=== PATIENT | male | born 1960 | race Asian ===

== ENCOUNTER 2019-10-10 16:07 | Inpatient (IN) | payer OTHER ==
[~2019-10-10] VITALS: Ht 172.7 cm; Wt 68.5 kg
[2019-10-10] MEDS ORDERED: ATORVASTATIN CA40 MG ORAL (16:29)
[2019-10-10] MEDS ORDERED: FLOMAX0.4 MG ORAL (16:29)
[2019-10-10] MEDS ORDERED: Omnipaque-300 100ml vial INJ PRN (16:30)
[2019-10-10] MEDS ORDERED: Morphine Sulfate 4mg/ml Inj (IV USE ONLY) IVP ONE (16:30)
[2019-10-10] MEDS ORDERED: METFORMIN HCL500 M1 ORAL (16:34)
[2019-10-10 16:40] VITALS: BP 106/57
[2019-10-10 16:53] LABS: ANION GAP 13 mmol/L (5-15); BLOOD UREA NITROGEN 24 mg/dL (7-18); CALCIUM 9.5 MG/DL (8.5-10.1); CARBON DIOXIDE 27 MMOL/L (21-32); CHLORIDE 99 MMOL/L (98-107); CREATININE 1.1 MG/DL (0.55-1.30); POTASSIUM 3.8 MMOL/L (3.5-5.1); SODIUM 139 MMOL/L (136-145)
[2019-10-10 16:59] LABS: ALANINE AMINOTRANSFERASE 328 U/L (12-78); ALBUMIN 4.1 G/DL (3.4-5.0); ALBUMIN/GLOBULIN RATIO 1.2 (1.0-2.7); ALKALINE PHOSPHATASE 172 U/L (46-116); ASPARTATE AMINO TRANSFERASE 783 U/L (15-37); BILIRUBIN,TOTAL 1.5 MG/DL (0.2-1.0)
[2019-10-10 17:00] LABS: BASOPHILS % (AUTO) 0.6 % (0.0-2.0); EOSINOPHILS % (AUTO) 0.4 % (0.0-3.0); HEMATOCRIT 41.9 % (42.0-52.0); HEMOGLOBIN 14.5 G/DL (14.2-18.0); LYMPHOCYTES % (AUTO) 22.1 % (20.0-45.0); MEAN CORPUSCULAR VOLUME 92 FL (80-99); MONOCYTES % (AUTO) 4.1 % (1.0-10.0); NEUTROPHILS % (AUTO) 72.8 % (45.0-75.0); PLATELET COUNT 174 K/UL (150-450); RED BLOOD COUNT 4.56 M/UL (4.70-6.10); RED CELL DISTRIBUTION WIDTH 11.3 % (11.6-14.8)
[2019-10-10] MEDS ORDERED: HYDROmorphone 1mg/ml Carpuject IVP ONE (17:30)
[2019-10-10] MEDS ORDERED: HYDROmorphone 1mg/ml Carpuject ONE (17:33)
[2019-10-10 18:00] VITALS: BP 157/83
[2019-10-10] MEDS ORDERED: Acetaminophen 500mg (ES) tab ORAL ONE (18:00)
--- NOTE | 2019-10-10 18:19 | Emergency Room Report ---
History of Present Illness General Chief Complaint: Abdominal Pain Source: Family Member, EMS Present Illness HPI 59-year-old male presents to ED abdominal pain and vomiting. Brought in by EMS. States that pain started this morning. Pain is epigastric, 10 out of 10, sharp, nonradiating. Denies fevers or chills. Denies chest pain or shortness of breath. History of colon cancer with multiple surgeries. Has been treated with chemotherapy. Had a recent colonoscopy done. No other aggravating relieving factors. Denies any other associated symptoms Allergies: Coded Allergies: No Known Allergies (Unverified , 10/10/19) COVID-19 Screening Contact w/high risk pt: No Experienced COVID-19 symptoms?: Yes COVID-19 Testing performed TRICHOLOGIST: Yes COVID-19 Screening: Negative COVID-19 COVID-19 Testing Source: unknown Patient History Past Medical History: DM, HTN, other - colon cancer Past Surgical History: other - sigmoid resection, double barrel tranverse colostomy, reverse colostomy, s/p TURP Pertinent Family History: none Social History: Denies: smoking, alcohol use, drug use Immunizations: UTD Reviewed Nursing Documentation: PMH: Agreed; PSxH: Agreed Nursing Documentation-PMH Past Medical History: No History, Except For Hx Cardiac Problems: No Hx Hypertension: Yes Hx Pacemaker: No Hx Asthma: No Hx COPD: No Hx Diabetes: Yes Hx Cancer: Yes - Stage 4 sigmoid colon CA and prostate CA Hx Gastrointestinal Problems: No Hx Dialysis: No History Of Psychiatric Problem: No Hx Neurological Problems: No Hx Cerebrovascular Accident: No Hx Seizures: No Review of Systems All Other Systems: negative except mentioned in HPI Physical Exam Vital Signs Date Time Temp Pulse Resp B/P (MAP) Pulse Ox O2 Delivery O2 Flow Rate FiO2 10/10/19 16:13 98.2 59 18 126/76 (93) 99 Room Air Sp02 EP Interpretation: reviewed, normal General Appearance: alert, GCS 15, non-toxic, mild distress Head: normocephalic, atraumatic Eyes: bilateral eye normal inspection, bilateral eye PERRL ENT: hearing grossly normal, normal pharynx, no angioedema, normal voice Neck: full range of motion, supple/symm/no masses Respiratory: chest non-tender, lungs clear, normal breath sounds, speaking full sentences Cardiovascular #1: regular rate, rhythm, no edema Cardiovascular #2: 2+ carotid (R), 2+ carotid (L), 2+ radial (R), 2+ radial (L) , 2+ dorsalis pedis (R), 2+ dorsalis pedis (L) Gastrointestinal: normal bowel sounds, soft, non-distended, no guarding, no rebound, tenderness, other - midline surgical scar noted Rectal: deferred Genitourinary: normal inspection, no CVA tenderness Musculoskeletal: back normal, normal range of motion, gait/station normal, non- tender Neurologic: alert, motor strength/tone normal, oriented x3, sensory intact, responsive, speech normal Psychiatric: judgement/insight normal, memory normal, mood/affect normal, no suicidal/homicidal ideation Reflexes: 3+ bicep (R), 3+ bicep (L), 3+ tricep (R), 3+ tricep (L), 3+ knee (R) , 3+ knee (L) Skin: no rash Lymphatic: no adenopathy Procedures Critical Care Time Critical Care Time i. I feel this is a highly complex case requiring extensive working including EKG/Rhythm strip, Xray/CT/US, Blood/urine lab work, repeat exams while in ED, and administration of strong opiates/narcotics for pain control, admission to hospital or close patient follow up. Total time: 60 min bedside evaluation and treatment excludes procedures (EKG). Reason for critical care: severe sepsis, gallstone pancreatitis Possible complications: hypotension, hypertension, MN, shock, arrhythmias, metabolic acidosis, end organ damage, respiratory failure. Interventions: Labs, IV fluids, CT, pain meds, discussion with patient surgeon, additional fluid boluses. Broad-spectrum antibiotics. Discussed with surgery. Course: Presenting with abdominal pain. History of resection as well as colostomy and reversal. Status post colonoscopy with polyp removal last week. Leukocytosis noted. LFTs elevated. Lipase greater than 14,000, initial lactic 2.5. CT shows gallstone pancreatitis. Atelectasis in lower lung [place]. COVID swab negative. Repeat lactic 9.9. Discussed with surgery. Broad- spectrum antibiotics given. Consultations: nursing staff, EMS, family Performed by: Dr Muñiz Tolerated well condition = critical j. because of unstable vital signs this patient had a condition that could potentially threaten life or limb. I feel this is a critical patient who required my full attention while patient was considered critical. Total Critical Care Time excluding procedures was greater than 60 minutes Medical Decision Making Diagnostic Impression: Primary Impression: Gallstone pancreatitis Additional Impressions: Pneumonia Qualified Codes: J18.9 - Pneumonia, unspecified organism Severe sepsis Colon cancer Qualified Codes: C18.7 - Malignant neoplasm of sigmoid colon ER Course Hospital Course 59-year-old male presents with abdominal pain and vomiting. History of colon cancer. Status post colonoscopy and polyp removal Differential diagnoses include: gastritis, pancreatitis, SBO Clinical course Patient placed on stretcher. potline monitor. After initial history and physical I ordered labs, IV fluids, UA, pain medication and CT scan Labs - noted leukocytosis, Hb/Hct stable. electrolytes ok. Lipase > 07355, LFTS elevated, lactic 2.5 CT abdomen and pelvis - distended GB, pancreatitis clinically concerning for pancreatitis. Discussed case with his colorectal surgeon at [facility] Dr. Karyna May. Repeat lactic 9.9. Given broad- spectrum antibiotics. Rapid COVID negative Dr Baxter consulted. Dr Ortega will admit patient I feel this is a highly complex case requiring extensive working including EKG/ Rhythm strip, Xray/CT/US, Blood/urine lab work, repeat exams while in ED, and administration of strong opiates/narcotics for pain control, admission to hospital or close patient follow up. Diagnosis -gallstone pancreatitis, pneumonia, severe sepsis, colon cancer Patient admitted to SDU in critcal condition Labs Test 10/10/19 16:20 10/10/19 17:05 10/10/19 17:50 10/10/19 18:47 White Blood Count 11.0 K/UL (4.8-10.8) Red Blood Count 4.56 M/UL (4.70-6.10) Hemoglobin 14.5 G/DL (14.2-18.0) Hematocrit 41.9 % (42.0-52.0) Mean Corpuscular Volume 92 FL (80-99) Mean Corpuscular Hemoglobin 31.8 PG (27.0-31.0) Mean Corpuscular Hemoglobin Concent 34.5 G/DL (32.0-36.0) Red Cell Distribution Width 11.3 % (11.6-14.8) Platelet Count 174 K/UL (150-450) Mean Platelet Volume 7.4 FL (6.5-10.1) Neutrophils (%) (Auto) 72.8 % (45.0-75.0) Lymphocytes (%) (Auto) 22.1 % (20.0-45.0) Monocytes (%) (Auto) 4.1 % (1.0-10.0) Eosinophils (%) (Auto) 0.4 % (0.0-3.0) Basophils (%) (Auto) 0.6 % (0.0-2.0) Prothrombin Time 10.9 SEC (9.30-11.50) Prothromb Time International Ratio 1.0 (0.9-1.1) Activated Partial Thromboplast Time 22 SEC (23-33) Sodium Level 139 MMOL/L (136-145) Potassium Level 3.8 MMOL/L (3.5-5.1) Chloride Level 99 MMOL/L (98-107) Carbon Dioxide Level 27 MMOL/L (21-32) Anion Gap 13 mmol/L (5-15) Blood Urea Nitrogen 24 mg/dL (7-18) Creatinine 1.1 MG/DL (0.55-1.30) Estimat Glomerular Filtration Rate > 60 mL/min (>60) Glucose Level 188 MG/DL (74-106) Calcium Level 9.5 MG/DL (8.5-10.1) Total Bilirubin 1.5 MG/DL (0.2-1.0) Direct Bilirubin 1.0 MG/DL (0.0-0.3) Aspartate Amino Transf (AST/SGOT) 783 U/L (15-37) Alanine Aminotransferase (ALT/SGPT) 328 U/L (12-78) Alkaline Phosphatase 172 U/L (46-116) Total Protein 7.5 G/DL (6.4-8.2) Albumin 4.1 G/DL (3.4-5.0) Globulin 3.4 g/dL Albumin/Globulin Ratio 1.2 (1.0-2.7) Amylase Level 4350 U/L (25-115) Lipase 74876 U/L (73-393) Lactic Acid Level 2.50 mmol/L (0.4-2.0) 9.90 mmol/L (0.66-2.22) Urine Color Lisa Urine Appearance Clear Urine pH 5 (4.5-8.0) Urine Specific [place] 1.005 (1.005-1.035) Urine Protein 1+ (NEGATIVE) Urine Glucose (UA) 2+ (NEGATIVE) Urine Ketones 1+ (NEGATIVE) Urine Blood 4+ (NEGATIVE) Urine Nitrite Negative (NEGATIVE) Urine Bilirubin Negative (NEGATIVE) Urine Ictotest Negative (NEGATIVE) Urine Urobilinogen Normal MG/DL (0.0-1.0) Urine Leukocyte Esterase Negative (NEGATIVE) Urine RBC 20-30 /HPF (0 - 0) Urine WBC 0-2 /HPF (0 - 0) Urine Squamous Epithelial Cells Occasional /LPF Urine Bacteria Few /HPF (NONE) CT/MRI/US Diagnostic Results CT/MRI/US Diagnostic Results : Imaging Test Ordered: CT A/P Impression EXAM: CT Abdomen and Pelvis With Intravenous Contrast CLINICAL HISTORY: ABD PAIN TECHNIQUE: Axial computed tomography images of the abdomen and pelvis with intravenous contrast. CTDI is 5.5 mGy and DLP is 299.8 mGy-cm. One or more of the following dose reduction techniques were used: automated exposure control, adjustment of the mA and/or kV according to patient size, use of iterative reconstruction technique. COMPARISON: No relevant prior studies available. FINDINGS: Mild subsegmental basilar atelectasis, left more pronounced than right. No acute basilar infiltrate. Extensive peripancreatic edema system with severe, acute pancreatitis. No clear focal glandular necrosis. No loculated fluid collection. No hemorrhage or gas. Mild extrahepatic biliary dilation. Enhancing gallbladder wall. No radiopaque gallstone. Recommend correlation for elevated biliary markers in addition to pancreatic enzymes. Renal cysts and hypodensities that are too small to characterize. No hydronephrosis. Transverse colonic resection with intact anastomosis. No bowel obstruction. The appendix is unremarkable. Aortoiliac atherosclerosis without aneurysm. No acute fracture. Mild thoracolumbar spondylosis. IMPRESSION: Acute pancreatitis. Distended gallbladder and CBD. No radiopaque gallstone, but recommend clinical/laboratory correlation. Incidental findings as above. Last Vital Signs Date Time Temp Pulse Resp B/P (MAP) Pulse Ox O2 Delivery O2 Flow Rate FiO2 10/10/19 18:12 98.2 10/10/19 16:40 63 22 106/57 95 Room Air Status: improved Disposition: ADMITTED INPATIENT Condition: Critical Referrals: [facility]ERR[facility] (PCP) Hoang Muñiz MD Oct 10, 2019 18:19
--- NOTE | 2019-10-10 18:36 | Diagnostic Imaging Report ---
EXAM: CT Abdomen and Pelvis With Intravenous Contrast CLINICAL HISTORY: ABD PAIN TECHNIQUE: Axial computed tomography images of the abdomen and pelvis with intravenous contrast. CTDI is 5.5 mGy and DLP is 299.8 mGy-cm. One or more of the following dose reduction techniques were used: automated exposure control, adjustment of the mA and/or kV according to patient size, use of iterative reconstruction technique. COMPARISON: No relevant prior studies available. FINDINGS: Mild subsegmental basilar atelectasis, left more pronounced than right. No acute basilar infiltrate. Extensive peripancreatic edema system with severe, acute pancreatitis. No clear focal glandular necrosis. No loculated fluid collection. No hemorrhage or gas. Mild extrahepatic biliary dilation. Enhancing gallbladder wall. No radiopaque gallstone. Recommend correlation for elevated biliary markers in addition to pancreatic enzymes. Renal cysts and hypodensities that are too small to characterize. No hydronephrosis. Transverse colonic resection with intact anastomosis. No bowel obstruction. The appendix is unremarkable. Aortoiliac atherosclerosis without aneurysm. No acute fracture. Mild thoracolumbar spondylosis. IMPRESSION: Acute pancreatitis. Distended gallbladder and CBD. No radiopaque gallstone, but recommend clinical/laboratory correlation. Incidental findings as above.
[2019-10-10] MEDS ORDERED: Piperacillin/Tazobactam 3.375 GM in NS 110 ML IVPB ONE (18:45)
[2019-10-10 18:48] VITALS: BP 141/82
[2019-10-10 18:52] LABS: APPEARANCE,URINE CLEAR; BILIRUBIN, URINE NEGATIVE (NEGATIVE); COLOR,URINE AMBER; GLUCOSE, URINE (UA) 2+ (NEGATIVE); KETONES,URINE 1+ (NEGATIVE); LEUKOCYTE ESTERASE ,URINE NEGATIVE (NEGATIVE); NITRITE,URINE NEGATIVE (NEGATIVE); PH,URINE 5 (4.5-8.0); PROTEIN,URINE 1+ (NEGATIVE); UROBILINOGEN,URINE NORMAL MG/DL (0.0-1.0)
[2019-10-10] MEDS ORDERED: Azithromycin 500 MG in NS 275 ML IV ONE (19:30)
[2019-10-10 21:56] VITALS: BP 125/74
[2019-10-10] MEDS: Morphine Sulfate 2mg/ml Inj(IV/IM USE ONLY) IVP PRN (23:02)
[2019-10-11] VITALS (7 sets, daily range): BP systolic 129–152; BP diastolic 69–79
[2019-10-11] MEDS: Morphine Sulfate 2mg/ml Inj(IV/IM USE ONLY) IVP PRN (05:02)
[2019-10-11] MEDS ORDERED: Morphine Sulfate 2mg/ml Inj(IV/IM USE ONLY) IVP SCH (08:30)
[2019-10-11] MEDS ORDERED: Pantoprazole Inj IVP SCH (09:00)
[2019-10-11] MEDS ORDERED: HYDROmorphone 1mg/ml Carpuject IVP PRN (09:00)
--- NOTE | 2019-10-11 10:15 | General Progress Note ---
Assessment/Plan Assessment/Plan: pancreatitis elevated LFTS h/o colon CA ivf npo pain meds MRCP ercp if needed Subjective Allergies: Coded Allergies: No Known Allergies (Unverified , 10/10/19) Objective Last 24 Hour Vital Signs Date Time Temp Pulse Resp B/P (MAP) Pulse Ox O2 Delivery O2 Flow Rate FiO2 10/11/19 08:00 97.0 62 20 142/78 (99) 98 10/11/19 05:32 98.1 10/11/19 05:00 81 20 152/69 (96) 99 10/11/19 04:00 98.0 76 20 142/69 (93) 97 10/11/19 04:00 2.0 10/11/19 04:00 Nasal Cannula 2.0 10/11/19 03:42 81 10/11/19 00:00 98.1 94 20 129/77 (94) 96 10/11/19 00:00 Nasal Cannula 2.0 10/11/19 00:00 2.0 10/10/19 23:30 94 10/10/19 22:03 97 10/10/19 22:00 Nasal Cannula 2.0 10/10/19 22:00 2.0 10/10/19 22:00 Nasal Cannula 2.0 10/10/19 21:56 98.6 95 18 125/74 (91) 100 10/10/19 21:49 99.8 92 20 132/78 99 Nasal Cannula 2.0 10/10/19 19:00 101.4 10/10/19 18:48 98.2 102 20 141/82 99 Room Air 10/10/19 18:12 98.2 10/10/19 18:00 101.7 106 20 157/83 99 Room Air 10/10/19 17:29 98.2 10/10/19 16:40 98.2 63 22 106/57 95 Room Air 10/10/19 16:38 59 18 Room Air 10/10/19 16:13 98.2 59 18 126/76 (93) 99 Room Air Intake and Output 10/10/19 10/11/19 19:00 07:00 Intake Total 803 ml Output Total 756 ml Balance 47 ml Intake IV Total 803 ml Output Urine Total 756 ml Laboratory Tests 10/10/19 16:20: White Blood Count 11.0H, Red Blood Count 4.56L, Hemoglobin 14.5, Hematocrit 41.9L, Mean Corpuscular Volume 92, Mean Corpuscular Hemoglobin 31.8H, Mean Corpuscular Hemoglobin Concent 34.5, Red Cell Distribution Width 11.3L, Platelet Count 174, Mean Platelet Volume 7.4, Neutrophils (%) (Auto) 72.8, Lymphocytes (%) (Auto) 22.1, Monocytes (%) (Auto) 4.1, Eosinophils (%) (Auto) 0.4, Basophils (%) (Auto) 0.6, Prothrombin Time 10.9, Prothromb Time International Ratio 1.0, Activated Partial Thromboplast Time 22L, Sodium Level 139, Potassium Level 3.8, Chloride Level 99, Carbon Dioxide Level 27, Anion Gap 13, Blood Urea Nitrogen 24H, Creatinine 1.1, Estimat Glomerular Filtration Rate > 60, Glucose Level 188H, Calcium Level 9.5, Total Bilirubin 1.5H, Direct Bilirubin 1.0H, Aspartate Amino Transf (AST/SGOT) 783H, Alanine Aminotransferase (ALT/SGPT) 328H, Alkaline Phosphatase 172H, Total Protein 7.5, Albumin 4.1, Globulin 3.4, Albumin/Globulin Ratio 1.2, Amylase Level 4350*H, Lipase [id number] 10/10/19 17:05: Lactic Acid Level 2.50H 10/10/19 17:50: Lactic Acid Level 9.90H 10/10/19 18:47: Urine Color Lisa, Urine Appearance Clear, Urine pH 5, Urine Specific [place] 1.005, Urine Protein 1+H, Urine Glucose (UA) 2+H, Urine Ketones 1+H, Urine Blood 4+H, Urine Nitrite Negative, Urine Bilirubin Negative, Urine Ictotest Negative, Urine Urobilinogen Normal, Urine Leukocyte Esterase Negative, Urine RBC 20-30H, Urine WBC 0-2, Urine Squamous Epithelial Cells Occasional, Urine Bacteria Few 10/11/19 04:00: Lactic Acid Level 2.00 Height (Feet): 5 Height (Inches): 8.00 Weight (Pounds): 160 General Appearance: alert EENT: normal ENT inspection Neck: supple Cardiovascular: tachycardia Respiratory/Chest: decreased breath sounds Abdomen: hypoactive bowel sounds, tender Extremities: non-tender Ken Justin MD Oct 11, 2019 10:15
[2019-10-11] MEDS ORDERED: NovoLOG Insulin Flexpen SUBQ SCH ×2 (11:30→16:30)
--- NOTE | 2019-10-11 12:48 | Consultation ---
History of Present Illness General Date patient seen: Oct 11, 2019 Reason for Hospitalization: Abdominal Pain Present Illness HPI This is a 59-year-old male with history of colon cancer status post prior colostomy multiple abdominal surgeries resection chemotherapy was been doing well until recently when developed pain nausea and vomiting. Came to [facility] for evaluation identified to have severe pancreatitis. Admitted further care management. Surgery called to eval and assist with care. Patient seen, patient evaluate, chart reviewed. Patient generalized abdominal pain. Labs noted. Exam as below. States pain 6 out of 10 without radiation. Cramping. Abnormal labs. Lactic acidosis. CT as below. Allergies: Coded Allergies: No Known Allergies (Unverified , 10/10/19) COVID-19 Screening Contact w/high risk pt: No Experienced COVID-19 symptoms?: No Medication History Scheduled Atorvastatin Calcium* (Atorvastatin Calcium*), 20 MG ORAL BEDTIME, (Reported) Metformin Hcl* (Metformin Hcl*), 500 MG ORAL TWICE A DAY, (Reported) Tamsulosin HCl (Flomax), 0.4 MG ORAL BID, (Reported) Patient History History Provided By: Patient, Medical Record, PMD Healthcare decision maker Resuscitation status Advanced Directive on File Past Medical/Surgical History Past Medical/Surgical History: (1) Colon cancer (2) Pneumonia (3) Severe sepsis (4) Gallstone pancreatitis Review of Systems Review of Symptoms General ROS: no weight loss or fever Psychological ROS: no depression or mood changes, no memory loss Ophthalmic ROS: no visual changes or eye irritation ENT ROS: no nasal congestion, hearing loss, dizziness Allergy and Immunology ROS: no allergic symptoms or urticaria Hematological and Lymphatic ROS: no swollen glands, unusual bleeding or bruising Endocrine ROS: no polyuria, polydipsia, weight changes, temperature intolerance Respiratory ROS: no cough, shortness of breath, or wheezing Cardiovascular ROS: no chest pain or dyspnea on exertion Gastrointestinal ROS: +abdominal pain, no bright red blood in stool. Musculoskeletal ROS: no myalgias or arthralgias Neurological ROS: no TIA or stroke symptoms Dermatological ROS: no new or changing skin lesions, rashes or pruritis Physical Exam Physical Exam General appearance: alert, cooperative, no distress, appears stated age Head: Normocephalic, without obvious abnormality, atraumatic Eyes: conjunctivae/corneas clear. PERRL, EOM's intact. Fundi benign Throat: Lips, mucosa, and tongue normal. Teeth and gums normal Neck: supple, symmetrical, trachea midline, no adenopathy, thyroid: not enlarged, symmetric, no tenderness/mass/nodules, no carotid bruit and no JVD Lungs: clear to auscultation bilaterally Heart: regular rate and rhythm, S1, S2 normal, no murmur, click, rub or gallop Abdomen: soft, generalized tender. Bowel sounds normal. No masses, no organomegaly prior incisions well healed Extremities: extremities normal, atraumatic, no cyanosis or edema Pulses: 2+ and symmetric Skin: Skin color, texture, turgor normal. No rashes or lesions Neurologic: Grossly normal Last 24 Hour Vital Signs Date Time Temp Pulse Resp B/P (MAP) Pulse Ox O2 Delivery O2 Flow Rate FiO2 10/11/19 12:00 2.0 10/11/19 08:00 2.0 10/11/19 08:00 63 10/11/19 08:00 97.0 62 20 142/78 (99) 98 10/11/19 05:32 98.1 10/11/19 05:00 81 20 152/69 (96) 99 10/11/19 04:00 98.0 76 20 142/69 (93) 97 10/11/19 04:00 2.0 10/11/19 04:00 Nasal Cannula 2.0 10/11/19 03:42 81 10/11/19 00:00 98.1 94 20 129/77 (94) 96 10/11/19 00:00 Nasal Cannula 2.0 10/11/19 00:00 2.0 10/10/19 23:30 94 10/10/19 22:03 97 10/10/19 22:00 Nasal Cannula 2.0 10/10/19 22:00 2.0 10/10/19 22:00 Nasal Cannula 2.0 10/10/19 21:56 98.6 95 18 125/74 (91) 100 10/10/19 21:49 99.8 92 20 132/78 99 Nasal Cannula 2.0 10/10/19 19:00 101.4 10/10/19 18:48 98.2 102 20 141/82 99 Room Air 10/10/19 18:12 98.2 10/10/19 18:00 101.7 106 20 157/83 99 Room Air 10/10/19 17:29 98.2 10/10/19 16:40 98.2 63 22 106/57 95 Room Air 10/10/19 16:38 59 18 Room Air 10/10/19 16:13 98.2 59 18 126/76 (93) 99 Room Air Intake and Output 10/10/19 10/11/19 19:00 07:00 Intake Total 803 ml Output Total 756 ml Balance 47 ml Intake IV Total 803 ml Output Urine Total 756 ml Laboratory Tests Test 10/10/19 16:20 10/10/19 17:05 10/10/19 17:50 10/10/19 18:47 White Blood Count 11.0 K/UL (4.8-10.8) H Red Blood Count 4.56 M/UL (4.70-6.10) L Hemoglobin 14.5 G/DL (14.2-18.0) Hematocrit 41.9 % (42.0-52.0) L Mean Corpuscular Volume 92 FL (80-99) Mean Corpuscular Hemoglobin 31.8 PG (27.0-31.0) H Mean Corpuscular Hemoglobin Concent 34.5 G/DL (32.0-36.0) Red Cell Distribution Width 11.3 % (11.6-14.8) L Platelet Count 174 K/UL (150-450) Mean Platelet Volume 7.4 FL (6.5-10.1) Neutrophils (%) (Auto) 72.8 % (45.0-75.0) Lymphocytes (%) (Auto) 22.1 % (20.0-45.0) Monocytes (%) (Auto) 4.1 % (1.0-10.0) Eosinophils (%) (Auto) 0.4 % (0.0-3.0) Basophils (%) (Auto) 0.6 % (0.0-2.0) Prothrombin Time 10.9 SEC (9.30-11.50) Prothromb Time International Ratio 1.0 (0.9-1.1) Activated Partial Thromboplast Time 22 SEC (23-33) L Sodium Level 139 MMOL/L (136-145) Potassium Level 3.8 MMOL/L (3.5-5.1) Chloride Level 99 MMOL/L (98-107) Carbon Dioxide Level 27 MMOL/L (21-32) Anion Gap 13 mmol/L (5-15) Blood Urea Nitrogen 24 mg/dL (7-18) H Creatinine 1.1 MG/DL (0.55-1.30) Estimat Glomerular Filtration Rate > 60 mL/min (>60) Glucose Level 188 MG/DL (74-106) H Calcium Level 9.5 MG/DL (8.5-10.1) Total Bilirubin 1.5 MG/DL (0.2-1.0) H Direct Bilirubin 1.0 MG/DL (0.0-0.3) H Aspartate Amino Transf (AST/SGOT) 783 U/L (15-37) H Alanine Aminotransferase (ALT/SGPT) 328 U/L (12-78) H Alkaline Phosphatase 172 U/L (46-116) H Total Protein 7.5 G/DL (6.4-8.2) Albumin 4.1 G/DL (3.4-5.0) Globulin 3.4 g/dL Albumin/Globulin Ratio 1.2 (1.0-2.7) Amylase Level 4350 U/L (25-115) *H Lipase 55021 U/L (73-393) H Lactic Acid Level 2.50 mmol/L (0.4-2.0) H 9.90 mmol/L (0.66-2.22) H Urine Color Lisa Urine Appearance Clear Urine pH 5 (4.5-8.0) Urine Specific [place] 1.005 (1.005-1.035) Urine Protein 1+ (NEGATIVE) H Urine Glucose (UA) 2+ (NEGATIVE) H Urine Ketones 1+ (NEGATIVE) H Urine Blood 4+ (NEGATIVE) H Urine Nitrite Negative (NEGATIVE) Urine Bilirubin Negative (NEGATIVE) Urine Ictotest Negative (NEGATIVE) Urine Urobilinogen Normal MG/DL (0.0-1.0) Urine Leukocyte Esterase Negative (NEGATIVE) Urine RBC 20-30 /HPF (0 - 0) H Urine WBC 0-2 /HPF (0 - 0) Urine Squamous Epithelial Cells Occasional /LPF Urine Bacteria Few /HPF (NONE) Test 10/11/19 04:00 Lactic Acid Level 2.00 mmol/L (0.4-2.0) Microbiology Date/Time Source Procedure Growth Status 10/10/19 18:45 Blood Blood Culture - Preliminary Resulted 10/10/19 18:52 Nasopharynx SARS-CoV-2 RdRp Gene Assay - Final Complete Height (Feet): 5 Height (Inches): 8.00 Weight (Pounds): 160 Medications Current Medications Medications (Trade) Dose Ordered Sig/Freida Route PRN Reason Start Time Stop Time Status Last Admin Dose Admin Dextrose (Dextrose 50%) 25 ml Q30M PRN IV Hypoglycemia 10/11/19 11:00 01/09/20 10:59 Dextrose (Dextrose 50%) 50 ml Q30M PRN IV Hypoglycemia 10/11/19 11:00 01/09/20 10:59 Hydromorphone HCl (Dilaudid) 1 mg Q4H PRN IVP For Pain 10/11/19 09:00 10/18/19 08:59 Insulin Aspart (NovoLOG) BIAC SUBQ 10/11/19 16:30 01/09/20 11:29 Iohexol (OMNIPAQUE-300 100ml) 100 ml NOW PRN INJ Radiology Procedure 10/10/19 16:30 10/12/19 16:26 Levofloxacin 100 ml @ 100 mls/hr Q24H IVPB 10/11/19 21:00 10/18/19 20:59 Ondansetron HCl (Zofran) 4 mg Q4H PRN IVP Nausea & Vomiting 10/10/19 22:45 11/09/19 22:44 10/11/19 05:04 Pantoprazole (Protonix) 40 mg DAILY IVP 10/11/19 09:00 11/10/19 08:59 10/11/19 08:46 Piperacillin Sod/ Tazobactam Sod 3.375 gm/Sodium Chloride 110 ml @ 27.5 mls/hr EVERY 8 HOURS IVPB 10/11/19 14:00 10/16/19 13:59 Sodium Chloride 1,000 ml @ 100 mls/hr Q10H IV 10/10/19 23:00 11/09/19 22:59 10/11/19 08:46 Assessment/Plan Problem List: (1) Colon cancer ICD Codes: C18.9 - Malignant neoplasm of colon, unspecified SNOMED: 785658743 Qualifiers: Qualified Codes: C18.7 - Malignant neoplasm of sigmoid colon (2) Pneumonia ICD Codes: J18.9 - Pneumonia, unspecified organism SNOMED: 570758746 Qualifiers: Qualified Codes: J18.9 - Pneumonia, unspecified organism (3) Severe sepsis ICD Codes: A41.9 - Sepsis, unspecified organism; R65.20 - Severe sepsis without septic shock SNOMED: 13298878 (4) Gallstone pancreatitis Assessment & Plan: 59-year-old male history of colon cancer chemo therapy resection doing well to recently developed arm pain nausea and vomiting. Identified to have severe acute gallstone pancreatitis. Abdomen tender but not in acute abdomen with peritonitis Currently no nausea vomiting leukocytosis lactic acidosis improving with resuscitation N.p.o. IV fluids Pending imaging studies Trend labs We will follow with recommendations thank you for let me participate in patient' s care mild subsegmental basilar atelectasis, left more pronounced than right. No acute basilar infiltrate. Extensive peripancreatic edema system with severe, acute pancreatitis. No clear focal glandular necrosis. No loculated fluid collection. No hemorrhage or gas. Mild extrahepatic biliary dilation. Enhancing gallbladder wall. No radiopaque gallstone. Recommend correlation for elevated biliary markers in addition to pancreatic enzymes. Renal cysts and hypodensities that are too small to characterize. No hydronephrosis. Transverse colonic resection with intact anastomosis. No bowel obstruction. The appendix is unremarkable. Aortoiliac atherosclerosis without aneurysm. No acute fracture. Mild thoracolumbar spondylosis. IMPRESSION: Acute pancreatitis. Distended gallbladder and CBD. No radiopaque gallstone, but recommend clinical/laboratory correlation. Incidental findings as above. ICD Codes: K85.10 - Biliary acute pancreatitis without necrosis or infection; R65.20 - Severe sepsis without septic shock SNOMED: [id number] Yury Baxter Oct 11, 2019 12:48
[2019-10-11] MEDS ORDERED: Piperacillin/Tazobactam 3.375 GM in NS 110 ML IVPB SCH (14:00)
--- NOTE | 2019-10-11 14:36 | Diagnostic Imaging Report ---
Indication: Pain, trauma Technique: 3 views left hand Comparison: none Findings: There is a nondisplaced fracture the base of the fourth metacarpal. No other acute fractures. No dislocations. Impression: Positive for fourth metacarpal base fracture Unit nurse notified at the time of interpretation.
[2019-10-11] MEDS: Piperacillin/Tazobactam 3.375 GM in NS 110 ML IVPB SCH ×2 (14:58→22:14)
--- NOTE | 2019-10-11 15:13 | Diagnostic Imaging Report ---
Indication: Abdominal pain, pancreatitis, abnormal liver function tests Technique: Coronal and axial single shot fast spin-echo breath-hold, axial T2 FRFSE, 2-D thick slab MRCP, AXIAL 2-D FIESTA fat saturated, axial 3-D dual echo breath-hold, water weighted axial LAVA FLEX, revealed 3-D MRCP images were obtained of the abdomen. MIP reconstructions were generated of the bile ducts Comparison: Reference made to abdomen pelvis CT dated 10/10/2019 Findings: Gallbladder demonstrates filling defects consistent with gallstones. The gallbladder wall is mildly thickened and mildly edematous. The common hepatic duct is mildly ectatic, measuring up to 9 mm in diameter. The common bile duct is normal in caliber. No intraluminal filling defect or obstructing stone is demonstrated. There is somewhat low insertion of the cystic duct into the common hepatic duct The pancreas is enlarged and edematous, and considerable phlegmon is seen within upper abdominal fat, similar in distribution to that described on prior CT scan. No discrete walled off fluid collection demonstrated. The pancreatic duct is normal in caliber. No focal liver lesion demonstrated. The spleen, adrenals are unremarkable. The kidneys demonstrate cysts bilaterally. The included upper pelvis appears unremarkable. Impression: Evidence of acute pancreatitis, also described on recent CT scan. No discrete fluid collection to suggest abscess or early pseudocyst formation Cholelithiasis. Mild gallbladder wall thickening. This could be related to the adjacent pancreatic inflammation, or could indicate acute cholecystitis. Correlate with clinical findings, consider nuclear medicine hepatobiliary scan if clinically indicated Ectatic common hepatic duct demonstrated, significance/etiology uncertain. Normal caliber common bile duct. No definite downstream obstructive lesion Incidental finding of bilateral renal cysts
--- NOTE | 2019-10-11 15:14 | Consultation ---
DATE OF CONSULTATION: 10/11/2019 INFECTIOUS DISEASE CONSULTATION CONSULTING PHYSICIAN: Mario Sawyer MD. REFERRING PHYSICIAN: Evert Ortega MD. REASON FOR CONSULTATION: Pancreatitis. HISTORY OF PRESENTING ILLNESS: This is a 59-year-old gentleman with history of diabetes, hypertension, colon cancer, status post sigmoid resection, colostomy, and status post TURP, who came in after a fall. He also has abdominal pain and vomiting. He was found to have pancreatitis and an Infectious Disease consultation has been obtained for antibiotics. PAST MEDICAL HISTORY: 1. History of diabetes. 2. Hypertension. 3. Colon cancer, status post colostomy with reversal of the colostomy. SOCIAL HISTORY: He does not smoke, drink, or use drugs. FAMILY HISTORY: Noncontributory. REVIEW OF SYSTEMS: RESPIRATORY: No fever, chills, cough, or shortness of breath, or chest pain. CARDIAC: No chest pain. No palpitation. No dizziness. No syncope. GASTROINTESTINAL: He had nausea and vomiting. He had abdominal pain. No diarrhea. MUSCULOSKELETAL: He complains of left arm pain. MEDICATIONS: As an inpatient, he is on Levaquin, Protonix, Dilaudid, Zofran. ALLERGIES: No known drug allergies. PHYSICAL EXAMINATION: VITAL SIGNS: Temperature 97, T-max of 101.7, pulse of 62, respiratory rate 20, blood pressure 142/78. O2 saturation of 98%. HEENT: Pupils are equally reactive to light and accommodation. Mouth appears clean without thrush. NECK: Supple. No adenopathy. No JVD. CARDIOVASCULAR: Regular rate and rhythm. No murmurs. LUNGS: Clear to auscultation bilaterally. No crackles. No wheezes. ABDOMEN: Soft, nontender. No organomegaly. EXTREMITIES: No cyanosis, no clubbing, no edema. LABORATORY AND DIAGNOSTIC DATA: White count of 11, hemoglobin 14.5, hematocrit 41.9, MCV 92, platelet count of 174,000. Sodium 139, potassium 3.8, chloride 99, bicarb 27, BUN 24, creatinine 1.1. Glucose 188. Calcium 9.5. Total bilirubin 1.5, direct bilirubin 1, AST 783, ALT 328, alkaline phosphatase 172. Total protein 7.5, albumin 4.1. Amylase 4350, lipase 08882. UA is showing 0 to 2 white cells. Blood cultures showing gram-negative rods. COVID-19 rapid test is negative. CT abdomen and pelvis showing acute pancreatitis, distended gallbladder. ASSESSMENT: This is a 59-year-old gentleman with history of diabetes, hypertension, and colon cancer, status post colostomy, who comes in with nausea, vomiting, and abdominal pain and after a fall, and is found to have, 1. Pancreatitis. 2. Diabetes. 3. Hypertension. 4. History of colon cancer. 5. Gram-negative sepsis. PLAN: 1. Discontinue Levaquin. 2. We will start the patient on Zosyn. 3. We would suggest a GI evaluation. I would like to thank Dr. Ortega for this consultation. Mario Sawyer M.D. DR: DANETTE JOB#: [id number] CC:
[2019-10-11] MEDS: HYDROmorphone 1mg/ml Carpuject IVP PRN ×2 (15:16→20:27)
--- NOTE | 2019-10-11 15:45 | Diagnostic Imaging Report ---
Indication: Cough Technique: One view of the chest Comparison: none Findings: There is a right chest port catheter in good position. There is some atelectasis at the left lung base. The heart size is upper limits normal. There is some pleural fluid on the left. Impression: Left basilar atelectasis and small pleural effusion
[2019-10-11] MEDS: NovoLOG Insulin Flexpen SUBQ SCH (16:30)
--- NOTE | 2019-10-11 18:45 | History and Physical Report ---
DATE OF ADMISSION: 10/10/2019 HISTORY OF PRESENT ILLNESS: This is a 59-year-old male, who came to the emergency room for having recurrent nausea, vomiting, and abdominal pain. Past medical history is significant for colon CA and abdominal pain with nausea and vomiting for the last 2 to 3 days. The patient is currently feeling a lot better. Abdominal pain is improved. The patient is physically in the bed and looks pretty good. PAST MEDICAL HISTORY: Colon CA for the last 2 to 3 years. He is also diabetic. He has history of . MEDICATIONS: He is taking sliding scale insulin, hydromorphone, Levaquin, Protonix, Zosyn, Lipitor, metformin, and Flomax. MEDICAL CONDITIONS: He has diabetes, hypertension, hyperlipidemia, BPH, history of colon CA 2 years ago and finished chemotherapy. The patient also has a colostomy bag at that time and was closed. ALLERGIES: NKA. FAMILY HISTORY: Noncontributory. SOCIAL HISTORY: Lives at home. PHYSICAL EXAMINATION: GENERAL: This is a middle-aged Amharic male, who is currently in bed. VITAL SIGNS: Blood pressure 142/76, pulse 62, respirations 20, temperature is 97. HEENT: NAD. CHEST: Bilateral crackles. CARDIOVASCULAR: Regular rhythm. No gallop. No murmur. ABDOMEN: Soft. Positive bowel sounds. Nontender. EXTREMITIES: No CCE. NEUROLOGIC: The patient has no focal deficit GENITOURINARY: Deferred. LABORATORY DATA: White counts are 11, hemoglobin 15, hematocrit 42, platelets are 174,000. Chemistry panel, sodium 139, potassium 3.8, BUN 24, creatinine 1.1. Amylase 4350, lipase . ASSESSMENT AND PLAN: 1. Acute pancreatitis. 2. Recurrent nausea and vomiting. 3. Anemia. 4. History of colon CA. 5. Hyperlipidemia. 6. Diabetes. PLAN: We will admit on medical floor. NPO, IV fluid, IV antibiotics. Continue bronchodilator treatment. The patient's blood cultures are positive. ID consult was called. Also, GI is on the case. Ko Ortega M.D. DR: RYAN JOB#: [id number] CC:
[2019-10-12] VITALS: BP 123/80
[2019-10-12] MEDS: HYDROmorphone 1mg/ml Carpuject IVP PRN ×4 (02:44→21:10)
[2019-10-12 04:00] VITALS: BP 132/80
[2019-10-12] MEDS: Piperacillin/Tazobactam 3.375 GM in NS 110 ML IVPB SCH ×3 (05:16→21:11)
[2019-10-12] MEDS: NovoLOG Insulin Flexpen SUBQ SCH ×2 (05:56→16:30)
[2019-10-12 07:11] LABS: HEMATOCRIT 40.1 % (42.0-52.0); HEMOGLOBIN 13.7 G/DL (14.2-18.0); MEAN CORPUSCULAR VOLUME 94 FL (80-99); PLATELET COUNT 120 K/UL (150-450); RED BLOOD COUNT 4.28 M/UL (4.70-6.10); RED CELL DISTRIBUTION WIDTH 11.3 % (11.6-14.8); WHITE BLOOD COUNT 9.7 K/UL (4.8-10.8)
[2019-10-12 07:28] LABS: ALANINE AMINOTRANSFERASE 381 U/L (12-78); ALBUMIN 2.6 G/DL (3.4-5.0); ALBUMIN/GLOBULIN RATIO 0.8 (1.0-2.7); ALKALINE PHOSPHATASE 128 U/L (46-116); ANION GAP 8 mmol/L (5-15); ASPARTATE AMINO TRANSFERASE 255 U/L (15-37); BILIRUBIN,TOTAL 1.3 MG/DL (0.2-1.0); BLOOD UREA NITROGEN 15 mg/dL (7-18); CARBON DIOXIDE 24 MMOL/L (21-32); CHLORIDE 103 MMOL/L (98-107); CHOLESTEROL 115 MG/DL (< 200); CREATININE 0.8 MG/DL (0.55-1.30); HDL CHOLESTEROL 40 MG/DL (40-60); POTASSIUM 3.8 MMOL/L (3.5-5.1); SODIUM 135 MMOL/L (136-145); TRIGLYCERIDES 105 MG/DL (30-150)
[2019-10-12 07:29] LABS: AMYLASE 1136 U/L (25-115)
[2019-10-12 07:31] LABS: BILIRUBIN,DIRECT 0.5 MG/DL (0.0-0.3)
[2019-10-12 08:00] VITALS: BP 140/82
[2019-10-12] MEDS: Pantoprazole Inj IVP SCH (09:10)
--- NOTE | 2019-10-12 10:07 | General Progress Note ---
Assessment/Plan Assessment/Plan: pancreatitis elevated LFTS h/o colon CA ivf npo pain meds MRCP>> reviewed ercp plans on hold fu surg recs Subjective ROS Limited/Unobtainable: Yes Allergies: Coded Allergies: No Known Allergies (Unverified , 10/10/19) Objective Last 24 Hour Vital Signs Date Time Temp Pulse Resp B/P (MAP) Pulse Ox O2 Delivery O2 Flow Rate FiO2 10/12/19 08:00 98.4 90 21 140/82 (101) 98 10/12/19 04:00 98.6 70 18 132/80 (97) 97 10/12/19 03:14 98.3 10/12/19 00:00 98.3 88 18 123/80 (94) 95 10/11/19 21:00 Nasal Cannula 2.0 10/11/19 20:00 99.1 78 18 129/77 (94) 96 10/11/19 16:00 98.2 77 18 138/79 (98) 99 10/11/19 12:00 70 10/11/19 12:00 Nasal Cannula 2.0 10/11/19 12:00 97.2 72 20 132/72 (92) 96 10/11/19 12:00 2.0 Intake and Output 10/11/19 10/12/19 19:00 07:00 Intake Total 830.0 ml 937.5 ml Balance 830.0 ml 937.5 ml Intake Oral 320 ml IV Total 510.0 ml 937.5 ml # Voids 4 Laboratory Tests 10/11/19 17:01: POC Whole Blood Glucose 134H 10/12/19 04:45: White Blood Count 9.7, Red Blood Count 4.28L, Hemoglobin 13.7L, Hematocrit 40.1L , Mean Corpuscular Volume 94, Mean Corpuscular Hemoglobin 31.9H, Mean Corpuscular Hemoglobin Concent 34.1, Red Cell Distribution Width 11.3L, Platelet Count 120L, Mean Platelet Volume 8.5, Neutrophils (%) (Auto) , Lymphocytes (%) (Auto) , Monocytes (%) (Auto) , Eosinophils (%) (Auto) , Basophils (%) (Auto) , Differential Total Cells Counted 100, Neutrophils % ( Manual) 79H, Lymphocytes % (Manual) 12L, Monocytes % (Manual) 2, Eosinophils % ( Manual) 0, Basophils % (Manual) 0, Band Neutrophils 7, Platelet Estimate DecreasedL, Platelet Morphology Normal, Red Blood Cell Morphology Normal, Sodium Level 135L, Potassium Level 3.8, Chloride Level 103, Carbon Dioxide Level 24, Anion Gap 8, Blood Urea Nitrogen 15, Creatinine 0.8, Estimat Glomerular Filtration Rate > 60, Glucose Level 111H, Hemoglobin A1c 6.0, Calcium Level 8.0L, Total Bilirubin 1.3H, Direct Bilirubin 0.5H, Aspartate Amino Transf (AST/SGOT) 255H, Alanine Aminotransferase (ALT/SGPT) 381H, Alkaline Phosphatase 128H, Total Protein 6.0L, Albumin 2.6L, Globulin 3.4, Albumin/Globulin Ratio 0.8L, Triglycerides Level 105, Cholesterol Level 115, LDL Cholesterol 50, HDL Cholesterol 40, Cholesterol/HDL Ratio 2.9L, Amylase Level 1136*H, Lipase > 2000H Height (Feet): 5 Height (Inches): 8.00 Weight (Pounds): 73 General Appearance: no apparent distress EENT: normal ENT inspection Neck: supple Cardiovascular: normal rate Respiratory/Chest: decreased breath sounds Abdomen: normal bowel sounds, non tender, soft Extremities: non-tender Ken Justin MD Oct 12, 2019 10:07
--- NOTE | 2019-10-12 10:59 | Infectious Diseases Prog Note ---
Assessment/Plan Assessment/Plan antibiotics : zosyn, levoquin A 1. gram negative sepsis 2. acute pancreatitis 3. diabetes mellitus 4. hypertension 5. colon cancer P 1. continue zosyn 2. d/c levoquin 3. will follow up cultures Subjective Constitutional: Denies: fever, chills Respiratory: Denies: shortness of breath, dry cough Gastrointestinal/Abdominal: Denies: nausea, vomiting, diarrhea Musculoskeletal: Reports: pain Allergies: Coded Allergies: No Known Allergies (Unverified , 10/10/19) Objective Last 24 Hour Vital Signs Date Time Temp Pulse Resp B/P (MAP) Pulse Ox O2 Delivery O2 Flow Rate FiO2 10/12/19 09:00 Nasal Cannula 2.0 10/12/19 08:00 98.4 90 21 140/82 (101) 98 10/12/19 04:00 98.6 70 18 132/80 (97) 97 10/12/19 03:14 98.3 10/12/19 00:00 98.3 88 18 123/80 (94) 95 10/11/19 21:00 Nasal Cannula 2.0 10/11/19 20:00 99.1 78 18 129/77 (94) 96 10/11/19 16:00 98.2 77 18 138/79 (98) 99 10/11/19 12:00 70 10/11/19 12:00 Nasal Cannula 2.0 10/11/19 12:00 97.2 72 20 132/72 (92) 96 10/11/19 12:00 2.0 Height (Feet): 5 Height (Inches): 8.00 Weight (Pounds): 73 Respiratory/Chest: lungs clear Cardiovascular: normal rate, regular rhythm, no gallop/murmur Abdomen: soft, non tender Extremities: other - right subclavian catheter, left hand echhymoses Microbiology Date/Time Source Procedure Growth Status 10/10/19 19:00 Blood Blood Culture - Preliminary Resulted 10/10/19 18:45 Blood Blood Culture - Preliminary Gram Negative Bacillus 1 Resulted 10/10/19 18:52 Nasopharynx SARS-CoV-2 RdRp Gene Assay - Final Complete Laboratory Tests Test 10/11/19 17:01 10/12/19 04:45 POC Whole Blood Glucose 134 MG/DL (74-106) H White Blood Count 9.7 K/UL (4.8-10.8) Red Blood Count 4.28 M/UL (4.70-6.10) L Hemoglobin 13.7 G/DL (14.2-18.0) L Hematocrit 40.1 % (42.0-52.0) L Mean Corpuscular Volume 94 FL (80-99) Mean Corpuscular Hemoglobin 31.9 PG (27.0-31.0) H Mean Corpuscular Hemoglobin Concent 34.1 G/DL (32.0-36.0) Red Cell Distribution Width 11.3 % (11.6-14.8) L Platelet Count 120 K/UL (150-450) L Mean Platelet Volume 8.5 FL (6.5-10.1) Neutrophils (%) (Auto) % (45.0-75.0) Lymphocytes (%) (Auto) % (20.0-45.0) Monocytes (%) (Auto) % (1.0-10.0) Eosinophils (%) (Auto) % (0.0-3.0) Basophils (%) (Auto) % (0.0-2.0) Differential Total Cells Counted 100 Neutrophils % (Manual) 79 % (45-75) H Lymphocytes % (Manual) 12 % (20-45) L Monocytes % (Manual) 2 % (1-10) Eosinophils % (Manual) 0 % (0-3) Basophils % (Manual) 0 % (0-2) Band Neutrophils 7 % (0-8) Platelet Estimate Decreased L Platelet Morphology Normal Red Blood Cell Morphology Normal Sodium Level 135 MMOL/L (136-145) L Potassium Level 3.8 MMOL/L (3.5-5.1) Chloride Level 103 MMOL/L (98-107) Carbon Dioxide Level 24 MMOL/L (21-32) Anion Gap 8 mmol/L (5-15) Blood Urea Nitrogen 15 mg/dL (7-18) Creatinine 0.8 MG/DL (0.55-1.30) Estimat Glomerular Filtration Rate > 60 mL/min (>60) Glucose Level 111 MG/DL (74-106) H Hemoglobin A1c 6.0 % (4.3-6.0) Calcium Level 8.0 MG/DL (8.5-10.1) L Total Bilirubin 1.3 MG/DL (0.2-1.0) H Direct Bilirubin 0.5 MG/DL (0.0-0.3) H Aspartate Amino Transf (AST/SGOT) 255 U/L (15-37) H Alanine Aminotransferase (ALT/SGPT) 381 U/L (12-78) H Alkaline Phosphatase 128 U/L (46-116) H Total Protein 6.0 G/DL (6.4-8.2) L Albumin 2.6 G/DL (3.4-5.0) L Globulin 3.4 g/dL Albumin/Globulin Ratio 0.8 (1.0-2.7) L Triglycerides Level 105 MG/DL (30-150) Cholesterol Level 115 MG/DL (< 200) LDL Cholesterol 50 mg/dL (<100) HDL Cholesterol 40 MG/DL (40-60) Cholesterol/HDL Ratio 2.9 (3.3-4.4) L Amylase Level 1136 U/L (25-115) *H Lipase > 2000 U/L (73-393) H Current Medications Medications (Trade) Dose Ordered Sig/Freida Route PRN Reason Start Time Stop Time Status Last Admin Dose Admin Dextrose (Dextrose 50%) 25 ml Q30M PRN IV Hypoglycemia 10/11/19 14:00 01/09/20 10:59 Dextrose (Dextrose 50%) 50 ml Q30M PRN IV Hypoglycemia 10/11/19 14:00 01/09/20 10:59 Hydromorphone HCl (Dilaudid) 1 mg Q4H PRN IVP For Pain 10/11/19 14:00 10/18/19 13:59 10/12/19 09:16 Insulin Aspart (NovoLOG) BIAC SUBQ 10/11/19 16:30 01/09/20 11:29 Levofloxacin 100 ml @ 100 mls/hr Q24H IVPB 10/11/19 21:00 10/18/19 20:59 10/11/19 20:17 Ondansetron HCl (Zofran) 4 mg Q4H PRN IVP Nausea & Vomiting 10/11/19 17:30 11/09/19 17:29 Pantoprazole (Protonix) 40 mg DAILY IVP 10/12/19 09:00 11/10/19 08:59 10/12/19 09:10 Piperacillin Sod/ Tazobactam Sod 3.375 gm/Sodium Chloride 110 ml @ 27.5 mls/hr EVERY 8 HOURS IVPB 10/11/19 14:00 10/16/19 13:59 10/12/19 05:16 Sodium Chloride 1,000 ml @ 100 mls/hr Q10H IV 10/11/19 14:00 11/09/19 22:59 10/12/19 09:13 Mario Sawyer MD Oct 12, 2019 10:59
[2019-10-12 12:00] VITALS: BP 126/72
[2019-10-12] MEDS ORDERED: Acetaminophen 500mg (ES) tab ORAL PRN ×2 (14:30)
[2019-10-12 16:00] VITALS: BP 110/67
--- NOTE | 2019-10-12 17:35 | Surgery Progress Note ---
Surgery Progress Note Subjective Additional Comments Still with abdominal pain but slowly improving. No nausea vomiting having fevers. Labs improved. Objective Last 24 Hour Vital Signs Date Time Temp Pulse Resp B/P (MAP) Pulse Ox O2 Delivery O2 Flow Rate FiO2 10/12/19 16:00 98.6 79 19 110/67 (81) 99 10/12/19 15:07 100.0 10/12/19 14:30 100.0 10/12/19 14:00 100.9 10/12/19 12:00 99.0 86 20 126/72 (90) 98 10/12/19 09:00 Nasal Cannula 2.0 10/12/19 08:00 98.4 90 21 140/82 (101) 98 10/12/19 04:00 98.6 70 18 132/80 (97) 97 10/12/19 03:14 98.3 10/12/19 00:00 98.3 88 18 123/80 (94) 95 10/11/19 21:00 Nasal Cannula 2.0 10/11/19 20:00 99.1 78 18 129/77 (94) 96 I&O Intake and Output 10/11/19 10/12/19 19:00 07:00 Intake Total 830.0 ml 937.5 ml Balance 830.0 ml 937.5 ml Intake Oral 320 ml IV Total 510.0 ml 937.5 ml # Voids 4 Cardiovascular: RSR Respiratory: clear Abdomen: soft, distended, tenderness, decreased bowel sounds Extremities: no edema, no tenderness, no cyanosis Laboratory Tests Test 10/12/19 04:45 White Blood Count 9.7 K/UL (4.8-10.8) Red Blood Count 4.28 M/UL (4.70-6.10) L Hemoglobin 13.7 G/DL (14.2-18.0) L Hematocrit 40.1 % (42.0-52.0) L Mean Corpuscular Volume 94 FL (80-99) Mean Corpuscular Hemoglobin 31.9 PG (27.0-31.0) H Mean Corpuscular Hemoglobin Concent 34.1 G/DL (32.0-36.0) Red Cell Distribution Width 11.3 % (11.6-14.8) L Platelet Count 120 K/UL (150-450) L Mean Platelet Volume 8.5 FL (6.5-10.1) Neutrophils (%) (Auto) % (45.0-75.0) Lymphocytes (%) (Auto) % (20.0-45.0) Monocytes (%) (Auto) % (1.0-10.0) Eosinophils (%) (Auto) % (0.0-3.0) Basophils (%) (Auto) % (0.0-2.0) Differential Total Cells Counted 100 Neutrophils % (Manual) 79 % (45-75) H Lymphocytes % (Manual) 12 % (20-45) L Monocytes % (Manual) 2 % (1-10) Eosinophils % (Manual) 0 % (0-3) Basophils % (Manual) 0 % (0-2) Band Neutrophils 7 % (0-8) Platelet Estimate Decreased L Platelet Morphology Normal Red Blood Cell Morphology Normal Sodium Level 135 MMOL/L (136-145) L Potassium Level 3.8 MMOL/L (3.5-5.1) Chloride Level 103 MMOL/L (98-107) Carbon Dioxide Level 24 MMOL/L (21-32) Anion Gap 8 mmol/L (5-15) Blood Urea Nitrogen 15 mg/dL (7-18) Creatinine 0.8 MG/DL (0.55-1.30) Estimat Glomerular Filtration Rate > 60 mL/min (>60) Glucose Level 111 MG/DL (74-106) H Hemoglobin A1c 6.0 % (4.3-6.0) Calcium Level 8.0 MG/DL (8.5-10.1) L Total Bilirubin 1.3 MG/DL (0.2-1.0) H Direct Bilirubin 0.5 MG/DL (0.0-0.3) H Aspartate Amino Transf (AST/SGOT) 255 U/L (15-37) H Alanine Aminotransferase (ALT/SGPT) 381 U/L (12-78) H Alkaline Phosphatase 128 U/L (46-116) H Total Protein 6.0 G/DL (6.4-8.2) L Albumin 2.6 G/DL (3.4-5.0) L Globulin 3.4 g/dL Albumin/Globulin Ratio 0.8 (1.0-2.7) L Triglycerides Level 105 MG/DL (30-150) Cholesterol Level 115 MG/DL (< 200) LDL Cholesterol 50 mg/dL (<100) HDL Cholesterol 40 MG/DL (40-60) Cholesterol/HDL Ratio 2.9 (3.3-4.4) L Amylase Level 1136 U/L (25-115) *H Lipase > 2000 U/L (73-393) H Plan Problems: (1) Colon cancer (2) Pneumonia (3) Severe sepsis (4) Gallstone pancreatitis Assessment & Plan: 59-year-old male history of colon cancer chemo therapy resection doing well to recently developed arm pain nausea and vomiting. Identified to have severe acute gallstone pancreatitis. Abdomen tender but not in acute abdomen with peritonitis Currently no nausea vomiting leukocytosis lactic acidosis improving with resuscitation N.p.o. IV fluids Pending imaging studies Trend labs We will follow with recommendations thank you for let me participate in patient' s care mild subsegmental basilar atelectasis, left more pronounced than right. No acute basilar infiltrate. Extensive peripancreatic edema system with severe, acute pancreatitis. No clear focal glandular necrosis. No loculated fluid collection. No hemorrhage or gas. Mild extrahepatic biliary dilation. Enhancing gallbladder wall. No radiopaque gallstone. Recommend correlation for elevated biliary markers in addition to pancreatic enzymes. Renal cysts and hypodensities that are too small to characterize. No hydronephrosis. Transverse colonic resection with intact anastomosis. No bowel obstruction. The appendix is unremarkable. Aortoiliac atherosclerosis without aneurysm. No acute fracture. Mild thoracolumbar spondylosis. IMPRESSION: Acute pancreatitis. Distended gallbladder and CBD. No radiopaque gallstone, but recommend clinical/laboratory correlation. Incidental findings as above. Gallbladder demonstrates filling defects consistent with gallstones. The gallbladder wall is mildly thickened and mildly edematous. The common hepatic duct is mildly ectatic, measuring up to 9 mm in diameter. The common bile duct is normal in caliber. No intraluminal filling defect or obstructing stone is demonstrated. There is somewhat low insertion of the cystic duct into the common hepatic duct The pancreas is enlarged and edematous, and considerable phlegmon is seen within upper abdominal fat, similar in distribution to that described on prior CT scan. No discrete walled off fluid collection demonstrated. The pancreatic duct is normal in caliber. No focal liver lesion demonstrated. The spleen, adrenals are unremarkable. The kidneys demonstrate cysts bilaterally. The included upper pelvis appears unremarkable. Impression: Evidence of acute pancreatitis, also described on recent CT scan. No discrete fluid collection to suggest abscess or early pseudocyst formation Cholelithiasis. Mild gallbladder wall thickening. This could be related to the adjacent pancreatic inflammation, or could indicate acute cholecystitis. Correlate with clinical findings, consider nuclear medicine hepatobiliary scan if clinically indicated Ectatic common hepatic duct demonstrated, significance/etiology uncertain. Normal caliber common bile duct. No definite downstream obstructive lesion Incidental finding of bilateral renal cysts Yury Baxter Oct 12, 2019 17:35
[2019-10-12 20:00] VITALS: BP 114/83
--- NOTE | 2019-10-12 20:30 | Progress Note ---
DATE: 10/12/2019 SUBJECTIVE: This is a 59-year-old male, currently came with colon cancer, pneumonia, severe sepsis, gallstone pancreatitis. Patient is still having abdominal pain, but abdomen is getting softer. Tolerating ice chips. OBJECTIVE: VITAL SIGNS: Blood pressure is 126/72, pulse 86, respirations 20, temperature 99. HEENT: NAD. CHEST: Bilaterally clear. CARDIOVASCULAR: Regular rhythm. No gallop. No murmur. ABDOMEN: Soft. Mild tenderness. EXTREMITIES: No CCE. NEUROLOGICAL: Generalized weakness. LABORATORY DATA: White count 9.7, hemoglobin 14, hematocrit 41, platelets are normal. His chemistry panel, sodium 135, potassium 3.8. His amylase was 1936 yesterday. Lipase 2000. Microbiology is showing gram-negative bacilli. ASSESSMENT: 1. Acute pancreatitis. 2. History of colon CA. 3. Weakness. PLAN: Patient is currently on antibiotics. ID is on consult. Continue NPO, IV fluids, PPIs. Discontinue Levaquin. Added Zosyn. Ko Ortega M.D. DR: DAVID JOB#: [id number] CC:
[2019-10-13] VITALS: BP 149/79
[2019-10-13] MEDS: HYDROmorphone 1mg/ml Carpuject IVP PRN ×6 (02:46→20:04)
[2019-10-13 04:00] VITALS: BP 150/80
[2019-10-13] MEDS: Piperacillin/Tazobactam 3.375 GM in NS 110 ML IVPB SCH ×3 (06:04→20:04)
[2019-10-13] MEDS: NovoLOG Insulin Flexpen SUBQ SCH ×2 (06:09→16:03)
[2019-10-13 06:27] LABS: BASOPHILS % (AUTO) 0.2 % (0.0-2.0); HEMATOCRIT 36.8 % (42.0-52.0); HEMOGLOBIN 12.5 G/DL (14.2-18.0); LYMPHOCYTES % (AUTO) 11.4 % (20.0-45.0); MEAN CORPUSCULAR VOLUME 92 FL (80-99); MONOCYTES % (AUTO) 3.6 % (1.0-10.0); NEUTROPHILS % (AUTO) 84.7 % (45.0-75.0); PLATELET COUNT 130 K/UL (150-450); RED CELL DISTRIBUTION WIDTH 10.9 % (11.6-14.8); WHITE BLOOD COUNT 9.9 K/UL (4.8-10.8)
[2019-10-13 06:52] LABS: ALANINE AMINOTRANSFERASE 199 U/L (12-78); ALBUMIN 2.6 G/DL (3.4-5.0); ALBUMIN/GLOBULIN RATIO 0.8 (1.0-2.7); ALKALINE PHOSPHATASE 88 U/L (46-116); ANION GAP 9 mmol/L (5-15); ASPARTATE AMINO TRANSFERASE 95 U/L (15-37); BLOOD UREA NITROGEN 8 mg/dL (7-18); CALCIUM 7.6 MG/DL (8.5-10.1); CARBON DIOXIDE 24 MMOL/L (21-32); CHLORIDE 102 MMOL/L (98-107); CREATININE 0.7 MG/DL (0.55-1.30); POTASSIUM 3.3 MMOL/L (3.5-5.1); SODIUM 135 MMOL/L (136-145)
--- NOTE | 2019-10-13 07:29 | Consultation ---
DATE OF CONSULTATION: 10/12/2019 ORTHOPEDIC CONSULTATION CONSULTING PHYSICIAN: Winston Sahu MD REFERRING PHYSICIAN: Evert Ortega MD CHIEF COMPLAINT: Left hand pain. HISTORY OF PRESENT ILLNESS: Patient is a pleasant gentleman who presents with left hand pain showed a possible fracture of the hand; therefore, orthopedic consultation obtained for further care and recommendation. PAST MEDICAL HISTORY: Per the intake chart. SURGICAL HISTORY: Per the intake chart. MEDICATIONS: Per the intake chart. PHYSICAL EXAMINATION: EXTREMITIES: soft compression wrap of the left hand. There is a some swelling, ecchymosis. Skin is intact. IMAGING STUDY: Showed nondisplaced base of the fourth metacarpal fracture. DISCUSSION: What I recommend is it will take up to 6 weeks for the fracture to heal. I placed him in the wrist extension brace for comfort. He can begin active flexion extension activities of the left hand involved as outpatient. In 4 to 6 weeks, we will repeat imaging studies and physical therapy. Winston Sahu M.D. DR: DAVID JOB#: [id number] CC: Ko Ortega M.D.; Fax#: [phone] MTDD
[2019-10-13 07:42] LABS: AMYLASE 511 U/L (25-115)
[2019-10-13 08:00] VITALS: BP 145/88
[2019-10-13] MEDS: Pantoprazole Inj IVP SCH (08:35)
[2019-10-13 12:00] VITALS: BP 148/87
--- NOTE | 2019-10-13 12:33 | General Progress Note ---
Assessment/Plan Assessment/Plan: pancreatitis elevated LFTS h/o colon CA ivf start clears pain meds MRCP>> reviewed ercp plans on hold fu surg recs Subjective ROS Limited/Unobtainable: Yes Allergies: Coded Allergies: No Known Allergies (Unverified , 10/10/19) Objective Last 24 Hour Vital Signs Date Time Temp Pulse Resp B/P (MAP) Pulse Ox O2 Delivery O2 Flow Rate FiO2 10/13/19 09:00 Nasal Cannula 2.0 10/13/19 08:00 99.1 103 20 145/88 (107) 96 10/13/19 04:00 98.0 102 19 150/80 (103) 96 10/13/19 00:00 99.5 95 19 149/79 (102) 98 10/12/19 21:00 Nasal Cannula 2.0 10/12/19 20:00 97.8 84 18 114/83 (93) 98 10/12/19 16:00 98.6 79 19 110/67 (81) 99 10/12/19 15:07 100.0 10/12/19 14:30 100.0 10/12/19 14:00 100.9 Intake and Output 10/12/19 10/13/19 19:00 07:00 Intake Total 1342.5 ml 1760.0 ml Output Total 800 ml 500 ml Balance 542.5 ml 1260.0 ml Intake Oral 300 ml IV Total 1042.5 ml 1760.0 ml Output Urine Total 800 ml 500 ml Laboratory Tests 10/13/19 06:00: White Blood Count 9.9, Red Blood Count 4.00L, Hemoglobin 12.5L, Hematocrit 36.8L , Mean Corpuscular Volume 92, Mean Corpuscular Hemoglobin 31.4H, Mean Corpuscular Hemoglobin Concent 34.1, Red Cell Distribution Width 10.9L, Platelet Count 130L, Mean Platelet Volume 7.7, Neutrophils (%) (Auto) 84.7H, Lymphocytes (%) (Auto) 11.4L, Monocytes (%) (Auto) 3.6, Eosinophils (%) (Auto) 0.0, Basophils (%) (Auto) 0.2, Sodium Level 135L, Potassium Level 3.3L, Chloride Level 102, Carbon Dioxide Level 24, Anion Gap 9, Blood Urea Nitrogen 8 , Creatinine 0.7, Estimat Glomerular Filtration Rate > 60, Glucose Level 102, Calcium Level 7.6L, Total Bilirubin 1.0, Aspartate Amino Transf (AST/SGOT) 95H, Alanine Aminotransferase (ALT/SGPT) 199H, Alkaline Phosphatase 88, Total Protein 6.0L, Albumin 2.6L, Globulin 3.4, Albumin/Globulin Ratio 0.8L, Amylase Level 511*H, Lipase 1485H Height (Feet): 5 Height (Inches): 8.00 Weight (Pounds): 73 General Appearance: no apparent distress EENT: normal ENT inspection Neck: supple Cardiovascular: normal rate Respiratory/Chest: decreased breath sounds Abdomen: normal bowel sounds, non tender, soft Extremities: non-tender Ken Justin MD Oct 13, 2019 12:33
--- NOTE | 2019-10-13 12:46 | Infectious Diseases Prog Note ---
Assessment/Plan Assessment/Plan A 1. E.coli sepsis 2. acute pancreatitis 3. diabetes mellitus 4. hypertension 5. colon cancer P 1. continue Zosyn 2. will follow up cultures Subjective ROS Limited/Unobtainable: No Constitutional: Reports: no symptoms Respiratory: Reports: no symptoms Cardiovascular: Reports: no symptoms Gastrointestinal/Abdominal: Reports: other - generalized pain Genitourinary: Reports: no symptoms Allergies: Coded Allergies: No Known Allergies (Unverified , 10/10/19) Objective Last 24 Hour Vital Signs Date Time Temp Pulse Resp B/P (MAP) Pulse Ox O2 Delivery O2 Flow Rate FiO2 10/13/19 09:00 Nasal Cannula 2.0 10/13/19 08:00 99.1 103 20 145/88 (107) 96 10/13/19 04:00 98.0 102 19 150/80 (103) 96 10/13/19 00:00 99.5 95 19 149/79 (102) 98 10/12/19 21:00 Nasal Cannula 2.0 10/12/19 20:00 97.8 84 18 114/83 (93) 98 10/12/19 16:00 98.6 79 19 110/67 (81) 99 10/12/19 15:07 100.0 10/12/19 14:30 100.0 10/12/19 14:00 100.9 Height (Feet): 5 Height (Inches): 8.00 Weight (Pounds): 73 General Appearance: no acute distress HEENT: mucous membranes moist Respiratory/Chest: lungs clear Cardiovascular: normal rate Abdomen: other - soft, scar of nmidline surgery Extremities: no edema Neurologic/Psychiatric: alert, oriented x 3, responsive Microbiology Date/Time Source Procedure Growth Status 10/10/19 19:00 Blood Blood Culture - Final Escherichia Coli Complete 10/10/19 18:45 Blood Blood Culture - Final Escherichia Coli Complete 10/10/19 18:52 Nasopharynx SARS-CoV-2 RdRp Gene Assay - Final Complete Laboratory Tests Test 10/13/19 06:00 White Blood Count 9.9 K/UL (4.8-10.8) Red Blood Count 4.00 M/UL (4.70-6.10) L Hemoglobin 12.5 G/DL (14.2-18.0) L Hematocrit 36.8 % (42.0-52.0) L Mean Corpuscular Volume 92 FL (80-99) Mean Corpuscular Hemoglobin 31.4 PG (27.0-31.0) H Mean Corpuscular Hemoglobin Concent 34.1 G/DL (32.0-36.0) Red Cell Distribution Width 10.9 % (11.6-14.8) L Platelet Count 130 K/UL (150-450) L Mean Platelet Volume 7.7 FL (6.5-10.1) Neutrophils (%) (Auto) 84.7 % (45.0-75.0) H Lymphocytes (%) (Auto) 11.4 % (20.0-45.0) L Monocytes (%) (Auto) 3.6 % (1.0-10.0) Eosinophils (%) (Auto) 0.0 % (0.0-3.0) Basophils (%) (Auto) 0.2 % (0.0-2.0) Sodium Level 135 MMOL/L (136-145) L Potassium Level 3.3 MMOL/L (3.5-5.1) L Chloride Level 102 MMOL/L (98-107) Carbon Dioxide Level 24 MMOL/L (21-32) Anion Gap 9 mmol/L (5-15) Blood Urea Nitrogen 8 mg/dL (7-18) Creatinine 0.7 MG/DL (0.55-1.30) Estimat Glomerular Filtration Rate > 60 mL/min (>60) Glucose Level 102 MG/DL (74-106) Calcium Level 7.6 MG/DL (8.5-10.1) L Total Bilirubin 1.0 MG/DL (0.2-1.0) Aspartate Amino Transf (AST/SGOT) 95 U/L (15-37) H Alanine Aminotransferase (ALT/SGPT) 199 U/L (12-78) H Alkaline Phosphatase 88 U/L (46-116) Total Protein 6.0 G/DL (6.4-8.2) L Albumin 2.6 G/DL (3.4-5.0) L Globulin 3.4 g/dL Albumin/Globulin Ratio 0.8 (1.0-2.7) L Amylase Level 511 U/L (25-115) *H Lipase 1485 U/L (73-393) H Current Medications Medications (Trade) Dose Ordered Sig/Freida Route PRN Reason Start Time Stop Time Status Last Admin Dose Admin Acetaminophen (Tylenol) 500 mg Q6H PRN ORAL Temp >100.5 10/12/19 14:30 11/11/19 14:29 10/12/19 14:37 Acetaminophen (Tylenol) 500 mg Q6H PRN ORAL Mild Pain (Pain Scale 1-3) 10/12/19 14:30 11/11/19 14:29 Al Hydroxide/Mg Hydroxide (Mylanta) 30 ml Q8H PRN ORAL Gas/abdominal pain 10/12/19 22:00 11/11/19 21:59 10/13/19 08:35 Chlorhexidine Gluconate (Janett-Hex 2%) 1 applic DAILY@2000 TOPIC 10/13/19 20:00 01/11/20 19:59 Dextrose (Dextrose 50%) 25 ml Q30M PRN IV Hypoglycemia 10/11/19 14:00 01/09/20 10:59 Dextrose (Dextrose 50%) 50 ml Q30M PRN IV Hypoglycemia 10/11/19 14:00 01/09/20 10:59 Hydromorphone HCl (Dilaudid) 1 mg Q4H PRN IVP For Pain 10/11/19 14:00 10/18/19 13:59 10/13/19 11:08 Insulin Aspart (NovoLOG) BIAC SUBQ 10/11/19 16:30 01/09/20 11:29 Ondansetron HCl (Zofran) 4 mg Q4H PRN IVP Nausea & Vomiting 10/11/19 17:30 11/09/19 17:29 Pantoprazole (Protonix) 40 mg DAILY IVP 10/12/19 09:00 11/10/19 08:59 10/13/19 08:35 Piperacillin Sod/ Tazobactam Sod 3.375 gm/Sodium Chloride 110 ml @ 27.5 mls/hr EVERY 8 HOURS IVPB 10/11/19 14:00 10/16/19 13:59 10/13/19 06:04 Sodium Chloride 1,000 ml @ 150 mls/hr Q6H40M IV 10/12/19 15:21 11/11/19 15:20 10/13/19 11:07 Cullen Lobo MD Oct 13, 2019 12:45
--- NOTE | 2019-10-13 13:17 | Surgery Progress Note ---
Surgery Progress Note Subjective Symptoms: improved, tolerating diet, pain decreased Objective Last 24 Hour Vital Signs Date Time Temp Pulse Resp B/P (MAP) Pulse Ox O2 Delivery O2 Flow Rate FiO2 10/13/19 12:00 98.2 98 20 148/87 (107) 96 10/13/19 09:00 Nasal Cannula 2.0 10/13/19 08:00 99.1 103 20 145/88 (107) 96 10/13/19 04:00 98.0 102 19 150/80 (103) 96 10/13/19 00:00 99.5 95 19 149/79 (102) 98 10/12/19 21:00 Nasal Cannula 2.0 10/12/19 20:00 97.8 84 18 114/83 (93) 98 10/12/19 16:00 98.6 79 19 110/67 (81) 99 10/12/19 15:07 100.0 10/12/19 14:30 100.0 10/12/19 14:00 100.9 I&O Intake and Output 10/12/19 10/13/19 19:00 07:00 Intake Total 1342.5 ml 1760.0 ml Output Total 800 ml 500 ml Balance 542.5 ml 1260.0 ml Intake Oral 300 ml IV Total 1042.5 ml 1760.0 ml Output Urine Total 800 ml 500 ml Cardiovascular: RSR Respiratory: clear Abdomen: soft, non-tender, present bowel sounds Extremities: no tenderness, no cyanosis Laboratory Tests Test 10/13/19 06:00 White Blood Count 9.9 K/UL (4.8-10.8) Red Blood Count 4.00 M/UL (4.70-6.10) L Hemoglobin 12.5 G/DL (14.2-18.0) L Hematocrit 36.8 % (42.0-52.0) L Mean Corpuscular Volume 92 FL (80-99) Mean Corpuscular Hemoglobin 31.4 PG (27.0-31.0) H Mean Corpuscular Hemoglobin Concent 34.1 G/DL (32.0-36.0) Red Cell Distribution Width 10.9 % (11.6-14.8) L Platelet Count 130 K/UL (150-450) L Mean Platelet Volume 7.7 FL (6.5-10.1) Neutrophils (%) (Auto) 84.7 % (45.0-75.0) H Lymphocytes (%) (Auto) 11.4 % (20.0-45.0) L Monocytes (%) (Auto) 3.6 % (1.0-10.0) Eosinophils (%) (Auto) 0.0 % (0.0-3.0) Basophils (%) (Auto) 0.2 % (0.0-2.0) Sodium Level 135 MMOL/L (136-145) L Potassium Level 3.3 MMOL/L (3.5-5.1) L Chloride Level 102 MMOL/L (98-107) Carbon Dioxide Level 24 MMOL/L (21-32) Anion Gap 9 mmol/L (5-15) Blood Urea Nitrogen 8 mg/dL (7-18) Creatinine 0.7 MG/DL (0.55-1.30) Estimat Glomerular Filtration Rate > 60 mL/min (>60) Glucose Level 102 MG/DL (74-106) Calcium Level 7.6 MG/DL (8.5-10.1) L Total Bilirubin 1.0 MG/DL (0.2-1.0) Aspartate Amino Transf (AST/SGOT) 95 U/L (15-37) H Alanine Aminotransferase (ALT/SGPT) 199 U/L (12-78) H Alkaline Phosphatase 88 U/L (46-116) Total Protein 6.0 G/DL (6.4-8.2) L Albumin 2.6 G/DL (3.4-5.0) L Globulin 3.4 g/dL Albumin/Globulin Ratio 0.8 (1.0-2.7) L Amylase Level 511 U/L (25-115) *H Lipase 1485 U/L (73-393) H Plan Problems: (1) Colon cancer (2) Pneumonia (3) Severe sepsis (4) Gallstone pancreatitis Assessment & Plan: 59-year-old male history of colon cancer chemo therapy resection doing well to recently developed arm pain nausea and vomiting. Identified to have severe acute gallstone pancreatitis. Abdomen tender but not in acute abdomen with peritonitis Currently no nausea vomiting leukocytosis lactic acidosis improving with resuscitation clear liquid trial diet IV fluids MRCP reviewed Trend labs We will follow with recommendations thank you for let me participate in patient' s care mild subsegmental basilar atelectasis, left more pronounced than right. No acute basilar infiltrate. Extensive peripancreatic edema system with severe, acute pancreatitis. No clear focal glandular necrosis. No loculated fluid collection. No hemorrhage or gas. Mild extrahepatic biliary dilation. Enhancing gallbladder wall. No radiopaque gallstone. Recommend correlation for elevated biliary markers in addition to pancreatic enzymes. Renal cysts and hypodensities that are too small to characterize. No hydronephrosis. Transverse colonic resection with intact anastomosis. No bowel obstruction. The appendix is unremarkable. Aortoiliac atherosclerosis without aneurysm. No acute fracture. Mild thoracolumbar spondylosis. IMPRESSION: Acute pancreatitis. Distended gallbladder and CBD. No radiopaque gallstone, but recommend clinical/laboratory correlation. Incidental findings as above. Gallbladder demonstrates filling defects consistent with gallstones. The gallbladder wall is mildly thickened and mildly edematous. The common hepatic duct is mildly ectatic, measuring up to 9 mm in diameter. The common bile duct is normal in caliber. No intraluminal filling defect or obstructing stone is demonstrated. There is somewhat low insertion of the cystic duct into the common hepatic duct The pancreas is enlarged and edematous, and considerable phlegmon is seen within upper abdominal fat, similar in distribution to that described on prior CT scan. No discrete walled off fluid collection demonstrated. The pancreatic duct is normal in caliber. No focal liver lesion demonstrated. The spleen, adrenals are unremarkable. The kidneys demonstrate cysts bilaterally. The included upper pelvis appears unremarkable. Impression: Evidence of acute pancreatitis, also described on recent CT scan. No discrete fluid collection to suggest abscess or early pseudocyst formation Cholelithiasis. Mild gallbladder wall thickening. This could be related to the adjacent pancreatic inflammation, or could indicate acute cholecystitis. Correlate with clinical findings, consider nuclear medicine hepatobiliary scan if clinically indicated Ectatic common hepatic duct demonstrated, significance/etiology uncertain. Normal caliber common bile duct. No definite downstream obstructive lesion Incidental finding of bilateral renal cysts Yury Baxter Oct 13, 2019 13:17
[2019-10-13 16:00] VITALS: BP 147/89
--- NOTE | 2019-10-13 18:59 | Progress Note ---
DATE: 10/13/2019 SUBJECTIVE: This is a 59-year-old male. He is still having nausea, vomiting, abdominal pain. He is physically doing better. OBJECTIVE: VITAL SIGNS: Blood pressure 147/98, pulse 98. ABDOMEN: Milder, soft. Positive bowel sounds. LABORATORY DATA: White counts are normal 9. Chemistry panel, amylase is 511, lipase is 1485. ASSESSMENT: Acute pancreatitis. PLAN: We will keep him NPO. IV antibiotic. Continue pain medication. Continue Zofran. GI is on consult. Ko Ortega M.D. DR: DAVID JOB#: [id number] CC:
[2019-10-13] MEDS: Dyna-Hex 2% Top Sol 2oz TOPIC SCH (20:03)
[2019-10-13 20:30] VITALS: BP 136/79
[2019-10-14] VITALS (7 sets, daily range): BP systolic 134–155; BP diastolic 65–84
[2019-10-14] MEDS: HYDROmorphone 1mg/ml Carpuject IVP PRN ×3 (00:05→08:19)
[2019-10-14] MEDS: Piperacillin/Tazobactam 3.375 GM in NS 110 ML IVPB SCH (03:58)
[2019-10-14] MEDS: NovoLOG Insulin Flexpen SUBQ SCH ×2 (06:07→16:30)
[2019-10-14 06:58] LABS: ALANINE AMINOTRANSFERASE 134 U/L (12-78); ALBUMIN 2.3 G/DL (3.4-5.0); ALBUMIN/GLOBULIN RATIO 0.6 (1.0-2.7); ALKALINE PHOSPHATASE 79 U/L (46-116); AMYLASE 187 U/L (25-115); ANION GAP 11 mmol/L (5-15); ASPARTATE AMINO TRANSFERASE 50 U/L (15-37); BLOOD UREA NITROGEN 7 mg/dL (7-18); CALCIUM 7.8 MG/DL (8.5-10.1); CARBON DIOXIDE 23 MMOL/L (21-32); CHLORIDE 102 MMOL/L (98-107); CREATININE 0.7 MG/DL (0.55-1.30); SODIUM 136 MMOL/L (136-145)
[2019-10-14 07:21] LABS: BASOPHILS % (AUTO) 0.4 % (0.0-2.0); EOSINOPHILS % (AUTO) 0.3 % (0.0-3.0); HEMATOCRIT 32.7 % (42.0-52.0); HEMOGLOBIN 11.6 G/DL (14.2-18.0); LYMPHOCYTES % (AUTO) 10.6 % (20.0-45.0); MEAN CORPUSCULAR VOLUME 90 FL (80-99); MONOCYTES % (AUTO) 5.6 % (1.0-10.0); NEUTROPHILS % (AUTO) 83.1 % (45.0-75.0); PLATELET COUNT 129 K/UL (150-450); RED BLOOD COUNT 3.65 M/UL (4.70-6.10); RED CELL DISTRIBUTION WIDTH 10.7 % (11.6-14.8); WHITE BLOOD COUNT 10.8 K/UL (4.8-10.8)
[2019-10-14] MEDS: Pantoprazole Inj IVP SCH (08:19)
--- NOTE | 2019-10-14 11:02 | Infectious Diseases Prog Note ---
Assessment/Plan Assessment/Plan antibiotics : zosyn A 1. e.coli sepsis 2. acute pancreatitis improving 3. diabetes mellitus 4. hypertension 5. colon cancer P 1. d/c zosyn 2. start and continue ceftriaxone 5 more days 3. will follow up cultures Subjective Constitutional: Denies: fever, chills Respiratory: Denies: shortness of breath, dry cough Gastrointestinal/Abdominal: Reports: nausea; Denies: vomiting, diarrhea Musculoskeletal: Reports: pain Allergies: Coded Allergies: No Known Allergies (Unverified , 10/10/19) Objective Last 24 Hour Vital Signs Date Time Temp Pulse Resp B/P (MAP) Pulse Ox O2 Delivery O2 Flow Rate FiO2 10/14/19 08:00 98.4 82 20 152/76 (101) 92 10/14/19 04:29 97.0 10/14/19 04:08 97.0 88 18 139/78 (98) 97 10/14/19 00:29 97.9 91 22 134/65 (88) 90 10/13/19 20:42 Nasal Cannula 2.0 10/13/19 20:30 98.4 91 22 136/79 (98) 94 10/13/19 16:00 98.2 98 20 147/89 (108) 95 10/13/19 12:00 98.2 98 20 148/87 (107) 96 Height (Feet): 5 Height (Inches): 8.00 Weight (Pounds): 73 Respiratory/Chest: lungs clear Cardiovascular: normal rate, regular rhythm, no gallop/murmur Abdomen: tender Extremities: no edema, other - left arm ecchymoses, right subclavian catheter Laboratory Tests Test 10/14/19 05:00 White Blood Count 10.8 K/UL (4.8-10.8) Red Blood Count 3.65 M/UL (4.70-6.10) L Hemoglobin 11.6 G/DL (14.2-18.0) L Hematocrit 32.7 % (42.0-52.0) L Mean Corpuscular Volume 90 FL (80-99) Mean Corpuscular Hemoglobin 31.9 PG (27.0-31.0) H Mean Corpuscular Hemoglobin Concent 35.6 G/DL (32.0-36.0) Red Cell Distribution Width 10.7 % (11.6-14.8) L Platelet Count 129 K/UL (150-450) L Mean Platelet Volume 6.2 FL (6.5-10.1) L Neutrophils (%) (Auto) 83.1 % (45.0-75.0) H Lymphocytes (%) (Auto) 10.6 % (20.0-45.0) L Monocytes (%) (Auto) 5.6 % (1.0-10.0) Eosinophils (%) (Auto) 0.3 % (0.0-3.0) Basophils (%) (Auto) 0.4 % (0.0-2.0) Sodium Level 136 MMOL/L (136-145) Potassium Level 3.0 MMOL/L (3.5-5.1) L Chloride Level 102 MMOL/L (98-107) Carbon Dioxide Level 23 MMOL/L (21-32) Anion Gap 11 mmol/L (5-15) Blood Urea Nitrogen 7 mg/dL (7-18) Creatinine 0.7 MG/DL (0.55-1.30) Estimat Glomerular Filtration Rate > 60 mL/min (>60) Glucose Level 111 MG/DL (74-106) H Calcium Level 7.8 MG/DL (8.5-10.1) L Total Bilirubin 1.0 MG/DL (0.2-1.0) Aspartate Amino Transf (AST/SGOT) 50 U/L (15-37) H Alanine Aminotransferase (ALT/SGPT) 134 U/L (12-78) H Alkaline Phosphatase 79 U/L (46-116) Total Protein 6.0 G/DL (6.4-8.2) L Albumin 2.3 G/DL (3.4-5.0) L Globulin 3.7 g/dL Albumin/Globulin Ratio 0.6 (1.0-2.7) L Amylase Level 187 U/L (25-115) H Lipase 497 U/L (73-393) H Current Medications Medications (Trade) Dose Ordered Sig/Freida Route PRN Reason Start Time Stop Time Status Last Admin Dose Admin Acetaminophen (Tylenol) 500 mg Q6H PRN ORAL Temp >100.5 10/12/19 14:30 11/11/19 14:29 10/12/19 14:37 Acetaminophen (Tylenol) 500 mg Q6H PRN ORAL Mild Pain (Pain Scale 1-3) 10/12/19 14:30 11/11/19 14:29 Al Hydroxide/Mg Hydroxide (Mylanta) 30 ml Q8H PRN ORAL Gas/abdominal pain 10/12/19 22:00 11/11/19 21:59 10/13/19 08:35 Bisacodyl (Dulcolax) 10 mg DAILYPRN PRN RECTAL Constipation 10/14/19 09:00 01/12/20 08:59 10/14/19 09:22 Chlorhexidine Gluconate (Janett-Hex 2%) 1 applic DAILY@2000 TOPIC 10/13/19 20:00 01/11/20 19:59 10/13/19 20:03 Dextrose (Dextrose 50%) 25 ml Q30M PRN IV Hypoglycemia 10/11/19 14:00 01/09/20 10:59 Dextrose (Dextrose 50%) 50 ml Q30M PRN IV Hypoglycemia 10/11/19 14:00 01/09/20 10:59 Hydromorphone HCl (Dilaudid) 1 mg Q4H PRN IVP For Pain 10/11/19 14:00 10/18/19 13:59 10/14/19 08:19 Insulin Aspart (NovoLOG) BIAC SUBQ 10/11/19 16:30 01/09/20 11:29 Ondansetron HCl (Zofran) 4 mg Q4H PRN IVP Nausea & Vomiting 10/11/19 17:30 11/09/19 17:29 10/14/19 08:19 Pantoprazole (Protonix) 40 mg DAILY IVP 10/12/19 09:00 11/10/19 08:59 10/14/19 08:19 Piperacillin Sod/ Tazobactam Sod 3.375 gm/Sodium Chloride 110 ml @ 27.5 mls/hr EVERY 8 HOURS IVPB 10/11/19 14:00 10/16/19 13:59 10/14/19 03:58 Sodium Chloride 1,000 ml @ 150 mls/hr Q6H40M IV 10/12/19 15:21 11/11/19 15:20 10/14/19 05:53 Mario Sawyer MD Oct 14, 2019 11:02
--- NOTE | 2019-10-14 12:21 | General Progress Note ---
Assessment/Plan Assessment/Plan: pancreatitis elevated LFTS h/o colon CA ivf advance diet to full liquid pain meds recommend pain management consult improving LFTS MRCP>> reviewed ercp plans on hold fu surg recs bowel regimen Subjective ROS Limited/Unobtainable: Yes Allergies: Coded Allergies: No Known Allergies (Unverified , 10/10/19) Objective Last 24 Hour Vital Signs Date Time Temp Pulse Resp B/P (MAP) Pulse Ox O2 Delivery O2 Flow Rate FiO2 10/14/19 09:00 Nasal Cannula 2.0 10/14/19 08:00 98.4 82 20 152/76 (101) 92 10/14/19 04:29 97.0 10/14/19 04:08 97.0 88 18 139/78 (98) 97 10/14/19 00:29 97.9 91 22 134/65 (88) 90 10/13/19 20:42 Nasal Cannula 2.0 10/13/19 20:30 98.4 91 22 136/79 (98) 94 10/13/19 16:00 98.2 98 20 147/89 (108) 95 Intake and Output 10/13/19 10/14/19 19:00 07:00 Intake Total 1800 ml 2042.5 ml Output Total 1000 ml Balance 800 ml 2042.5 ml IV Total 1800 ml 1942.5 ml Other 100 ml Output Urine Total 1000 ml # Voids 6 Laboratory Tests 10/14/19 05:00: White Blood Count 10.8, Red Blood Count 3.65L, Hemoglobin 11.6L, Hematocrit 32.7L, Mean Corpuscular Volume 90, Mean Corpuscular Hemoglobin 31.9H, Mean Corpuscular Hemoglobin Concent 35.6, Red Cell Distribution Width 10.7L, Platelet Count 129L, Mean Platelet Volume 6.2L, Neutrophils (%) (Auto) 83.1H, Lymphocytes (%) (Auto) 10.6L, Monocytes (%) (Auto) 5.6, Eosinophils (%) (Auto) 0.3, Basophils (%) (Auto) 0.4, Sodium Level 136, Potassium Level 3.0L, Chloride Level 102, Carbon Dioxide Level 23, Anion Gap 11, Blood Urea Nitrogen 7, Creatinine 0.7, Estimat Glomerular Filtration Rate > 60, Glucose Level 111H, Calcium Level 7.8L, Total Bilirubin 1.0, Aspartate Amino Transf (AST/SGOT) 50H, Alanine Aminotransferase (ALT/SGPT) 134H, Alkaline Phosphatase 79, Total Protein 6.0L, Albumin 2.3L, Globulin 3.7, Albumin/Globulin Ratio 0.6L, Amylase Level 187H, Lipase 497H Height (Feet): 5 Height (Inches): 8.00 Weight (Pounds): 73 General Appearance: alert EENT: PERRL/EOMI Neck: normal alignment Cardiovascular: normal rate Respiratory/Chest: decreased breath sounds Abdomen: hypoactive bowel sounds, tender Extremities: non-tender Ken Justin MD Oct 14, 2019 12:21
[2019-10-14] MEDS ORDERED: cefTRIAXone 1 GM in D5W 55 ML IVPB SCH (13:00)
[2019-10-14] MEDS: Lactulose 20gm/30ml UDC ORAL SCH ×2 (13:00→18:33)
--- NOTE | 2019-10-14 14:43 | Surgery Progress Note ---
Surgery Progress Note Subjective Additional Comments Patient seen examined bedside still complaining of pain but looks much more comfortable. Tolerating diet. No nausea vomiting fever chills. Labs noted leukocytosis resolved H&H stable liver enzymes improved AST ALT improved. Given the severity of patient's acute severe gallstone pancreatitis would recommend cool down prior to cholecystectomy. Patient to have cholecystectomy but given the amount of pancreatic inflammation identified on CT and MRI would recommend allowing inflammation to settle and subside prior to surgical intervention. Patient can follow-up with his primary surgeon who performed multiple abdominal operations for his colon cancer to have procedure done or any surgeon within his network. Advance diet as tolerated. Okay to discharge from surgical standpoint. Pain management. Objective Last 24 Hour Vital Signs Date Time Temp Pulse Resp B/P (MAP) Pulse Ox O2 Delivery O2 Flow Rate FiO2 10/14/19 13:01 99.0 79 20 148/77 (100) 92 10/14/19 12:00 99.0 79 20 148/77 (100) 92 10/14/19 09:00 Nasal Cannula 2.0 10/14/19 08:00 98.4 82 20 152/76 (101) 92 10/14/19 04:29 97.0 10/14/19 04:08 97.0 88 18 139/78 (98) 97 10/14/19 00:29 97.9 91 22 134/65 (88) 90 10/13/19 20:42 Nasal Cannula 2.0 10/13/19 20:30 98.4 91 22 136/79 (98) 94 10/13/19 16:00 98.2 98 20 147/89 (108) 95 I&O Intake and Output 10/13/19 10/14/19 19:00 07:00 Intake Total 1800 ml 2042.5 ml Output Total 1000 ml Balance 800 ml 2042.5 ml IV Total 1800 ml 1942.5 ml Other 100 ml Output Urine Total 1000 ml # Voids 6 Dressing: other Wound: other Drains: other Cardiovascular: RSR Respiratory: decreased breath sounds Abdomen: soft, non-tender, tenderness - minimal , present bowel sounds Extremities: no edema, no tenderness, no cyanosis Laboratory Tests Test 10/14/19 05:00 White Blood Count 10.8 K/UL (4.8-10.8) Red Blood Count 3.65 M/UL (4.70-6.10) L Hemoglobin 11.6 G/DL (14.2-18.0) L Hematocrit 32.7 % (42.0-52.0) L Mean Corpuscular Volume 90 FL (80-99) Mean Corpuscular Hemoglobin 31.9 PG (27.0-31.0) H Mean Corpuscular Hemoglobin Concent 35.6 G/DL (32.0-36.0) Red Cell Distribution Width 10.7 % (11.6-14.8) L Platelet Count 129 K/UL (150-450) L Mean Platelet Volume 6.2 FL (6.5-10.1) L Neutrophils (%) (Auto) 83.1 % (45.0-75.0) H Lymphocytes (%) (Auto) 10.6 % (20.0-45.0) L Monocytes (%) (Auto) 5.6 % (1.0-10.0) Eosinophils (%) (Auto) 0.3 % (0.0-3.0) Basophils (%) (Auto) 0.4 % (0.0-2.0) Sodium Level 136 MMOL/L (136-145) Potassium Level 3.0 MMOL/L (3.5-5.1) L Chloride Level 102 MMOL/L (98-107) Carbon Dioxide Level 23 MMOL/L (21-32) Anion Gap 11 mmol/L (5-15) Blood Urea Nitrogen 7 mg/dL (7-18) Creatinine 0.7 MG/DL (0.55-1.30) Estimat Glomerular Filtration Rate > 60 mL/min (>60) Glucose Level 111 MG/DL (74-106) H Calcium Level 7.8 MG/DL (8.5-10.1) L Total Bilirubin 1.0 MG/DL (0.2-1.0) Aspartate Amino Transf (AST/SGOT) 50 U/L (15-37) H Alanine Aminotransferase (ALT/SGPT) 134 U/L (12-78) H Alkaline Phosphatase 79 U/L (46-116) Total Protein 6.0 G/DL (6.4-8.2) L Albumin 2.3 G/DL (3.4-5.0) L Globulin 3.7 g/dL Albumin/Globulin Ratio 0.6 (1.0-2.7) L Amylase Level 187 U/L (25-115) H Lipase 497 U/L (73-393) H Plan Problems: (1) Colon cancer (2) Pneumonia (3) Severe sepsis (4) Gallstone pancreatitis Assessment & Plan: 59-year-old male history of colon cancer chemo therapy resection doing well to recently developed arm pain nausea and vomiting. Identified to have severe acute gallstone pancreatitis. Abdomen tender but not in acute abdomen with peritonitis Currently no nausea vomiting leukocytosis lactic acidosis improving with resuscitation diet as tolerated IV fluids MRCP reviewed Trend labs We will follow with recommendations thank you for let me participate in patient' s care Given the severity of patient's acute severe gallstone pancreatitis would recommend cool down prior to cholecystectomy. Patient to have cholecystectomy but given the amount of pancreatic inflammation identified on CT and MRI would recommend allowing inflammation to settle and subside prior to surgical intervention. Patient can follow-up with his primary surgeon who performed multiple abdominal operations for his colon cancer to have procedure done or any surgeon within his network. Advance diet as tolerated. Okay to discharge from surgical standpoint. Pain management. mild subsegmental basilar atelectasis, left more pronounced than right. No acute basilar infiltrate. Extensive peripancreatic edema system with severe, acute pancreatitis. No clear focal glandular necrosis. No loculated fluid collection. No hemorrhage or gas. Mild extrahepatic biliary dilation. Enhancing gallbladder wall. No radiopaque gallstone. Recommend correlation for elevated biliary markers in addition to pancreatic enzymes. Renal cysts and hypodensities that are too small to characterize. No hydronephrosis. Transverse colonic resection with intact anastomosis. No bowel obstruction. The appendix is unremarkable. Aortoiliac atherosclerosis without aneurysm. No acute fracture. Mild thoracolumbar spondylosis. IMPRESSION: Acute pancreatitis. Distended gallbladder and CBD. No radiopaque gallstone, but recommend clinical/laboratory correlation. Incidental findings as above. Gallbladder demonstrates filling defects consistent with gallstones. The gallbladder wall is mildly thickened and mildly edematous. The common hepatic duct is mildly ectatic, measuring up to 9 mm in diameter. The common bile duct is normal in caliber. No intraluminal filling defect or obstructing stone is demonstrated. There is somewhat low insertion of the cystic duct into the common hepatic duct The pancreas is enlarged and edematous, and considerable phlegmon is seen within upper abdominal fat, similar in distribution to that described on prior CT scan. No discrete walled off fluid collection demonstrated. The pancreatic duct is normal in caliber. No focal liver lesion demonstrated. The spleen, adrenals are unremarkable. The kidneys demonstrate cysts bilaterally. The included upper pelvis appears unremarkable. Impression: Evidence of acute pancreatitis, also described on recent CT scan. No discrete fluid collection to suggest abscess or early pseudocyst formation Cholelithiasis. Mild gallbladder wall thickening. This could be related to the adjacent pancreatic inflammation, or could indicate acute cholecystitis. Correlate with clinical findings, consider nuclear medicine hepatobiliary scan if clinically indicated Ectatic common hepatic duct demonstrated, significance/etiology uncertain. Normal caliber common bile duct. No definite downstream obstructive lesion Incidental finding of bilateral renal cysts Yury Baxter Oct 14, 2019 14:43
--- NOTE | 2019-10-14 17:45 | Progress Note ---
DATE: 10/14/2019 SUBJECTIVE: This is a 59-year-old male, still complaining pain, poor p.o. intake. OBJECTIVE: VITAL SIGNS: Blood pressure 152/76, pulse 82, no fever. CHEST: Bilaterally clear. CARDIOVASCULAR: Regular rhythm. ABDOMEN: Soft. EXTREMITIES: No CCE. LABORATORY DATA: White counts are 11. Chemistry panel, amylase 187, lipase 497. ASSESSMENT: 1. Acute pancreatitis is improving. 2. Abdominal pain is still complaining and asking for every 4 hours. PLAN: We will increase the Dilaudid every 4 hours. Consider pain management. Encourage p.o. fluids. Ko Ortega M.D. DR: DAVID JOB#: [id number] CC:
[2019-10-14] MEDS: Docusate 100mg cap ORAL SCH (18:33)
[2019-10-14] MEDS: Dyna-Hex 2% Top Sol 2oz TOPIC SCH (20:18)
[2019-10-14] MEDS: Miralax 17gm pkt ORAL SCH (20:18)
[2019-10-15] VITALS (7 sets, daily range): BP systolic 130–172; BP diastolic 81–99
[2019-10-15] MEDS: NovoLOG Insulin Flexpen SUBQ SCH ×2 (06:25→18:07)
[2019-10-15 07:27] LABS: HEMATOCRIT 40.2 % (42.0-52.0); MEAN CORPUSCULAR VOLUME 90 FL (80-99); PLATELET COUNT 181 K/UL (150-450); RED BLOOD COUNT 4.47 M/UL (4.70-6.10); RED CELL DISTRIBUTION WIDTH 10.8 % (11.6-14.8); WHITE BLOOD COUNT 14.2 K/UL (4.8-10.8)
[2019-10-15 07:42] LABS: ALANINE AMINOTRANSFERASE 56 U/L (12-78); ALBUMIN 2.6 G/DL (3.4-5.0); ALBUMIN/GLOBULIN RATIO 0.7 (1.0-2.7); ALKALINE PHOSPHATASE 84 U/L (46-116); ANION GAP 13 mmol/L (5-15); ASPARTATE AMINO TRANSFERASE 16 U/L (15-37); BILIRUBIN,TOTAL 0.8 MG/DL (0.2-1.0); BLOOD UREA NITROGEN 7 mg/dL (7-18); CALCIUM 7.5 MG/DL (8.5-10.1); CARBON DIOXIDE 20 MMOL/L (21-32); CHLORIDE 102 MMOL/L (98-107); CREATININE 0.6 MG/DL (0.55-1.30); POTASSIUM 2.8 MMOL/L (3.5-5.1); SODIUM 135 MMOL/L (136-145)
[2019-10-15] MEDS: Lactulose 20gm/30ml UDC ORAL SCH (09:00)
[2019-10-15] MEDS: Docusate 100mg cap ORAL SCH (09:00)
[2019-10-15] MEDS: Pantoprazole Inj IVP SCH (09:36)
--- NOTE | 2019-10-15 11:02 | Infectious Diseases Prog Note ---
Assessment/Plan Assessment/Plan antibiotics : ceftriaxone A 1. e.coli sepsis 2. acute pancreatitis improving 3. diabetes mellitus 4. hypertension 5. colon cancer P 1. continue ceftriaxone 4 more days 2. will follow up cultures Subjective ROS Limited/Unobtainable: Yes Allergies: Coded Allergies: No Known Allergies (Unverified , 10/10/19) Objective Last 24 Hour Vital Signs Date Time Temp Pulse Resp B/P (MAP) Pulse Ox O2 Delivery O2 Flow Rate FiO2 10/15/19 10:45 97.8 104 15 172/99 (123) 95 10/15/19 10:18 172/94 10/15/19 08:00 97.8 99 15 172/94 (120) 96 10/15/19 04:00 98.8 102 20 145/96 (112) 95 10/15/19 00:00 97.2 75 19 145/81 (102) 95 10/14/19 21:00 Nasal Cannula 2.0 10/14/19 20:00 96.1 67 22 151/84 (106) 93 10/14/19 16:00 98.1 87 18 155/81 (105) 97 10/14/19 12:00 99.0 79 20 148/77 (100) 92 Height (Feet): 5 Height (Inches): 8.00 Weight (Pounds): 73 Respiratory/Chest: lungs clear Cardiovascular: normal rate, regular rhythm, no gallop/murmur Abdomen: soft, non tender Extremities: no edema, other - right subclavian, left arm ecchymoses Laboratory Tests Test 10/15/19 06:35 White Blood Count 14.2 K/UL (4.8-10.8) H Red Blood Count 4.47 M/UL (4.70-6.10) L Hemoglobin 14.0 G/DL (14.2-18.0) L Hematocrit 40.2 % (42.0-52.0) L Mean Corpuscular Volume 90 FL (80-99) Mean Corpuscular Hemoglobin 31.2 PG (27.0-31.0) H Mean Corpuscular Hemoglobin Concent 34.8 G/DL (32.0-36.0) Red Cell Distribution Width 10.8 % (11.6-14.8) L Platelet Count 181 K/UL (150-450) Mean Platelet Volume 7.1 FL (6.5-10.1) Neutrophils (%) (Auto) % (45.0-75.0) Lymphocytes (%) (Auto) % (20.0-45.0) Monocytes (%) (Auto) % (1.0-10.0) Eosinophils (%) (Auto) % (0.0-3.0) Basophils (%) (Auto) % (0.0-2.0) Differential Total Cells Counted 100 Neutrophils % (Manual) 84 % (45-75) H Lymphocytes % (Manual) 9 % (20-45) L Monocytes % (Manual) 7 % (1-10) Eosinophils % (Manual) 0 % (0-3) Basophils % (Manual) 0 % (0-2) Band Neutrophils 0 % (0-8) Platelet Estimate Adequate Platelet Morphology Normal Red Blood Cell Morphology Normal Sodium Level 135 MMOL/L (136-145) L Potassium Level 2.8 MMOL/L (3.5-5.1) L Chloride Level 102 MMOL/L (98-107) Carbon Dioxide Level 20 MMOL/L (21-32) L Anion Gap 13 mmol/L (5-15) Blood Urea Nitrogen 7 mg/dL (7-18) Creatinine 0.6 MG/DL (0.55-1.30) Estimat Glomerular Filtration Rate > 60 mL/min (>60) Glucose Level 148 MG/DL (74-106) H Calcium Level 7.5 MG/DL (8.5-10.1) L Total Bilirubin 0.8 MG/DL (0.2-1.0) Aspartate Amino Transf (AST/SGOT) 16 U/L (15-37) Alanine Aminotransferase (ALT/SGPT) 56 U/L (12-78) Alkaline Phosphatase 84 U/L (46-116) Total Protein 6.4 G/DL (6.4-8.2) Albumin 2.6 G/DL (3.4-5.0) L Globulin 3.8 g/dL Albumin/Globulin Ratio 0.7 (1.0-2.7) L Current Medications Medications (Trade) Dose Ordered Sig/Freida Route PRN Reason Start Time Stop Time Status Last Admin Dose Admin Acetaminophen (Tylenol) 500 mg Q6H PRN ORAL Temp >100.5 10/12/19 14:30 11/11/19 14:29 10/12/19 14:37 Acetaminophen (Tylenol) 500 mg Q6H PRN ORAL Mild Pain (Pain Scale 1-3) 10/12/19 14:30 11/11/19 14:29 Al Hydroxide/Mg Hydroxide (Mylanta) 30 ml Q8H PRN ORAL Gas/abdominal pain 10/12/19 22:00 11/11/19 21:59 10/13/19 08:35 Amlodipine Besylate (Norvasc) 10 mg DAILY ORAL 10/16/19 09:00 11/15/19 08:59 Chlorhexidine Gluconate (Janett-Hex 2%) 1 applic DAILY@2000 TOPIC 10/13/19 20:00 01/11/20 19:59 10/14/19 20:18 Clonidine HCl (Catapres Tab) 0.1 mg Q6H PRN ORAL Blood Pressure >160/90 10/15/19 10:00 01/13/20 09:59 10/15/19 10:18 Dextrose (Dextrose 50%) 25 ml Q30M PRN IV Hypoglycemia 10/11/19 14:00 01/09/20 10:59 Dextrose (Dextrose 50%) 50 ml Q30M PRN IV Hypoglycemia 10/11/19 14:00 01/09/20 10:59 Docusate Sodium (Colace) 100 mg TWICE A DAY ORAL 10/14/19 18:00 11/13/19 17:59 10/14/19 18:33 Hydromorphone HCl (Dilaudid) 2 mg Q4H PRN IVP Severe Pain 10/14/19 11:15 10/21/19 11:14 10/15/19 10:17 Insulin Aspart (NovoLOG) BIAC SUBQ 10/11/19 16:30 01/09/20 11:29 Lactobacillus Acidophilus (Culturelle) 1 tab THREE TIMES A DAY ORAL 10/15/19 13:00 01/13/20 12:59 Lactulose (Cephulac) 20 gm THREE TIMES A DAY ORAL 10/14/19 13:00 11/13/19 12:59 10/14/19 18:33 Ondansetron HCl (Zofran) 4 mg Q4H PRN IVP Nausea & Vomiting 10/11/19 17:30 11/09/19 17:29 10/15/19 06:11 Pantoprazole (Protonix) 40 mg DAILY IVP 10/12/19 09:00 11/10/19 08:59 10/15/19 09:36 Polyethylene Glycol (Miralax) 17 gm BEDTIME ORAL 10/14/19 21:00 11/13/19 20:59 10/14/19 20:18 Sodium Chloride 1,000 ml @ 150 mls/hr Q6H40M IV 10/12/19 15:21 11/11/19 15:20 10/15/19 05:51 Mario Sawyer MD Oct 15, 2019 11:02
[2019-10-15] MEDS: Lactobacillus-GG tablet ORAL SCH ×2 (13:54→18:05)
[2019-10-15] MEDS ORDERED: Tubing IV Secondary IV ONE ×3 (14:14→20:51)
--- NOTE | 2019-10-15 14:54 | Surgery Progress Note ---
Surgery Progress Note Subjective Symptoms: pain same, tolerating diet, voiding well, passing flatus, BM Objective Last 24 Hour Vital Signs Date Time Temp Pulse Resp B/P (MAP) Pulse Ox O2 Delivery O2 Flow Rate FiO2 10/15/19 12:00 98.2 96 12 154/86 (108) 94 10/15/19 10:45 97.8 104 15 172/99 (123) 95 10/15/19 10:18 172/94 10/15/19 09:00 Room Air 10/15/19 08:00 97.8 99 15 172/94 (120) 96 10/15/19 04:00 98.8 102 20 145/96 (112) 95 10/15/19 00:00 97.2 75 19 145/81 (102) 95 10/14/19 21:00 Nasal Cannula 2.0 10/14/19 20:00 96.1 67 22 151/84 (106) 93 10/14/19 16:00 98.1 87 18 155/81 (105) 97 I&O Intake and Output 10/14/19 10/15/19 19:00 07:00 Intake Total 2082.5 ml 1500 ml Output Total 1300 ml 670 ml Balance 782.5 ml 830 ml Intake Oral 700 ml IV Total 1382.5 ml 1500 ml Output Urine Total 1300 ml 670 ml # Voids 3 3 Cardiovascular: RSR Respiratory: clear Abdomen: soft, distended, tenderness, present bowel sounds Extremities: no tenderness, no cyanosis, other Laboratory Tests Test 10/15/19 06:35 White Blood Count 14.2 K/UL (4.8-10.8) H Red Blood Count 4.47 M/UL (4.70-6.10) L Hemoglobin 14.0 G/DL (14.2-18.0) L Hematocrit 40.2 % (42.0-52.0) L Mean Corpuscular Volume 90 FL (80-99) Mean Corpuscular Hemoglobin 31.2 PG (27.0-31.0) H Mean Corpuscular Hemoglobin Concent 34.8 G/DL (32.0-36.0) Red Cell Distribution Width 10.8 % (11.6-14.8) L Platelet Count 181 K/UL (150-450) Mean Platelet Volume 7.1 FL (6.5-10.1) Neutrophils (%) (Auto) % (45.0-75.0) Lymphocytes (%) (Auto) % (20.0-45.0) Monocytes (%) (Auto) % (1.0-10.0) Eosinophils (%) (Auto) % (0.0-3.0) Basophils (%) (Auto) % (0.0-2.0) Differential Total Cells Counted 100 Neutrophils % (Manual) 84 % (45-75) H Lymphocytes % (Manual) 9 % (20-45) L Monocytes % (Manual) 7 % (1-10) Eosinophils % (Manual) 0 % (0-3) Basophils % (Manual) 0 % (0-2) Band Neutrophils 0 % (0-8) Platelet Estimate Adequate Platelet Morphology Normal Red Blood Cell Morphology Normal Sodium Level 135 MMOL/L (136-145) L Potassium Level 2.8 MMOL/L (3.5-5.1) L Chloride Level 102 MMOL/L (98-107) Carbon Dioxide Level 20 MMOL/L (21-32) L Anion Gap 13 mmol/L (5-15) Blood Urea Nitrogen 7 mg/dL (7-18) Creatinine 0.6 MG/DL (0.55-1.30) Estimat Glomerular Filtration Rate > 60 mL/min (>60) Glucose Level 148 MG/DL (74-106) H Calcium Level 7.5 MG/DL (8.5-10.1) L Total Bilirubin 0.8 MG/DL (0.2-1.0) Aspartate Amino Transf (AST/SGOT) 16 U/L (15-37) Alanine Aminotransferase (ALT/SGPT) 56 U/L (12-78) Alkaline Phosphatase 84 U/L (46-116) Total Protein 6.4 G/DL (6.4-8.2) Albumin 2.6 G/DL (3.4-5.0) L Globulin 3.8 g/dL Albumin/Globulin Ratio 0.7 (1.0-2.7) L Plan Problems: (1) Colon cancer (2) Pneumonia (3) Severe sepsis (4) Gallstone pancreatitis Assessment & Plan: 59-year-old male history of colon cancer chemo therapy resection doing well to recently developed arm pain nausea and vomiting. Identified to have severe acute gallstone pancreatitis. Abdomen tender but not in acute abdomen with peritonitis Currently no nausea vomiting leukocytosis lactic acidosis improving with resuscitation diet as tolerated IV fluids MRCP reviewed Trend labs We will follow with recommendations thank you for let me participate in patient' s care Given the severity of patient's acute severe gallstone pancreatitis would recommend cool down prior to cholecystectomy. Patient to have cholecystectomy but given the amount of pancreatic inflammation identified on CT and MRI would recommend allowing inflammation to settle and subside prior to surgical intervention. Patient can follow-up with his primary surgeon who performed multiple abdominal operations for his colon cancer to have procedure done or any surgeon within his network. Advance diet as tolerated. Okay to discharge from surgical standpoint. Pain management. mild subsegmental basilar atelectasis, left more pronounced than right. No acute basilar infiltrate. Extensive peripancreatic edema system with severe, acute pancreatitis. No clear focal glandular necrosis. No loculated fluid collection. No hemorrhage or gas. Mild extrahepatic biliary dilation. Enhancing gallbladder wall. No radiopaque gallstone. Recommend correlation for elevated biliary markers in addition to pancreatic enzymes. Renal cysts and hypodensities that are too small to characterize. No hydronephrosis. Transverse colonic resection with intact anastomosis. No bowel obstruction. The appendix is unremarkable. Aortoiliac atherosclerosis without aneurysm. No acute fracture. Mild thoracolumbar spondylosis. IMPRESSION: Acute pancreatitis. Distended gallbladder and CBD. No radiopaque gallstone, but recommend clinical/laboratory correlation. Incidental findings as above. Gallbladder demonstrates filling defects consistent with gallstones. The gallbladder wall is mildly thickened and mildly edematous. The common hepatic duct is mildly ectatic, measuring up to 9 mm in diameter. The common bile duct is normal in caliber. No intraluminal filling defect or obstructing stone is demonstrated. There is somewhat low insertion of the cystic duct into the common hepatic duct The pancreas is enlarged and edematous, and considerable phlegmon is seen within upper abdominal fat, similar in distribution to that described on prior CT scan. No discrete walled off fluid collection demonstrated. The pancreatic duct is normal in caliber. No focal liver lesion demonstrated. The spleen, adrenals are unremarkable. The kidneys demonstrate cysts bilaterally. The included upper pelvis appears unremarkable. Impression: Evidence of acute pancreatitis, also described on recent CT scan. No discrete fluid collection to suggest abscess or early pseudocyst formation Cholelithiasis. Mild gallbladder wall thickening. This could be related to the adjacent pancreatic inflammation, or could indicate acute cholecystitis. Correlate with clinical findings, consider nuclear medicine hepatobiliary scan if clinically indicated Ectatic common hepatic duct demonstrated, significance/etiology uncertain. Normal caliber common bile duct. No definite downstream obstructive lesion Incidental finding of bilateral renal cysts (5) Pain Assessment & Plan: hand fx noted ortho input appreciated abd pain stable kub ordered Yury Baxter Oct 15, 2019 14:53
--- NOTE | 2019-10-15 14:57 | General Progress Note ---
Assessment/Plan Assessment/Plan: Assessment - acute gallstone pancreatitis - abd pain - cholelithiasis - leukocytosis - h/o colon CA Recommendations - abx - IVF - monitor labs - repeat CT in next 1-2 days - eventual lap hieu Subjective Allergies: Coded Allergies: No Known Allergies (Unverified , 10/10/19) Subjective above noted d/w DTR on phone patient c/o abd pain on full liquid diet WBC higher today Objective Last 24 Hour Vital Signs Date Time Temp Pulse Resp B/P (MAP) Pulse Ox O2 Delivery O2 Flow Rate FiO2 10/15/19 12:00 98.2 96 12 154/86 (108) 94 10/15/19 10:45 97.8 104 15 172/99 (123) 95 10/15/19 10:18 172/94 10/15/19 09:00 Room Air 10/15/19 08:00 97.8 99 15 172/94 (120) 96 10/15/19 04:00 98.8 102 20 145/96 (112) 95 10/15/19 00:00 97.2 75 19 145/81 (102) 95 10/14/19 21:00 Nasal Cannula 2.0 10/14/19 20:00 96.1 67 22 151/84 (106) 93 10/14/19 16:00 98.1 87 18 155/81 (105) 97 Intake and Output 10/14/19 10/15/19 19:00 07:00 Intake Total 2082.5 ml 1500 ml Output Total 1300 ml 670 ml Balance 782.5 ml 830 ml Intake Oral 700 ml IV Total 1382.5 ml 1500 ml Output Urine Total 1300 ml 670 ml # Voids 3 3 Laboratory Tests 10/15/19 06:35: White Blood Count 14.2H, Red Blood Count 4.47L, Hemoglobin 14.0L, Hematocrit 40.2L, Mean Corpuscular Volume 90, Mean Corpuscular Hemoglobin 31.2H, Mean Corpuscular Hemoglobin Concent 34.8, Red Cell Distribution Width 10.8L, Platelet Count 181, Mean Platelet Volume 7.1, Neutrophils (%) (Auto) , Lymphocytes (%) (Auto) , Monocytes (%) (Auto) , Eosinophils (%) (Auto) , Basophils (%) (Auto) , Differential Total Cells Counted 100, Neutrophils % ( Manual) 84H, Lymphocytes % (Manual) 9L, Monocytes % (Manual) 7, Eosinophils % ( Manual) 0, Basophils % (Manual) 0, Band Neutrophils 0, Platelet Estimate Adequate, Platelet Morphology Normal, Red Blood Cell Morphology Normal, Sodium Level 135L, Potassium Level 2.8L, Chloride Level 102, Carbon Dioxide Level 20L, Anion Gap 13, Blood Urea Nitrogen 7, Creatinine 0.6, Estimat Glomerular Filtration Rate > 60, Glucose Level 148H, Calcium Level 7.5L, Total Bilirubin 0.8, Aspartate Amino Transf (AST/SGOT) 16, Alanine Aminotransferase (ALT/SGPT) 56, Alkaline Phosphatase 84, Total Protein 6.4, Albumin 2.6L, Globulin 3.8, Albumin/Globulin Ratio 0.7L Height (Feet): 5 Height (Inches): 8.00 Weight (Pounds): 73 Objective WDWN man NCAT supple CTA RR abd soft, (+) epigastric TTP, old midline scar no edema Eladio Ramos MD Oct 15, 2019 14:57
[2019-10-15] MEDS: cefTRIAXone 1 GM in D5W 55 ML IVPB SCH (14:59)
--- NOTE | 2019-10-15 17:30 | Progress Note ---
DATE: 10/15/2019 This is a patient complaining of diarrhea. Abdominal pain is slightly better, tolerating some liquid diet. OBJECTIVE: VITAL SIGNS: Blood pressure is 130/70, pulse 100, respirations 18, temperature is no fever. HEENT: NAD. CHEST: Bilaterally clear. CARDIOVASCULAR: Regular rhythm. ABDOMEN: Soft. Mild tenderness. GENITOURINARY: Deferred. LABORATORY AND DIAGNOSTIC DATA: His lipase is about normal. ASSESSMENT: 1. Acute pancreatitis. 2. History of colon CA. 3. Hypertension that is high. PLAN: We will add Norvasc and clonidine p.r.n. Continue liquid diet. Continue pain medication. Discontinue antibiotics. Check stool occult blood x2 for diarrhea. Ko Ortega M.D. DR: MIMI JOB#: [id number] CC:
[2019-10-15] MEDS ORDERED: Omnipaque-300 100ml vial INJ PRN (17:45)
[2019-10-15] MEDS ORDERED: NS 500ML ONE (20:51)
[2019-10-15] MEDS: Dyna-Hex 2% Top Sol 2oz TOPIC SCH (20:52)
[2019-10-15] MEDS: Miralax 17gm pkt ORAL SCH (21:00)
[2019-10-16] VITALS: BP 138/83
[2019-10-16 04:00] VITALS: BP 136/73
[2019-10-16] MEDS: NovoLOG Insulin Flexpen SUBQ SCH ×2 (06:30→16:30)
[2019-10-16 07:35] LABS: BASOPHILS % (AUTO) 0.6 % (0.0-2.0); EOSINOPHILS % (AUTO) 0.9 % (0.0-3.0); HEMATOCRIT 33.7 % (42.0-52.0); HEMOGLOBIN 11.8 G/DL (14.2-18.0); LYMPHOCYTES % (AUTO) 9.1 % (20.0-45.0); MEAN CORPUSCULAR VOLUME 90 FL (80-99); MONOCYTES % (AUTO) 5.3 % (1.0-10.0); NEUTROPHILS % (AUTO) 84.1 % (45.0-75.0); PLATELET COUNT 181 K/UL (150-450); RED BLOOD COUNT 3.75 M/UL (4.70-6.10); RED CELL DISTRIBUTION WIDTH 10.8 % (11.6-14.8); WHITE BLOOD COUNT 13.3 K/UL (4.8-10.8)
[2019-10-16 07:38] LABS: INR 1.1 (0.9-1.1)
[2019-10-16 07:54] LABS: ALANINE AMINOTRANSFERASE 67 U/L (12-78); ALBUMIN 2.3 G/DL (3.4-5.0); ALBUMIN/GLOBULIN RATIO 0.7 (1.0-2.7); ALKALINE PHOSPHATASE 73 U/L (46-116); ANION GAP 10 mmol/L (5-15); ASPARTATE AMINO TRANSFERASE 26 U/L (15-37); BILIRUBIN,TOTAL 0.8 MG/DL (0.2-1.0); BLOOD UREA NITROGEN 7 mg/dL (7-18); CALCIUM 7.8 MG/DL (8.5-10.1); CARBON DIOXIDE 23 MMOL/L (21-32); CHLORIDE 101 MMOL/L (98-107); CREATININE 0.6 MG/DL (0.55-1.30); POTASSIUM 3.1 MMOL/L (3.5-5.1); SODIUM 134 MMOL/L (136-145)
[2019-10-16 08:00] VITALS: BP 130/75
[2019-10-16] MEDS: Lactobacillus-GG tablet ORAL SCH ×3 (09:00→17:36)
[2019-10-16] MEDS: Pantoprazole Inj IVP SCH (09:49)
--- NOTE | 2019-10-16 10:45 | Diagnostic Imaging Report ---
EXAM: CT Abdomen and Pelvis Without and With Intravenous Contrast CLINICAL HISTORY: ABD PAIN TECHNIQUE: Axial computed tomography images of the abdomen and pelvis without and with intravenous contrast. Sagittal and coronal reformatted images were created and reviewed. CTDI is 7.20 mGy and DLP is 431.40 mGy-cm. One or more of the following dose reduction techniques were used: automated exposure control, adjustment of the mA and/or kV according to patient size, use of iterative reconstruction technique. COMPARISON: MRI of the abdomen dated 10/11/19. CT abdomen and pelvis dated 10/10/19. FINDINGS: Lung bases: Atelectasis versus infiltrate in the left lung base. Pleural space: Small left pleural effusion. ABDOMEN: Liver: Unremarkable. No suspicious parenchymal lesions Gallbladder and bile ducts: The known cholelithiasis has noncalcified stones which are not well seen by CT. Mild gallbladder wall enhancement and pericholecystic fluid is present. No ductal dilation. Pancreas: Acute interstitial pancreatitis. Extensive peripancreatic inflammatory stranding and free fluid/phlegmon, extending to bilateral anterior pararenal spaces. No loculated fluid collection seen. Approximately 2.5 cm region of hypoenhancement in the proximal pancreatic body may represent early pancreatic parenchymal necrosis. No ductal dilation. Spleen: Unremarkable. No splenomegaly. Adrenals: Unremarkable. No mass. Kidneys and ureters: Bilateral subcentimeter simple-appearing renal cortical cysts. The kidneys otherwise appear unremarkable. No hydronephrosis or hydroureter. Stomach and bowel: Diffuse distention of small bowel loops, colon, and rectum with luminal air-fluid levels, without focal transition point, suggesting reactive ileus and diarrheal disease. No mucosal thickening. PELVIS: Appendix: No findings to suggest acute appendicitis. Bladder: Unremarkable. No mass. No stones. Reproductive: Unremarkable as visualized. ABDOMEN and PELVIS: Intraperitoneal space: See above. Bones/joints: No acute fracture. No dislocation. Soft tissues: Unremarkable. Vasculature: Unremarkable. No abdominal aortic aneurysm. Lymph nodes: Unremarkable. No enlarged lymph nodes. Tubes, lines and devices: Tip of the central venous catheter in the right superior cavoatrial junction. IMPRESSION: 1. Acute interstitial pancreatitis. Extensive peripancreatic inflammatory stranding and free fluid/phlegmon, extending to bilateral anterior pararenal spaces. No loculated fluid collection seen. Approximately 2.5 cm region of hypoenhancement in the proximal pancreatic body suggests early pancreatic parenchymal necrosis. No significant distention of the main pancreatic duct. Portal and splenic veins remain patent. 2. Diffuse distention of small bowel loops, colon, and rectum with luminal air-fluid levels, without focal transition point, suggesting reactive ileus and diarrheal disease. 3. The known cholelithiasis has noncalcified stones which are not well seen by CT. Mild gallbladder wall enhancement and pericholecystic fluid is present. 4. Small left pleural effusion. 5. Atelectasis versus infiltrate in the left lung base.
[2019-10-16] MEDS: cefTRIAXone 1 GM in D5W 55 ML IVPB SCH (11:09)
--- NOTE | 2019-10-16 12:01 | Consultation ---
History of Present Illness General Date patient seen: Oct 16, 2019 Chief Complaint: Present Illness Allergies: Coded Allergies: No Known Allergies (Unverified , 10/10/19) Medication History Scheduled Atorvastatin Calcium* (Atorvastatin Calcium*), 20 MG ORAL BEDTIME, (Reported) Metformin Hcl* (Metformin Hcl*), 500 MG ORAL TWICE A DAY, (Reported) Tamsulosin HCl (Flomax), 0.4 MG ORAL BID, (Reported) Patient History Healthcare decision maker PATIENT IS SELF RESPONSIBLE Resuscitation status Advanced Directive on File Physical Exam Last 24 Hour Vital Signs Date Time Temp Pulse Resp B/P (MAP) Pulse Ox O2 Delivery O2 Flow Rate FiO2 10/16/19 09:00 Room Air 10/16/19 08:00 98.2 97 20 130/75 (93) 97 10/16/19 04:00 98.0 95 19 136/73 (94) 96 10/16/19 00:00 97.3 80 19 138/83 (101) 96 10/15/19 21:00 Room Air 10/15/19 20:00 97.8 87 19 145/90 (108) 96 10/15/19 16:00 98.7 98 19 130/87 (101) 97 Intake and Output 10/15/19 10/16/19 19:00 07:00 Intake Total 800 ml Output Total 950 ml Balance 800 ml -950 ml Intake Oral 800 ml Output Urine Total 950 ml # Voids 4 3 # Bowel Movements 3 Laboratory Tests Test 10/16/19 06:00 White Blood Count 13.3 K/UL (4.8-10.8) H Red Blood Count 3.75 M/UL (4.70-6.10) L Hemoglobin 11.8 G/DL (14.2-18.0) L Hematocrit 33.7 % (42.0-52.0) L Mean Corpuscular Volume 90 FL (80-99) Mean Corpuscular Hemoglobin 31.5 PG (27.0-31.0) H Mean Corpuscular Hemoglobin Concent 35.1 G/DL (32.0-36.0) Red Cell Distribution Width 10.8 % (11.6-14.8) L Platelet Count 181 K/UL (150-450) Mean Platelet Volume 6.9 FL (6.5-10.1) Neutrophils (%) (Auto) 84.1 % (45.0-75.0) H Lymphocytes (%) (Auto) 9.1 % (20.0-45.0) L Monocytes (%) (Auto) 5.3 % (1.0-10.0) Eosinophils (%) (Auto) 0.9 % (0.0-3.0) Basophils (%) (Auto) 0.6 % (0.0-2.0) Erythrocyte Sedimentation Rate 51 MM/HR (0-20) H Prothrombin Time 12.1 SEC (9.30-11.50) H Prothromb Time International Ratio 1.1 (0.9-1.1) Activated Partial Thromboplast Time 33 SEC (23-33) Sodium Level 134 MMOL/L (136-145) L Potassium Level 3.1 MMOL/L (3.5-5.1) L Chloride Level 101 MMOL/L (98-107) Carbon Dioxide Level 23 MMOL/L (21-32) Anion Gap 10 mmol/L (5-15) Blood Urea Nitrogen 7 mg/dL (7-18) Creatinine 0.6 MG/DL (0.55-1.30) Estimat Glomerular Filtration Rate > 60 mL/min (>60) Glucose Level 140 MG/DL (74-106) H Calcium Level 7.8 MG/DL (8.5-10.1) L Total Bilirubin 0.8 MG/DL (0.2-1.0) Aspartate Amino Transf (AST/SGOT) 26 U/L (15-37) Alanine Aminotransferase (ALT/SGPT) 67 U/L (12-78) Alkaline Phosphatase 73 U/L (46-116) C-Reactive Protein, Quantitative 36.7 mg/dL (0.00-0.90) H Total Protein 5.4 G/DL (6.4-8.2) L Albumin 2.3 G/DL (3.4-5.0) L Globulin 3.1 g/dL Albumin/Globulin Ratio 0.7 (1.0-2.7) L Amylase Level 41 U/L (25-115) Lipase 89 U/L (73-393) Height (Feet): 5 Height (Inches): 8.00 Weight (Pounds): 73 Medications Current Medications Medications (Trade) Dose Ordered Sig/Freida Route PRN Reason Start Time Stop Time Status Last Admin Dose Admin Acetaminophen (Tylenol) 500 mg Q6H PRN ORAL Temp >100.5 10/12/19 14:30 11/11/19 14:29 10/12/19 14:37 Acetaminophen (Tylenol) 500 mg Q6H PRN ORAL Mild Pain (Pain Scale 1-3) 10/12/19 14:30 11/11/19 14:29 Al Hydroxide/Mg Hydroxide (Mylanta) 30 ml Q8H PRN ORAL Gas/abdominal pain 10/12/19 22:00 11/11/19 21:59 10/13/19 08:35 Amlodipine Besylate (Norvasc) 10 mg DAILY ORAL 10/16/19 09:00 11/15/19 08:59 Barium Sulfate (Readi-Cat 2) 450 ml NOW PRN ORAL Radiology Procedure 10/15/19 17:45 10/17/19 17:35 Ceftriaxone Sodium 1 gm/ Dextrose 55 ml @ 110 mls/hr Q24H IVPB 10/15/19 11:30 10/22/19 11:29 10/16/19 11:09 Chlorhexidine Gluconate (Janett-Hex 2%) 1 applic DAILY@2000 TOPIC 10/13/19 20:00 01/11/20 19:59 10/15/19 20:52 Clonidine HCl (Catapres Tab) 0.1 mg Q6H PRN ORAL Blood Pressure >160/90 10/15/19 10:00 01/13/20 09:59 10/15/19 10:18 Dextrose (Dextrose 50%) 25 ml Q30M PRN IV Hypoglycemia 10/11/19 14:00 01/09/20 10:59 Dextrose (Dextrose 50%) 50 ml Q30M PRN IV Hypoglycemia 10/11/19 14:00 01/09/20 10:59 Hydromorphone HCl (Dilaudid) 2 mg Q4H PRN IVP Severe Pain 10/14/19 11:15 10/21/19 11:14 10/16/19 10:00 Insulin Aspart (NovoLOG) BIAC SUBQ 10/11/19 16:30 01/09/20 11:29 10/15/19 18:07 Iohexol (OMNIPAQUE-300 100ml) 100 ml NOW PRN INJ Radiology Procedure 10/15/19 17:45 10/17/19 17:35 Lactobacillus Acidophilus (Culturelle) 1 tab THREE TIMES A DAY ORAL 10/15/19 13:00 01/13/20 12:59 10/15/19 18:05 Ondansetron HCl (Zofran) 4 mg Q4H PRN IVP Nausea & Vomiting 10/11/19 17:30 11/09/19 17:29 10/16/19 06:42 Pantoprazole (Protonix) 40 mg DAILY IVP 10/12/19 09:00 11/10/19 08:59 10/16/19 09:49 Polyethylene Glycol (Miralax) 17 gm BEDTIME ORAL 10/14/19 21:00 11/13/19 20:59 10/14/19 20:18 Potassium Chloride 100 ml @ 100 mls/hr Q1HR IVPB 10/16/19 10:00 10/16/19 13:59 10/16/19 11:09 Sodium Chloride 1,000 ml @ 150 mls/hr Q6H40M IV 10/12/19 15:21 11/11/19 15:20 10/16/19 06:11 Assessment/Plan Assessment/Plan: (1) Abdominal pain (2) Pancreatitis (3) H/o colon cancer seen dictated Tucker Zamora Oct 16, 2019 12:01
[2019-10-16] MEDS ORDERED: Naloxone 0.4mg/ml Inj IVP PRN (12:15)
--- NOTE | 2019-10-16 13:03 | Infectious Diseases Prog Note ---
Assessment/Plan Assessment/Plan A 1. E.coli sepsis 2. acute pancreatitis 3. diabetes mellitus 4. hypertension 5. colon cancer P 1. continue Ceftriaxone X 3 days 2. Case was D/W daughter Subjective ROS Limited/Unobtainable: No Constitutional: Reports: anorexia Respiratory: Reports: no symptoms Cardiovascular: Reports: no symptoms Gastrointestinal/Abdominal: Reports: other - abdominal pain & distention Genitourinary: Reports: no symptoms Allergies: Coded Allergies: No Known Allergies (Unverified , 10/10/19) Objective Last 24 Hour Vital Signs Date Time Temp Pulse Resp B/P (MAP) Pulse Ox O2 Delivery O2 Flow Rate FiO2 10/16/19 09:00 Room Air 10/16/19 08:00 98.2 97 20 130/75 (93) 97 10/16/19 04:00 98.0 95 19 136/73 (94) 96 10/16/19 00:00 97.3 80 19 138/83 (101) 96 10/15/19 21:00 Room Air 10/15/19 20:00 97.8 87 19 145/90 (108) 96 10/15/19 16:00 98.7 98 19 130/87 (101) 97 Height (Feet): 5 Height (Inches): 8.00 Weight (Pounds): 73 General Appearance: no acute distress HEENT: mucous membranes moist Respiratory/Chest: lungs clear Cardiovascular: normal rate, other - Portacath Abdomen: distended, other - tender Extremities: no edema Neurologic/Psychiatric: alert, oriented x 3, responsive Laboratory Tests Test 10/16/19 06:00 White Blood Count 13.3 K/UL (4.8-10.8) H Red Blood Count 3.75 M/UL (4.70-6.10) L Hemoglobin 11.8 G/DL (14.2-18.0) L Hematocrit 33.7 % (42.0-52.0) L Mean Corpuscular Volume 90 FL (80-99) Mean Corpuscular Hemoglobin 31.5 PG (27.0-31.0) H Mean Corpuscular Hemoglobin Concent 35.1 G/DL (32.0-36.0) Red Cell Distribution Width 10.8 % (11.6-14.8) L Platelet Count 181 K/UL (150-450) Mean Platelet Volume 6.9 FL (6.5-10.1) Neutrophils (%) (Auto) 84.1 % (45.0-75.0) H Lymphocytes (%) (Auto) 9.1 % (20.0-45.0) L Monocytes (%) (Auto) 5.3 % (1.0-10.0) Eosinophils (%) (Auto) 0.9 % (0.0-3.0) Basophils (%) (Auto) 0.6 % (0.0-2.0) Erythrocyte Sedimentation Rate 51 MM/HR (0-20) H Prothrombin Time 12.1 SEC (9.30-11.50) H Prothromb Time International Ratio 1.1 (0.9-1.1) Activated Partial Thromboplast Time 33 SEC (23-33) Sodium Level 134 MMOL/L (136-145) L Potassium Level 3.1 MMOL/L (3.5-5.1) L Chloride Level 101 MMOL/L (98-107) Carbon Dioxide Level 23 MMOL/L (21-32) Anion Gap 10 mmol/L (5-15) Blood Urea Nitrogen 7 mg/dL (7-18) Creatinine 0.6 MG/DL (0.55-1.30) Estimat Glomerular Filtration Rate > 60 mL/min (>60) Glucose Level 140 MG/DL (74-106) H Calcium Level 7.8 MG/DL (8.5-10.1) L Total Bilirubin 0.8 MG/DL (0.2-1.0) Aspartate Amino Transf (AST/SGOT) 26 U/L (15-37) Alanine Aminotransferase (ALT/SGPT) 67 U/L (12-78) Alkaline Phosphatase 73 U/L (46-116) C-Reactive Protein, Quantitative 36.7 mg/dL (0.00-0.90) H Total Protein 5.4 G/DL (6.4-8.2) L Albumin 2.3 G/DL (3.4-5.0) L Globulin 3.1 g/dL Albumin/Globulin Ratio 0.7 (1.0-2.7) L Amylase Level 41 U/L (25-115) Lipase 89 U/L (73-393) Current Medications Medications (Trade) Dose Ordered Sig/Freida Route PRN Reason Start Time Stop Time Status Last Admin Dose Admin Acetaminophen (Tylenol) 500 mg Q6H PRN ORAL Temp >100.5 10/12/19 14:30 11/11/19 14:29 10/12/19 14:37 Acetaminophen (Tylenol) 500 mg Q6H PRN ORAL Mild Pain (Pain Scale 1-3) 10/12/19 14:30 11/11/19 14:29 Al Hydroxide/Mg Hydroxide (Mylanta) 30 ml Q8H PRN ORAL Gas/abdominal pain 10/12/19 22:00 11/11/19 21:59 10/13/19 08:35 Amlodipine Besylate (Norvasc) 10 mg DAILY ORAL 10/16/19 09:00 11/15/19 08:59 Barium Sulfate (Readi-Cat 2) 450 ml NOW PRN ORAL Radiology Procedure 10/15/19 17:45 10/17/19 17:35 Ceftriaxone Sodium 1 gm/ Dextrose 55 ml @ 110 mls/hr Q24H IVPB 10/15/19 11:30 10/22/19 11:29 10/16/19 11:09 Chlorhexidine Gluconate (Janett-Hex 2%) 1 applic DAILY@2000 TOPIC 10/13/19 20:00 01/11/20 19:59 10/15/19 20:52 Clonidine HCl (Catapres Tab) 0.1 mg Q6H PRN ORAL Blood Pressure >160/90 10/15/19 10:00 01/13/20 09:59 10/15/19 10:18 Dextrose (Dextrose 50%) 25 ml Q30M PRN IV Hypoglycemia 10/11/19 14:00 01/09/20 10:59 Dextrose (Dextrose 50%) 50 ml Q30M PRN IV Hypoglycemia 10/11/19 14:00 01/09/20 10:59 Hydromorphone HCl (Dilaudid) 1 mg Q2H PRN IVP Severe Pain 10/16/19 12:15 10/21/19 11:14 Insulin Aspart (NovoLOG) BIAC SUBQ 10/11/19 16:30 01/09/20 11:29 10/15/19 18:07 Iohexol (OMNIPAQUE-300 100ml) 100 ml NOW PRN INJ Radiology Procedure 10/15/19 17:45 10/17/19 17:35 Lactobacillus Acidophilus (Culturelle) 1 tab THREE TIMES A DAY ORAL 10/15/19 13:00 01/13/20 12:59 10/16/19 12:21 Naloxone HCl (Narcan) 0.2 mg Q2M PRN IVP respritory depression 10/16/19 12:15 01/14/20 12:14 Ondansetron HCl (Zofran) 4 mg Q4H PRN IVP Nausea & Vomiting 10/11/19 17:30 11/09/19 17:29 10/16/19 06:42 Pantoprazole (Protonix) 40 mg DAILY IVP 10/12/19 09:00 11/10/19 08:59 10/16/19 09:49 Polyethylene Glycol (Miralax) 17 gm BEDTIME ORAL 10/14/19 21:00 11/13/19 20:59 10/14/19 20:18 Potassium Chloride 100 ml @ 100 mls/hr Q1HR IVPB 10/16/19 10:00 10/16/19 13:59 10/16/19 12:21 Sodium Chloride 1,000 ml @ 150 mls/hr Q6H40M IV 10/12/19 15:21 11/11/19 15:20 10/16/19 12:20 Cullen Lobo MD Oct 16, 2019 13:03
--- NOTE | 2019-10-16 14:15 | Surgery Progress Note ---
Surgery Progress Note Subjective Symptoms: tolerating diet, voiding well Additional Comments Repeat CT noted. Severe pancreatitis with potential focus of necrosis but no active infectious process identified. Unlikely to be infected pancreatic necrosis. Labs improving exam stable complaining of pain but improved. Spoke with daughter on the phone with face time today. Objective Last 24 Hour Vital Signs Date Time Temp Pulse Resp B/P (MAP) Pulse Ox O2 Delivery O2 Flow Rate FiO2 10/16/19 09:00 Room Air 10/16/19 08:00 98.2 97 20 130/75 (93) 97 10/16/19 04:00 98.0 95 19 136/73 (94) 96 10/16/19 00:00 97.3 80 19 138/83 (101) 96 10/15/19 21:00 Room Air 10/15/19 20:00 97.8 87 19 145/90 (108) 96 10/15/19 16:00 98.7 98 19 130/87 (101) 97 I&O Intake and Output 10/15/19 10/16/19 19:00 07:00 Intake Total 800 ml Output Total 950 ml Balance 800 ml -950 ml Intake Oral 800 ml Output Urine Total 950 ml # Voids 4 3 # Bowel Movements 3 Cardiovascular: RSR Respiratory: clear Abdomen: soft, distended, tenderness, present bowel sounds Extremities: no edema, no tenderness, no cyanosis Laboratory Tests Test 10/16/19 06:00 White Blood Count 13.3 K/UL (4.8-10.8) H Red Blood Count 3.75 M/UL (4.70-6.10) L Hemoglobin 11.8 G/DL (14.2-18.0) L Hematocrit 33.7 % (42.0-52.0) L Mean Corpuscular Volume 90 FL (80-99) Mean Corpuscular Hemoglobin 31.5 PG (27.0-31.0) H Mean Corpuscular Hemoglobin Concent 35.1 G/DL (32.0-36.0) Red Cell Distribution Width 10.8 % (11.6-14.8) L Platelet Count 181 K/UL (150-450) Mean Platelet Volume 6.9 FL (6.5-10.1) Neutrophils (%) (Auto) 84.1 % (45.0-75.0) H Lymphocytes (%) (Auto) 9.1 % (20.0-45.0) L Monocytes (%) (Auto) 5.3 % (1.0-10.0) Eosinophils (%) (Auto) 0.9 % (0.0-3.0) Basophils (%) (Auto) 0.6 % (0.0-2.0) Erythrocyte Sedimentation Rate 51 MM/HR (0-20) H Prothrombin Time 12.1 SEC (9.30-11.50) H Prothromb Time International Ratio 1.1 (0.9-1.1) Activated Partial Thromboplast Time 33 SEC (23-33) Sodium Level 134 MMOL/L (136-145) L Potassium Level 3.1 MMOL/L (3.5-5.1) L Chloride Level 101 MMOL/L (98-107) Carbon Dioxide Level 23 MMOL/L (21-32) Anion Gap 10 mmol/L (5-15) Blood Urea Nitrogen 7 mg/dL (7-18) Creatinine 0.6 MG/DL (0.55-1.30) Estimat Glomerular Filtration Rate > 60 mL/min (>60) Glucose Level 140 MG/DL (74-106) H Calcium Level 7.8 MG/DL (8.5-10.1) L Total Bilirubin 0.8 MG/DL (0.2-1.0) Aspartate Amino Transf (AST/SGOT) 26 U/L (15-37) Alanine Aminotransferase (ALT/SGPT) 67 U/L (12-78) Alkaline Phosphatase 73 U/L (46-116) C-Reactive Protein, Quantitative 36.7 mg/dL (0.00-0.90) H Total Protein 5.4 G/DL (6.4-8.2) L Albumin 2.3 G/DL (3.4-5.0) L Globulin 3.1 g/dL Albumin/Globulin Ratio 0.7 (1.0-2.7) L Amylase Level 41 U/L (25-115) Lipase 89 U/L (73-393) Plan Problems: (1) Colon cancer (2) Pneumonia (3) Severe sepsis (4) Gallstone pancreatitis Assessment & Plan: 59-year-old male history of colon cancer chemo therapy resection doing well to recently developed arm pain nausea and vomiting. Identified to have severe acute gallstone pancreatitis. Abdomen tender but not in acute abdomen with peritonitis Currently no nausea vomiting leukocytosis lactic acidosis improving with resuscitation diet as tolerated IV fluids MRCP reviewed Trend labs We will follow with recommendations thank you for let me participate in patient' s care Given the severity of patient's acute severe gallstone pancreatitis would recommend cool down prior to cholecystectomy. Patient to have cholecystectomy but given the amount of pancreatic inflammation identified on CT and MRI would recommend allowing inflammation to settle and subside prior to surgical intervention. Patient can follow-up with his primary surgeon who performed multiple abdominal operations for his colon cancer to have procedure done or any surgeon within his network. Advance diet as tolerated. Okay to discharge from surgical standpoint. Pain management. Diet as tolerated Repeat CT identified. Acute severe pancreatitis small focus of potential necrosis unlikely infected. Continue antibiotics continue nonoperative management of acute severe pancreatitis Spoke to the daughter and the patient today. Recommend allowing acute inflammatory process to subside. And then can consider surgical intervention. Once improved okay for discharge outpatient follow-up mild subsegmental basilar atelectasis, left more pronounced than right. No acute basilar infiltrate. Extensive peripancreatic edema system with severe, acute pancreatitis. No clear focal glandular necrosis. No loculated fluid collection. No hemorrhage or gas. Mild extrahepatic biliary dilation. Enhancing gallbladder wall. No radiopaque gallstone. Recommend correlation for elevated biliary markers in addition to pancreatic enzymes. Renal cysts and hypodensities that are too small to characterize. No hydronephrosis. Transverse colonic resection with intact anastomosis. No bowel obstruction. The appendix is unremarkable. Aortoiliac atherosclerosis without aneurysm. No acute fracture. Mild thoracolumbar spondylosis. IMPRESSION: Acute pancreatitis. Distended gallbladder and CBD. No radiopaque gallstone, but recommend clinical/laboratory correlation. Incidental findings as above. Gallbladder demonstrates filling defects consistent with gallstones. The gallbladder wall is mildly thickened and mildly edematous. The common hepatic duct is mildly ectatic, measuring up to 9 mm in diameter. The common bile duct is normal in caliber. No intraluminal filling defect or obstructing stone is demonstrated. There is somewhat low insertion of the cystic duct into the common hepatic duct The pancreas is enlarged and edematous, and considerable phlegmon is seen within upper abdominal fat, similar in distribution to that described on prior CT scan. No discrete walled off fluid collection demonstrated. The pancreatic duct is normal in caliber. No focal liver lesion demonstrated. The spleen, adrenals are unremarkable. The kidneys demonstrate cysts bilaterally. The included upper pelvis appears unremarkable. Impression: Evidence of acute pancreatitis, also described on recent CT scan. No discrete fluid collection to suggest abscess or early pseudocyst formation Cholelithiasis. Mild gallbladder wall thickening. This could be related to the adjacent pancreatic inflammation, or could indicate acute cholecystitis. Correlate with clinical findings, consider nuclear medicine hepatobiliary scan if clinically indicated Ectatic common hepatic duct demonstrated, significance/etiology uncertain. Normal caliber common bile duct. No definite downstream obstructive lesion Incidental finding of bilateral renal cysts (5) Pain Assessment & Plan: hand fx noted ortho input appreciated abd pain stable kub ordered Yury Baxter Oct 16, 2019 14:15
[2019-10-16 16:00] VITALS: BP 148/84
--- NOTE | 2019-10-16 16:23 | General Progress Note ---
Assessment/Plan Assessment/Plan: Assessment - acute gallstone pancreatitis - 2.5 cm suspected early pancreatic necrosis - bowel distention / ileus - abd pain - cholelithiasis - leukocytosis - better - h/o colon CA Recommendations - abx - IVF - monitor labs - push po - eventual lap hieu Subjective Allergies: Coded Allergies: No Known Allergies (Unverified , 10/10/19) Subjective above noted d/w son at bedside patient c/o abd distention and pain CT noted Objective Last 24 Hour Vital Signs Date Time Temp Pulse Resp B/P (MAP) Pulse Ox O2 Delivery O2 Flow Rate FiO2 10/16/19 09:00 Room Air 10/16/19 08:00 98.2 97 20 130/75 (93) 97 10/16/19 04:00 98.0 95 19 136/73 (94) 96 10/16/19 00:00 97.3 80 19 138/83 (101) 96 10/15/19 21:00 Room Air 10/15/19 20:00 97.8 87 19 145/90 (108) 96 Intake and Output 10/15/19 10/16/19 19:00 07:00 Intake Total 800 ml Output Total 950 ml Balance 800 ml -950 ml Intake Oral 800 ml Output Urine Total 950 ml # Voids 4 3 # Bowel Movements 3 Laboratory Tests 10/16/19 06:00: White Blood Count 13.3H, Red Blood Count 3.75L, Hemoglobin 11.8L, Hematocrit 33.7L, Mean Corpuscular Volume 90, Mean Corpuscular Hemoglobin 31.5H, Mean Corpuscular Hemoglobin Concent 35.1, Red Cell Distribution Width 10.8L, Platelet Count 181, Mean Platelet Volume 6.9, Neutrophils (%) (Auto) 84.1H, Lymphocytes (%) (Auto) 9.1L, Monocytes (%) (Auto) 5.3, Eosinophils (%) (Auto) 0.9, Basophils (%) (Auto) 0.6, Erythrocyte Sedimentation Rate 51H, Prothrombin Time 12.1H, Prothromb Time International Ratio 1.1, Activated Partial Thromboplast Time 33, Sodium Level 134L, Potassium Level 3.1L, Chloride Level 101, Carbon Dioxide Level 23, Anion Gap 10, Blood Urea Nitrogen 7, Creatinine 0.6, Estimat Glomerular Filtration Rate > 60, Glucose Level 140H, Calcium Level 7.8L, Total Bilirubin 0.8, Aspartate Amino Transf (AST/SGOT) 26, Alanine Aminotransferase (ALT/SGPT) 67, Alkaline Phosphatase 73, C-Reactive Protein, Quantitative 36.7H, Total Protein 5.4L, Albumin 2.3L, Globulin 3.1, Albumin/ Globulin Ratio 0.7L, Amylase Level 41, Lipase 89 Height (Feet): 5 Height (Inches): 8.00 Weight (Pounds): 73 Objective WDWN man NCAT supple CTA RR abd soft,mildly distended, (+) epigastric TTP (-) edema non focal Eladio Ramos MD Oct 16, 2019 16:23
--- NOTE | 2019-10-16 18:00 | Progress Note ---
DATE: 10/16/2019 SUBJECTIVE: This is a 59-year-old male came with acute pancreatitis. The patient is still having abdominal pain. Nausea and vomiting is better, but abdomen is distended. Potassium is . OBJECTIVE: VITAL SIGNS: Blood pressure 130/75, pulse 97, temperature 98.2. CHEST: Bilaterally clear. CARDIOVASCULAR: Regular rhythm. ABDOMEN: Soft. EXTREMITIES: CCE. NEUROLOGICAL: Generalized weakness. LABORATORY DATA: White counts are 14,000, hemoglobin 12, hematocrit 33, platelets are 181. Chemistry panel, potassium 3.1, sodium 134. His amylase 41, lipase 49 is normal. ASSESSMENT: 1. Acute pancreatitis. 2. History of colon CA. PLAN: 1. GI is on case, ordering CT of abdomen. 2. The patient tolerating very little bit orally liquid food. 3. The patient is on pain medication and antibiotics. Ko Ortega M.D. DR: Milton JOB#: [id number] CC:
--- NOTE | 2019-10-16 19:45 | Consultation ---
DATE OF CONSULTATION: 10/16/2019 PAIN MANAGEMENT CONSULTATION CONSULTING PHYSICIAN: Abby Waller M.D. REFERRING PHYSICIAN: Ko Ortega M.D. PHYSICIAN CASH APPLICATIONS ASSOCIATE: Javier Kim CHIEF COMPLAINT: Abdominal pain. HISTORY OF PRESENT ILLNESS: This is a 59-year-old male who is being seen on the Med\Surg floor of [facility] for initial pain management consultation. The patient was admitted under the care of Dr. Ortega due to complaints of abdominal pain. He has a history of colon cancer. The pain is a constant acute pain, describing the pain as a pressure, worse 8/10, reduced to 5/10 with current medication regimen, which lasts about 3 hours. He is on Dilaudid 2 mg IV every 3 to 4 hours as needed, and again had relief with the medication, only lasting for about 3 hours. Due to this, we are consulted, so patient would have adequate pain control while here in the hospital. PAST MEDICAL HISTORY: Colon cancer, diabetes, hypertension. PAST SURGICAL HISTORY: Colostomy, reversal of the colostomy, removal of the cancer. SOCIAL HISTORY: Denies smoking tobacco, drinking alcohol, or drug abuse. ALLERGIES: No known drug allergies. MEDICATIONS: , metformin, and Flomax. REVIEW OF SYSTEMS: Denies rash, fever, chills, sweating, dizziness, drowsiness, blurred vision, ringing in ear, shortness of breath, chest pain, palpitations, or cough. No nausea, vomiting, diarrhea, or blood in stool or in the urine. No dysuria. He is complaining of abdominal pain. PHYSICAL EXAMINATION: GENERAL: Alert, awake, and oriented. VITAL SIGNS: Blood pressure 130/75, heart rate 97, oxygen saturation 97%, respiratory rate 20, temperature is 98.2 degrees Fahrenheit. HEENT: PERRLA. NECK: Range of motion is full in all directions. No tenderness to paracervical muscles. No adenopathy. LUNGS: Decreased breath sounds bilaterally. HEART: S1 and S2 regular. ABDOMEN: Tenderness to palpation with surgical scar noted on midline of abdominal area. BACK: Range of motion is decreased in flexion, extension. EXTREMITIES: Upper and lower extremity range of motion is decreased due to patient's condition. No cyanosis. No clubbing. No edema. Sensory is intact. Reflexes are not obtainable. No adenopathy. ASSESSMENT AND PLAN: This is a 59-year-old male with abdominal pain, pancreatitis, history of colon cancer. The patient will be changed to Dilaudid 1 mg IV every 2 hours as needed for severe pain. We will add parameters to hold opioids for oversedation or lethargy or systolic blood pressure below 90 or diastolic blood pressure over 60, respiratory rate below 12, oxygen saturation below 92%, as well as add Narcan 0.2 mg IV every 2 minutes as needed for respiratory depression. The patient was discussed with Dr. Waller and Dr. Waller concurred. We will follow the patient. Thank you very much for the courtesy of this consultation. Abby Waller M.D. JULIOCESAR Kim DR: JONY JOB#: [id number] CC:
[2019-10-16] MEDS: Dyna-Hex 2% Top Sol 2oz TOPIC SCH (20:07)
[2019-10-16] MEDS: Miralax 17gm pkt ORAL SCH (20:08)
[2019-10-16 20:13] VITALS: BP 141/78
[2019-10-17 00:18] VITALS: BP 128/69
[2019-10-17 04:00] VITALS: BP 144/74
[2019-10-17] MEDS: NovoLOG Insulin Flexpen SUBQ SCH ×2 (06:06→18:21)
[2019-10-17 07:35] VITALS: BP 160/83
[2019-10-17 07:43] LABS: ANION GAP 12 mmol/L (5-15); BLOOD UREA NITROGEN 4 mg/dL (7-18); CALCIUM 8.1 MG/DL (8.5-10.1); CARBON DIOXIDE 23 MMOL/L (21-32); CHLORIDE 97 MMOL/L (98-107); CREATININE 0.6 MG/DL (0.55-1.30); SODIUM 132 MMOL/L (136-145)
[2019-10-17 08:23] LABS: POTASSIUM 2.7 MMOL/L (3.5-5.1)
[2019-10-17] MEDS: Lactobacillus-GG tablet ORAL SCH ×3 (08:33→17:09)
[2019-10-17] MEDS: Pantoprazole Inj IVP SCH ×2 (08:33→20:03)
[2019-10-17] MEDS ORDERED: Heparin1,000 units/500ml Premix(Conc:2 units/ml) IV PRN (10:30)
[2019-10-17] MEDS ORDERED: Lidocaine 1% Plain 30 ml INJ PRN (10:30)
--- NOTE | 2019-10-17 10:57 | General Progress Note ---
Assessment/Plan Assessment/Plan: Assessment - acute gallstone pancreatitis - 2.5 cm suspected early pancreatic necrosis - bowel distention / ileus - abd pain - cholelithiasis - leukocytosis - better - h/o colon CA Recommendations - abx - IVF - monitor labs -NGT -picc line for possible TPN - eventual lap hieu Subjective ROS Limited/Unobtainable: Yes Allergies: Coded Allergies: No Known Allergies (Unverified , 10/10/19) Objective Last 24 Hour Vital Signs Date Time Temp Pulse Resp B/P (MAP) Pulse Ox O2 Delivery O2 Flow Rate FiO2 10/17/19 09:00 Room Air 10/17/19 08:34 89 160/83 10/17/19 07:35 98.1 89 16 160/83 (108) 94 10/17/19 04:59 97.6 10/17/19 04:00 97.9 86 19 144/74 (97) 96 10/17/19 00:18 97.6 90 18 128/69 (88) 95 10/16/19 20:26 Room Air 10/16/19 20:13 98.0 97 18 141/78 (99) 94 10/16/19 16:00 97.1 101 20 148/84 (105) 96 Intake and Output 10/16/19 10/17/19 19:00 07:00 Intake Total 750 ml 1300 ml Output Total 450 ml Balance 300 ml 1300 ml IV Total 550 ml 1300 ml Other 200 ml Output Urine Total 450 ml # Voids 2 3 # Bowel Movements 1 Laboratory Tests 10/17/19 05:00: Sodium Level 132L, Potassium Level 2.7*L, Chloride Level 97L, Carbon Dioxide Level 23, Anion Gap 12, Blood Urea Nitrogen 4L, Creatinine 0.6, Estimat Glomerular Filtration Rate > 60, Glucose Level 131H, Calcium Level 8.1L Height (Feet): 5 Height (Inches): 8.00 Weight (Pounds): 160 General Appearance: alert EENT: normal ENT inspection Neck: supple Cardiovascular: normal rate Respiratory/Chest: decreased breath sounds Abdomen: soft, hypoactive bowel sounds, tender Extremities: non-tender Ken Justin MD Oct 17, 2019 10:57
--- NOTE | 2019-10-17 11:34 | Infectious Diseases Prog Note ---
Assessment/Plan Assessment/Plan antibiotics : ceftriaxone A 1. e.coli sepsis 2. acute pancreatitis improving 3. diabetes mellitus 4. hypertension 5. colon cancer P 1. continue ceftriaxone 2 more days 2. will follow up cultures Subjective ROS Limited/Unobtainable: Yes Allergies: Coded Allergies: No Known Allergies (Unverified , 10/10/19) Objective Last 24 Hour Vital Signs Date Time Temp Pulse Resp B/P (MAP) Pulse Ox O2 Delivery O2 Flow Rate FiO2 10/17/19 09:00 Room Air 10/17/19 08:34 89 160/83 10/17/19 07:35 98.1 89 16 160/83 (108) 94 10/17/19 04:59 97.6 10/17/19 04:00 97.9 86 19 144/74 (97) 96 10/17/19 00:18 97.6 90 18 128/69 (88) 95 10/16/19 20:26 Room Air 10/16/19 20:13 98.0 97 18 141/78 (99) 94 10/16/19 16:00 97.1 101 20 148/84 (105) 96 Height (Feet): 5 Height (Inches): 8.00 Weight (Pounds): 160 Respiratory/Chest: lungs clear Cardiovascular: normal rate, regular rhythm, no gallop/murmur Abdomen: soft, non tender Extremities: no edema, other - left arm ecchymoses decreased, right subclavian catheter Laboratory Tests Test 10/17/19 05:00 Sodium Level 132 MMOL/L (136-145) L Potassium Level 2.7 MMOL/L (3.5-5.1) *L Chloride Level 97 MMOL/L (98-107) L Carbon Dioxide Level 23 MMOL/L (21-32) Anion Gap 12 mmol/L (5-15) Blood Urea Nitrogen 4 mg/dL (7-18) L Creatinine 0.6 MG/DL (0.55-1.30) Estimat Glomerular Filtration Rate > 60 mL/min (>60) Glucose Level 131 MG/DL (74-106) H Uric Acid Pending Calcium Level 8.1 MG/DL (8.5-10.1) L Phosphorus Level Pending Magnesium Level Pending Iron Level Pending Unsaturated Iron Binding Pending Ferritin Pending Total Bilirubin Pending Direct Bilirubin Pending Gamma Glutamyl Transpeptidase Pending Aspartate Amino Transf (AST/SGOT) Pending Alanine Aminotransferase (ALT/SGPT) Pending Alkaline Phosphatase Pending Total Protein Pending Albumin Pending Vitamin B12 Level Pending Folate Pending Current Medications Medications (Trade) Dose Ordered Sig/Freida Route PRN Reason Start Time Stop Time Status Last Admin Dose Admin Acetaminophen (Tylenol) 500 mg Q6H PRN ORAL Temp >100.5 10/12/19 14:30 11/11/19 14:29 10/12/19 14:37 Acetaminophen (Tylenol) 500 mg Q6H PRN ORAL Mild Pain (Pain Scale 1-3) 10/12/19 14:30 11/11/19 14:29 Al Hydroxide/Mg Hydroxide (Mylanta) 30 ml Q8H PRN ORAL Gas/abdominal pain 10/12/19 22:00 11/11/19 21:59 10/13/19 08:35 Amlodipine Besylate (Norvasc) 10 mg DAILY ORAL 10/16/19 09:00 11/15/19 08:59 10/17/19 08:34 Barium Sulfate (Readi-Cat 2) 450 ml NOW PRN ORAL Radiology Procedure 10/15/19 17:45 10/17/19 17:35 Ceftriaxone Sodium 1 gm/ Dextrose 55 ml @ 110 mls/hr Q24H IVPB 10/15/19 11:30 10/22/19 11:29 10/16/19 11:09 Chlorhexidine Gluconate (Janett-Hex 2%) 1 applic DAILY@1999 TOPIC 10/13/19 20:00 01/11/20 19:59 10/16/19 20:07 Chlorhexidine Gluconate (Janett-Hex 2%) 1 applic DAILY@1999 TOPIC 10/17/19 20:00 01/15/20 19:59 Clonidine HCl (Catapres Tab) 0.1 mg Q6H PRN ORAL Blood Pressure >160/90 10/15/19 10:00 01/13/20 09:59 10/15/19 10:18 Dextrose (Dextrose 50%) 25 ml Q30M PRN IV Hypoglycemia 10/11/19 14:00 01/09/20 10:59 Dextrose (Dextrose 50%) 50 ml Q30M PRN IV Hypoglycemia 10/11/19 14:00 01/09/20 10:59 Heparin Sodium/ Sodium Chloride (Heparin 1000 units/500ml Premix) 1,000 unit PRN PRN IV PICC PLACEMENT ONLY 10/17/19 10:30 Hydromorphone HCl (Dilaudid) 1 mg Q2H PRN IVP Severe Pain 10/16/19 12:15 10/21/19 11:14 10/17/19 09:55 Insulin Aspart (NovoLOG) BIAC SUBQ 10/11/19 16:30 01/09/20 11:29 10/15/19 18:07 Iohexol (OMNIPAQUE-300 100ml) 100 ml NOW PRN INJ Radiology Procedure 10/15/19 17:45 10/17/19 17:35 Lactobacillus Acidophilus (Culturelle) 1 tab THREE TIMES A DAY ORAL 10/15/19 13:00 01/13/20 12:59 10/17/19 08:33 Lidocaine HCl (Xylocaine 1% 30ml) 30 ml PRN PRN INJ PICC PLACEMENT ONLY 10/17/19 10:30 Naloxone HCl (Narcan) 0.2 mg Q2M PRN IVP respritory depression 10/16/19 12:15 01/14/20 12:14 Ondansetron HCl (Zofran) 4 mg Q4H PRN IVP Nausea & Vomiting 10/11/19 17:30 11/09/19 17:29 10/17/19 07:33 Pantoprazole (Protonix) 40 mg DAILY IVP 10/12/19 09:00 11/10/19 08:59 10/17/19 08:33 Polyethylene Glycol (Miralax) 17 gm BEDTIME ORAL 10/14/19 21:00 11/13/19 20:59 10/16/19 20:08 Potassium Chloride 100 ml @ 100 mls/hr Q1H IV 10/17/19 11:30 10/17/19 15:29 Sodium Chloride 1,000 ml @ 50 mls/hr Q20H IV 10/17/19 11:30 11/11/19 11:29 Mario Sawyer MD Oct 17, 2019 11:34
[2019-10-17] MEDS: cefTRIAXone 1 GM in D5W 55 ML IVPB SCH (11:52)
[2019-10-17 12:00] VITALS: BP 138/78
[2019-10-17 12:08] LABS: ALANINE AMINOTRANSFERASE 69 U/L (12-78); ALBUMIN 2.5 G/DL (3.4-5.0); ALKALINE PHOSPHATASE 87 U/L (46-116); ASPARTATE AMINO TRANSFERASE 29 U/L (15-37); BILIRUBIN,DIRECT 0.2 MG/DL (0.0-0.3); BILIRUBIN,TOTAL 0.7 MG/DL (0.2-1.0); GAMMA GLUTAMYL TRANSPEPTIDASE 98 U/L (5-85)
[2019-10-17 12:14] LABS: FERRITIN 693 NG/ML (8-388); PHOSPHORUS 1.7 MG/DL (2.5-4.9)
[2019-10-17 13:02] LABS: % IRON SATURATION 16 % (15-50); IRON 30 ug/dL (50-175); TOTAL IRON BINDING CAPACITY 183 ug/dL (250-450)
--- NOTE | 2019-10-17 13:42 | Consultation ---
Consult Note Consult Note I am asked to evaluate the patient at the request of Dr. Ortega for fluid and electrolyte management Patient is a German speaking gentleman This is a 59-year-old male with history of colon cancer status post prior colostomy multiple abdominal surgeries resection chemotherapy was been doing well until recently when developed pain nausea and vomiting. Came [facility] for evaluation identified to have severe pancreatitis. Admitted further care management. Surgery called to eval and assist with care. Patient seen, patient evaluate, chart reviewed. Patient generalized abdominal pain. Labs noted. Exam as below. States pain 6 out of 10 without radiation. Cramping. Abnormal labs. Lactic acidosis. CT as below. Allergies: No Known Allergies (Unverified , 10/10/19) Contact w/high risk pt: No Experienced COVID-19 symptoms?: No Atorvastatin Calcium* (Atorvastatin Calcium*), 20 MG ORAL BEDTIME, (Reported) Metformin Hcl* (Metformin Hcl*), 500 MG ORAL TWICE A DAY, (Reported) Tamsulosin HCl (Flomax), 0.4 MG ORAL BID, (Reported) Past Medical/Surgical History: Colon cancer, previous surgeries and chemotherapy Diabetes mellitus Hypertension Vital Signs Date Time Temp Pulse Resp B/P (MAP) Pulse Ox O2 Delivery O2 Flow Rate FiO2 10/10/19 16:13 98.2 59 18 169/73 99 Room Air Sp02 EP Interpretation: reviewed, normal General Appearance: alert, , mild distress Head: normocephalic, atraumatic Eyes: bilateral eye normal inspection, bilateral eye PERRL ENT: hearing grossly normal, normal pharynx, no angioedema, normal voice Neck: full range of motion, supple/symm/no masses Respiratory: Decreased breath sounds over the bases tachycardia Cardiovascular #1: regular rate, rhythm, tachycardic Gastrointestinal: normal bowel sounds, soft, medical group distended, no guarding, no rebound, tenderness, other - midline surgical scar noted Rectal: deferred Genitourinary: normal inspection, no CVA tenderness Musculoskeletal: back normal, normal range of motion, gait/station normal, non- tender Neurologic: alert, motor strength/tone normal, oriented x3, sensory intact, responsive, speech normal Skin: no rash Lymphatic: no adenopathy Assessment/Plan Severe hypokalemia Hyponatremia Anemia Hypertension History of diabetes mellitus Colon cancer Pneumonia Sepsis Gallstone pancreatitis BPH N.p.o. IV fluid: Adjust to D5 normal saline with KCl 50 cc an hour IV Protonix NG to suction Clonidine patch for blood pressure PRN IV hydralazine for high blood pressure Monitor electrolytes Magnesium sulfate IV for low magnesium Sodium phosphate IV for low phosphorus Per orders I spent an additional 36 minutes on review of medical records including prior hospital records,consult notes, progress notes, procedures ,imaging labs, hemodynamics, and other clinical documentation. Over 35 min Fantasma Cast MD Oct 17, 2019 13:42
--- NOTE | 2019-10-17 13:49 | Diagnostic Imaging Report ---
Indication: Post nasogastric tube placement Technique: Supine view of the abdomen Comparison: [employer] Of [employer] image from abdomen pelvis CT dated 10/16/2019 Findings: There is a nasogastric tube, tip coiled in the gastric fundus in good position. Considerable gas is seen in upper limits of normal caliber large and small bowel loops. Degree of distention appears to have decreased from that exam. Impression: Satisfactory nasogastric intubation Gas-filled but nondilated large and small bowel, likely ileus given known history of pancreatitis. This has improved since previous day's CT scan
--- NOTE | 2019-10-17 14:27 | Surgery Progress Note ---
Surgery Progress Note Subjective Additional Comments Had episode of emesis. Has since been made n.p.o. and NG tube placed. No output since NG tube placed. Pending labs for today. Complaining of abdominal pain but stable. Passing flatus small BM yesterday. Objective Last 24 Hour Vital Signs Date Time Temp Pulse Resp B/P (MAP) Pulse Ox O2 Delivery O2 Flow Rate FiO2 10/17/19 12:00 97.9 104 18 138/78 (98) 96 10/17/19 09:00 Room Air 10/17/19 08:34 89 160/83 10/17/19 07:35 98.1 89 16 160/83 (108) 94 10/17/19 04:59 97.6 10/17/19 04:00 97.9 86 19 144/74 (97) 96 10/17/19 00:18 97.6 90 18 128/69 (88) 95 10/16/19 20:26 Room Air 10/16/19 20:13 98.0 97 18 141/78 (99) 94 10/16/19 16:00 97.1 101 20 148/84 (105) 96 I&O Intake and Output 10/16/19 10/17/19 19:00 07:00 Intake Total 750 ml 1300 ml Output Total 450 ml Balance 300 ml 1300 ml IV Total 550 ml 1300 ml Other 200 ml Output Urine Total 450 ml # Voids 2 3 # Bowel Movements 1 Cardiovascular: RSR Respiratory: clear Abdomen: soft, distended, tenderness, present bowel sounds Extremities: no edema, no tenderness, no cyanosis Laboratory Tests Test 10/17/19 05:00 Sodium Level 132 MMOL/L (136-145) L Potassium Level 2.7 MMOL/L (3.5-5.1) *L Chloride Level 97 MMOL/L (98-107) L Carbon Dioxide Level 23 MMOL/L (21-32) Anion Gap 12 mmol/L (5-15) Blood Urea Nitrogen 4 mg/dL (7-18) L Creatinine 0.6 MG/DL (0.55-1.30) Estimat Glomerular Filtration Rate > 60 mL/min (>60) Glucose Level 131 MG/DL (74-106) H Uric Acid 3.5 MG/DL (2.6-7.2) Calcium Level 8.1 MG/DL (8.5-10.1) L Phosphorus Level 1.7 MG/DL (2.5-4.9) L Magnesium Level 1.6 MG/DL (1.8-2.4) L Iron Level 30 ug/dL (50-175) L Total Iron Binding Capacity 183 ug/dL (250-450) L Percent Iron Saturation 16 % (15-50) Unsaturated Iron Binding 153 ug/dL (112-346) Ferritin 693 NG/ML (8-388) H Total Bilirubin 0.7 MG/DL (0.2-1.0) Direct Bilirubin 0.2 MG/DL (0.0-0.3) Gamma Glutamyl Transpeptidase 98 U/L (5-85) H Aspartate Amino Transf (AST/SGOT) 29 U/L (15-37) Alanine Aminotransferase (ALT/SGPT) 69 U/L (12-78) Alkaline Phosphatase 87 U/L (46-116) Total Protein 5.5 G/DL (6.4-8.2) L Albumin 2.5 G/DL (3.4-5.0) L Vitamin B12 Level 1698 PG/ML (193-986) H Folate 20.5 NG/ML (8.6-58.9) Plan Problems: (1) Colon cancer (2) Pneumonia (3) Severe sepsis (4) Gallstone pancreatitis Assessment & Plan: 59-year-old male history of colon cancer chemo therapy resection doing well to recently developed arm pain nausea and vomiting. Identified to have severe acute gallstone pancreatitis. Abdomen tender but not in acute abdomen with peritonitis Currently no nausea vomiting leukocytosis lactic acidosis improving with resuscitation diet as tolerated IV fluids MRCP reviewed Trend labs We will follow with recommendations thank you for let me participate in patient' s care Given the severity of patient's acute severe gallstone pancreatitis would recommend cool down prior to cholecystectomy. Patient to have cholecystectomy but given the amount of pancreatic inflammation identified on CT and MRI would recommend allowing inflammation to settle and subside prior to surgical intervention. Patient can follow-up with his primary surgeon who performed multiple abdominal operations for his colon cancer to have procedure done or any surgeon within his network. Advance diet as tolerated. Okay to discharge from surgical standpoint. Pain management. Diet as tolerated Repeat CT identified. Acute severe pancreatitis small focus of potential necrosis unlikely infected. Continue antibiotics continue nonoperative management of acute severe pancreatitis Spoke to the daughter and the patient today. Recommend allowing acute inflammatory process to subside. And then can consider surgical intervention. Once improved okay for discharge outpatient follow-up Episode of emesis since remain n.p.o. with NG tube. KUB reviewed by myself. Likely minimal ileus. Discussed with GI. Continue NG decompression for now. Once improved will DC NG tube and resume oral diet. mild subsegmental basilar atelectasis, left more pronounced than right. No acute basilar infiltrate. Extensive peripancreatic edema system with severe, acute pancreatitis. No clear focal glandular necrosis. No loculated fluid collection. No hemorrhage or gas. Mild extrahepatic biliary dilation. Enhancing gallbladder wall. No radiopaque gallstone. Recommend correlation for elevated biliary markers in addition to pancreatic enzymes. Renal cysts and hypodensities that are too small to characterize. No hydronephrosis. Transverse colonic resection with intact anastomosis. No bowel obstruction. The appendix is unremarkable. Aortoiliac atherosclerosis without aneurysm. No acute fracture. Mild thoracolumbar spondylosis. IMPRESSION: Acute pancreatitis. Distended gallbladder and CBD. No radiopaque gallstone, but recommend clinical/laboratory correlation. Incidental findings as above. Gallbladder demonstrates filling defects consistent with gallstones. The gallbladder wall is mildly thickened and mildly edematous. The common hepatic duct is mildly ectatic, measuring up to 9 mm in diameter. The common bile duct is normal in caliber. No intraluminal filling defect or obstructing stone is demonstrated. There is somewhat low insertion of the cystic duct into the common hepatic duct The pancreas is enlarged and edematous, and considerable phlegmon is seen within upper abdominal fat, similar in distribution to that described on prior CT scan. No discrete walled off fluid collection demonstrated. The pancreatic duct is normal in caliber. No focal liver lesion demonstrated. The spleen, adrenals are unremarkable. The kidneys demonstrate cysts bilaterally. The included upper pelvis appears unremarkable. Impression: Evidence of acute pancreatitis, also described on recent CT scan. No discrete fluid collection to suggest abscess or early pseudocyst formation Cholelithiasis. Mild gallbladder wall thickening. This could be related to the adjacent pancreatic inflammation, or could indicate acute cholecystitis. Correlate with clinical findings, consider nuclear medicine hepatobiliary scan if clinically indicated Ectatic common hepatic duct demonstrated, significance/etiology uncertain. Normal caliber common bile duct. No definite downstream obstructive lesion Incidental finding of bilateral renal cysts (5) Pain Assessment & Plan: hand fx noted ortho input appreciated abd pain stable kub ordered and noted Benyamini,Yury Oct 17, 2019 14:27
[2019-10-17] MEDS ORDERED: Sodium Phosphate 30 MM in NS 275 ML IVPB ONE (15:00)
[2019-10-17 16:00] VITALS: BP 138/85
--- NOTE | 2019-10-17 16:59 | Brief Operative Note ---
Immediate Post Operative Note Operative Note Pre-op Diagnosis: needs central IV access Procedure: PICC Post-op Diagnosis: same as pre-op Surgeon: Edwina Watkins Anesthesia: local Specimen: none Complications: none Fluids: none Implant(s) used?: No Rafiq Watkins MD Oct 17, 2019 16:59
--- NOTE | 2019-10-17 16:59 | Pre-Procedure Note/Attestation ---
Pre-Procedure Note/Attestation Complete Prior to Procedure Planned Procedure: not applicable Procedure Narrative: PICC Indications for Procedure Pre-Operative Diagnosis: needs central IV access Attestation I attest that I discussed the nature of the procedure; its benefits; risks and complications; and alternatives (and the risks and benefits of such alternatives ), prior to the procedure, with the patient (or the patient's legal sales donor recruitment representative). I attest that, if there was a reasonable possibility of needing a blood transfusion, the patient (or the patient's legal sales donor recruitment representative) was given the [facility] standardized written summary, pursuant to the [place] Blood Safety Act ([place] Health and Safety Code # 1645, as amended). I attest that I re-evaluated the patient just prior to the surgery and that there has been no change in the patient's H&P, except as documented below: Rafiq Ace MD Oct 17, 2019 16:59
[2019-10-17] MEDS ORDERED: Enalaprilat 2.5mg/2ml Inj IV PRN (17:00)
--- NOTE | 2019-10-17 17:20 | Diagnostic Imaging Report ---
Indications: Needs long-term IV access Technique: Ultrasound confirms patent compressible right basilic vein. Total sterile technique, including sterile probe cover and sterile gel, hat, mask, sterile gown, large sterile drape, and preparation with 2% chlorhexidine utilized. Local anesthesia with 1% lidocaine. Under real-time ultrasound guidance, puncture some vein using 21-gauge needle, documented and archived, passage 0.018 guidewire under direct fluoroscopy, which was used to determine appropriate catheter length, exchange for 4 Turkmen peel-away sheath. 4 Turkmen Bard dual-lumen power PICC cut to 40 cm. It was inserted through the peel-away sheath. Peel-away sheath and guidewire removed. Catheter fixed to the skin. Both catheter ports aspirated and flushed. Patient tolerated procedure well, without immediate complication. Digital radiograph documents satisfactory catheter tip position, at the cavoatrial junction. Total fluoroscopy time 23.8 seconds. Total dose area product 0.0845 mGym2 Total number of images: 1 Impression: Successful placement of right arm PICC under sonographic and fluoroscopic guidance, as described above.
--- NOTE | 2019-10-17 17:47 | General Progress Note ---
Assessment/Plan Assessment/Plan: (1) Abdominal pain (2) Pancreatitis (3) H/o colon cancer (4) Ileus Patient to be continued on Dilaudid as needed D/w Dr. Waller and he concurred. Subjective Date patient seen: Oct 17, 2019 Time patient seen: 05:00 - pm Allergies: Coded Allergies: No Known Allergies (Unverified , 10/10/19) Subjective REVIEW OF SYSTEMS: Denies rash, fever, chills, sweating, dizziness, drowsiness, blurred vision, ringing in ear, shortness of breath, chest pain, palpitations, or cough. No nausea, vomiting, diarrhea, or blood in stool or in the urine. No dysuria. He is complaining of abdominal pain. SUBJECTIVE: Patient is in bed NG tube in place found to have ileus. Still has pain which has been tolerated on the Dilaudid. Using 9 doses in the last 24hrs. Objective Last 24 Hour Vital Signs Date Time Temp Pulse Resp B/P (MAP) Pulse Ox O2 Delivery O2 Flow Rate FiO2 10/17/19 16:00 97.9 111 17 138/85 (102) 95 10/17/19 15:09 138/78 10/17/19 12:00 97.9 104 18 138/78 (98) 96 10/17/19 09:00 Room Air 10/17/19 08:34 89 160/83 10/17/19 07:35 98.1 89 16 160/83 (108) 94 10/17/19 04:59 97.6 10/17/19 04:00 97.9 86 19 144/74 (97) 96 10/17/19 00:18 97.6 90 18 128/69 (88) 95 10/16/19 20:26 Room Air 10/16/19 20:13 98.0 97 18 141/78 (99) 94 Intake and Output 10/16/19 10/17/19 19:00 07:00 Intake Total 750 ml 1300 ml Output Total 450 ml Balance 300 ml 1300 ml IV Total 550 ml 1300 ml Other 200 ml Output Urine Total 450 ml # Voids 2 3 # Bowel Movements 1 Laboratory Tests 10/17/19 05:00: Sodium Level 132L, Potassium Level 2.7*L, Chloride Level 97L, Carbon Dioxide Level 23, Anion Gap 12, Blood Urea Nitrogen 4L, Creatinine 0.6, Estimat Glomerular Filtration Rate > 60, Glucose Level 131H, Uric Acid 3.5, Calcium Level 8.1L, Phosphorus Level 1.7L, Magnesium Level 1.6L, Iron Level 30L, Total Iron Binding Capacity 183L, Percent Iron Saturation 16, Unsaturated Iron Binding 153, Ferritin 693H, Total Bilirubin 0.7, Direct Bilirubin 0.2, Gamma Glutamyl Transpeptidase 98H, Aspartate Amino Transf (AST/SGOT) 29, Alanine Aminotransferase (ALT/SGPT) 69, Alkaline Phosphatase 87, Total Protein 5.5L, Albumin 2.5L, Vitamin B12 Level 1698H, Folate 20.5 Height (Feet): 5 Height (Inches): 8.00 Weight (Pounds): 160 Objective GENERAL: Alert, awake, and oriented. LUNGS: Decreased breath sounds bilaterally. HEART: S1 and S2 regular. ABDOMEN: Tenderness to palpation with surgical scar noted on midline of abdominal area. EXTREMITIES: No cyanosis. No clubbing. No edema. NEURO: No changes. Tucker Zamora Oct 17, 2019 17:47
--- NOTE | 2019-10-17 18:45 | Progress Note ---
DATE: 10/17/2019 SUBJECTIVE: This is a 59-year-old male, currently sitting in the bed. Daughter is at the bedside. OBJECTIVE: VITAL SIGNS: His blood pressure is 138/85, pulse 111. No fever. CHEST: Bilaterally clear. CARDIOVASCULAR: Regular rhythm. ABDOMEN: Soft. Abdomen looks slightly distended. EXTREMITIES: No edema. LABORATORY DATA: Patient has no labs today. ASSESSMENT: 1. Recurrent abdominal pain. 2. Acute pancreatitis. 3. Hypokalemia. PLAN: We will currently continue NG tube suction. GI is on consult. We are ordering CT of abdomen again. NPO. On TPN. Ko Ortega M.D. DR: DAVID JOB#: [id number] CC:
[2019-10-17 20:00] VITALS: BP 144/72
[2019-10-17] MEDS: Dyna-Hex 2% Top Sol 2oz TOPIC SCH (20:03)
[2019-10-17] MEDS: Miralax 17gm pkt ORAL SCH (20:04)
[2019-10-18] VITALS: BP 145/74
[2019-10-18 04:00] VITALS: BP 136/73
[2019-10-18] MEDS: NovoLOG Insulin Flexpen SUBQ SCH ×2 (06:09→17:06)
[2019-10-18 06:24] LABS: BASOPHILS % (AUTO) 0.2 % (0.0-2.0); EOSINOPHILS % (AUTO) 0.5 % (0.0-3.0); HEMATOCRIT 31.8 % (42.0-52.0); HEMOGLOBIN 11.3 G/DL (14.2-18.0); LYMPHOCYTES % (AUTO) 9.9 % (20.0-45.0); MEAN CORPUSCULAR VOLUME 89 FL (80-99); MONOCYTES % (AUTO) 5.3 % (1.0-10.0); NEUTROPHILS % (AUTO) 84.1 % (45.0-75.0); PLATELET COUNT 192 K/UL (150-450); RED BLOOD COUNT 3.55 M/UL (4.70-6.10); RED CELL DISTRIBUTION WIDTH 10.9 % (11.6-14.8); WHITE BLOOD COUNT 15.3 K/UL (4.8-10.8)
[2019-10-18 06:39] LABS: ALANINE AMINOTRANSFERASE 45 U/L (12-78); ALBUMIN 2.4 G/DL (3.4-5.0); ALBUMIN/GLOBULIN RATIO 0.7 (1.0-2.7); ALKALINE PHOSPHATASE 78 U/L (46-116); AMYLASE 32 U/L (25-115); ANION GAP 9 mmol/L (5-15); ASPARTATE AMINO TRANSFERASE 22 U/L (15-37); BILIRUBIN,TOTAL 0.6 MG/DL (0.2-1.0); BLOOD UREA NITROGEN 6 mg/dL (7-18); CALCIUM 7.7 MG/DL (8.5-10.1); CARBON DIOXIDE 28 MMOL/L (21-32); CHLORIDE 97 MMOL/L (98-107); CREATININE 0.6 MG/DL (0.55-1.30); POTASSIUM 2.9 MMOL/L (3.5-5.1); SODIUM 134 MMOL/L (136-145)
[2019-10-18 08:00] VITALS: BP 140/80
[2019-10-18] MEDS: Potassium Phosphate 15mm/250ml 250 ML IVPB SCH ×2 (08:23→13:36)
[2019-10-18] MEDS: Pantoprazole Inj IVP SCH ×2 (08:23→21:09)
--- NOTE | 2019-10-18 08:46 | General Progress Note ---
Assessment/Plan Assessment/Plan: (1) Abdominal pain (2) Pancreatitis (3) H/o colon cancer (4) Ileus Patient to be continued on Dilaudid changed to Q3H as needed D/w Dr. Waller and he concurred. Subjective Date patient seen: Oct 18, 2019 Time patient seen: 08:00 - am Allergies: Coded Allergies: No Known Allergies (Unverified , 10/10/19) Subjective REVIEW OF SYSTEMS: Denies rash, fever, chills, sweating, dizziness, drowsiness, blurred vision, ringing in ear, shortness of breath, chest pain, palpitations, or cough. No nausea, vomiting, diarrhea, or blood in stool or in the urine. No dysuria. He is complaining of abdominal pain. SUBJECTIVE: Patient was started on TPN, NG tube in place. Still c/o pain which has been tolerated on the Dilaudid. Objective Last 24 Hour Vital Signs Date Time Temp Pulse Resp B/P (MAP) Pulse Ox O2 Delivery O2 Flow Rate FiO2 10/18/19 04:00 97.7 93 20 136/73 (94) 95 10/18/19 00:00 98.6 102 24 145/74 (97) 94 10/17/19 20:47 Room Air 10/17/19 20:00 97.9 104 22 144/72 (96) 94 10/17/19 16:00 97.9 111 17 138/85 (102) 95 10/17/19 15:09 138/78 10/17/19 12:00 97.9 104 18 138/78 (98) 96 10/17/19 09:00 Room Air Intake and Output 10/17/19 10/18/19 19:00 07:00 Intake Total 702.5 ml 560 ml Output Total 475 ml 1485 ml Balance 227.5 ml -925 ml IV Total 702.5 ml 200 ml Other 360 ml Output Urine Total 400 ml 1400 ml Gastric Drainage Total 75 ml 85 ml # Voids 7 Laboratory Tests 10/18/19 04:00: White Blood Count 15.3H, Red Blood Count 3.55L, Hemoglobin 11.3L, Hematocrit 31.8L, Mean Corpuscular Volume 89, Mean Corpuscular Hemoglobin 31.8H, Mean Corpuscular Hemoglobin Concent 35.6, Red Cell Distribution Width 10.9L, Platelet Count 192, Mean Platelet Volume 6.5, Neutrophils (%) (Auto) 84.1H, Lymphocytes (%) (Auto) 9.9L, Monocytes (%) (Auto) 5.3, Eosinophils (%) (Auto) 0.5, Basophils (%) (Auto) 0.2, Sodium Level 134L, Potassium Level 2.9L, Chloride Level 97L, Carbon Dioxide Level 28, Anion Gap 9, Blood Urea Nitrogen 6L , Creatinine 0.6, Estimat Glomerular Filtration Rate > 60, Glucose Level 140H, Uric Acid 3.5, Calcium Level 7.7L, Phosphorus Level 2.0L, Magnesium Level 1.9, Total Bilirubin 0.6, Aspartate Amino Transf (AST/SGOT) 22, Alanine Aminotransferase (ALT/SGPT) 45, Alkaline Phosphatase 78, Total Protein 5.8L, Albumin 2.4L, Globulin 3.4, Albumin/Globulin Ratio 0.7L, Amylase Level 32, Lipase 94, Carcinoembryonic Antigen [Pending] Height (Feet): 5 Height (Inches): 8.00 Weight (Pounds): 160 Objective GENERAL: Alert, awake, and oriented. LUNGS: Decreased breath sounds bilaterally. HEART: S1 and S2 regular. ABDOMEN: Tenderness to palpation with surgical scar noted on midline of abdominal area. EXTREMITIES: No cyanosis. No clubbing. No edema. NEURO: No changes. Tucker Zamora Oct 18, 2019 08:46
[2019-10-18] MEDS: Lactobacillus-GG tablet ORAL SCH ×3 (09:00→17:04)
--- NOTE | 2019-10-18 10:16 | General Progress Note ---
Assessment/Plan Assessment/Plan: Assessment - acute gallstone pancreatitis - 2.5 cm suspected early pancreatic necrosis - bowel distention / ileus - abd pain - cholelithiasis - leukocytosis - better - h/o colon CA Recommendations - abx - IVF - monitor labs -NGT>> will dc -start clears -bowel regimen -picc line for possible TPN - eventual lap hieu Subjective ROS Limited/Unobtainable: Yes Allergies: Coded Allergies: No Known Allergies (Unverified , 10/10/19) Objective Last 24 Hour Vital Signs Date Time Temp Pulse Resp B/P (MAP) Pulse Ox O2 Delivery O2 Flow Rate FiO2 10/18/19 04:00 97.7 93 20 136/73 (94) 95 10/18/19 00:00 98.6 102 24 145/74 (97) 94 10/17/19 20:47 Room Air 10/17/19 20:00 97.9 104 22 144/72 (96) 94 10/17/19 16:00 97.9 111 17 138/85 (102) 95 10/17/19 15:09 138/78 10/17/19 12:00 97.9 104 18 138/78 (98) 96 Intake and Output 10/17/19 10/18/19 19:00 07:00 Intake Total 702.5 ml 560 ml Output Total 475 ml 1485 ml Balance 227.5 ml -925 ml IV Total 702.5 ml 200 ml Other 360 ml Output Urine Total 400 ml 1400 ml Gastric Drainage Total 75 ml 85 ml # Voids 7 Laboratory Tests 10/18/19 04:00: White Blood Count 15.3H, Red Blood Count 3.55L, Hemoglobin 11.3L, Hematocrit 31.8L, Mean Corpuscular Volume 89, Mean Corpuscular Hemoglobin 31.8H, Mean Corpuscular Hemoglobin Concent 35.6, Red Cell Distribution Width 10.9L, Platelet Count 192, Mean Platelet Volume 6.5, Neutrophils (%) (Auto) 84.1H, Lymphocytes (%) (Auto) 9.9L, Monocytes (%) (Auto) 5.3, Eosinophils (%) (Auto) 0.5, Basophils (%) (Auto) 0.2, Sodium Level 134L, Potassium Level 2.9L, Chloride Level 97L, Carbon Dioxide Level 28, Anion Gap 9, Blood Urea Nitrogen 6L , Creatinine 0.6, Estimat Glomerular Filtration Rate > 60, Glucose Level 140H, Uric Acid 3.5, Calcium Level 7.7L, Phosphorus Level 2.0L, Magnesium Level 1.9, Total Bilirubin 0.6, Aspartate Amino Transf (AST/SGOT) 22, Alanine Aminotransferase (ALT/SGPT) 45, Alkaline Phosphatase 78, Total Protein 5.8L, Albumin 2.4L, Globulin 3.4, Albumin/Globulin Ratio 0.7L, Amylase Level 32, Lipase 94, Carcinoembryonic Antigen [Pending] Height (Feet): 5 Height (Inches): 8.00 Weight (Pounds): 160 General Appearance: alert EENT: normal ENT inspection Neck: supple Cardiovascular: normal rate Respiratory/Chest: decreased breath sounds Abdomen: soft, hypoactive bowel sounds, distended, tender Extremities: non-tender Ken Justin MD Oct 18, 2019 10:16
[2019-10-18] MEDS: cefTRIAXone 1 GM in D5W 55 ML IVPB SCH (11:20)
--- NOTE | 2019-10-18 11:23 | Infectious Diseases Prog Note ---
Assessment/Plan Assessment/Plan antibiotics : ceftriaxone A 1. e.coli sepsis 2. acute pancreatitis improving 3. diabetes mellitus 4. hypertension 5. colon cancer P 1. continue ceftriaxone 1 more day 2. will follow up cultures Subjective Constitutional: Denies: fever, chills Respiratory: Denies: shortness of breath, dry cough Gastrointestinal/Abdominal: Denies: nausea, vomiting, diarrhea Musculoskeletal: Reports: pain Allergies: Coded Allergies: No Known Allergies (Unverified , 10/10/19) Objective Last 24 Hour Vital Signs Date Time Temp Pulse Resp B/P (MAP) Pulse Ox O2 Delivery O2 Flow Rate FiO2 10/18/19 09:00 Room Air 10/18/19 08:00 98.4 93 18 140/80 (100) 96 10/18/19 04:00 97.7 93 20 136/73 (94) 95 10/18/19 00:00 98.6 102 24 145/74 (97) 94 10/17/19 20:47 Room Air 10/17/19 20:00 97.9 104 22 144/72 (96) 94 10/17/19 16:00 97.9 111 17 138/85 (102) 95 10/17/19 15:09 138/78 10/17/19 12:00 97.9 104 18 138/78 (98) 96 Height (Feet): 5 Height (Inches): 8.00 Weight (Pounds): 160 Respiratory/Chest: lungs clear Cardiovascular: normal rate, regular rhythm, no gallop/murmur Abdomen: soft, non tender Extremities: no edema, other - right subclavian catheter, right arm PICC Laboratory Tests Test 10/18/19 04:00 White Blood Count 15.3 K/UL (4.8-10.8) H Red Blood Count 3.55 M/UL (4.70-6.10) L Hemoglobin 11.3 G/DL (14.2-18.0) L Hematocrit 31.8 % (42.0-52.0) L Mean Corpuscular Volume 89 FL (80-99) Mean Corpuscular Hemoglobin 31.8 PG (27.0-31.0) H Mean Corpuscular Hemoglobin Concent 35.6 G/DL (32.0-36.0) Red Cell Distribution Width 10.9 % (11.6-14.8) L Platelet Count 192 K/UL (150-450) Mean Platelet Volume 6.5 FL (6.5-10.1) Neutrophils (%) (Auto) 84.1 % (45.0-75.0) H Lymphocytes (%) (Auto) 9.9 % (20.0-45.0) L Monocytes (%) (Auto) 5.3 % (1.0-10.0) Eosinophils (%) (Auto) 0.5 % (0.0-3.0) Basophils (%) (Auto) 0.2 % (0.0-2.0) Sodium Level 134 MMOL/L (136-145) L Potassium Level 2.9 MMOL/L (3.5-5.1) L Chloride Level 97 MMOL/L (98-107) L Carbon Dioxide Level 28 MMOL/L (21-32) Anion Gap 9 mmol/L (5-15) Blood Urea Nitrogen 6 mg/dL (7-18) L Creatinine 0.6 MG/DL (0.55-1.30) Estimat Glomerular Filtration Rate > 60 mL/min (>60) Glucose Level 140 MG/DL (74-106) H Uric Acid 3.5 MG/DL (2.6-7.2) Calcium Level 7.7 MG/DL (8.5-10.1) L Phosphorus Level 2.0 MG/DL (2.5-4.9) L Magnesium Level 1.9 MG/DL (1.8-2.4) Total Bilirubin 0.6 MG/DL (0.2-1.0) Aspartate Amino Transf (AST/SGOT) 22 U/L (15-37) Alanine Aminotransferase (ALT/SGPT) 45 U/L (12-78) Alkaline Phosphatase 78 U/L (46-116) Total Protein 5.8 G/DL (6.4-8.2) L Albumin 2.4 G/DL (3.4-5.0) L Globulin 3.4 g/dL Albumin/Globulin Ratio 0.7 (1.0-2.7) L Amylase Level 32 U/L (25-115) Lipase 94 U/L (73-393) Carcinoembryonic Antigen Pending Current Medications Medications (Trade) Dose Ordered Sig/Freida Route PRN Reason Start Time Stop Time Status Last Admin Dose Admin Acetaminophen (Tylenol) 500 mg Q6H PRN ORAL Temp >100.5 10/12/19 14:30 11/11/19 14:29 10/12/19 14:37 Acetaminophen (Tylenol) 500 mg Q6H PRN ORAL Mild Pain (Pain Scale 1-3) 10/12/19 14:30 11/11/19 14:29 Bisacodyl (Dulcolax) 10 mg ONCE RECTAL 10/18/19 10:15 10/18/19 11:30 Ceftriaxone Sodium 1 gm/ Dextrose 55 ml @ 110 mls/hr Q24H IVPB 10/15/19 11:30 10/22/19 11:29 10/17/19 11:52 Chlorhexidine Gluconate (Janett-Hex 2%) 1 applic DAILY@2000 TOPIC 10/17/19 20:00 01/15/20 19:59 10/17/19 20:03 Clonidine HCl (Catapres TTS-3) 1 patch QWEEK TDERMAL 10/17/19 14:00 01/15/20 13:59 10/17/19 15:09 Dextrose (Dextrose 50%) 25 ml Q30M PRN IV Hypoglycemia 10/11/19 14:00 01/09/20 10:59 Dextrose (Dextrose 50%) 50 ml Q30M PRN IV Hypoglycemia 10/11/19 14:00 01/09/20 10:59 Dextrose/ Electrolytes 1,000 ml @ 50 mls/hr Q20H IV 10/17/19 14:00 11/16/19 13:59 10/17/19 15:04 Docusate Sodium (Colace) 100 mg TWICE A DAY ORAL 10/18/19 18:00 11/17/19 17:59 Enalaprilat (Vasotec) 2.5 mg Q4H PRN IV SBP>165 10/17/19 17:00 11/16/19 16:59 Heparin Sodium/ Sodium Chloride (Heparin 1000 units/500ml Premix) 1,000 unit PRN PRN IV PICC PLACEMENT ONLY 10/17/19 10:30 10/19/19 10:29 Hydromorphone HCl (Dilaudid) 1 mg Q3H PRN IVP Severe Pain 10/18/19 08:45 10/21/19 11:14 Insulin Aspart (NovoLOG) BIAC SUBQ 10/11/19 16:30 01/09/20 11:29 10/18/19 06:09 Lactobacillus Acidophilus (Culturelle) 1 tab THREE TIMES A DAY ORAL 10/15/19 13:00 01/13/20 12:59 10/17/19 08:33 Lidocaine HCl (Xylocaine 1% 30ml) 30 ml PRN PRN INJ PICC PLACEMENT ONLY 10/17/19 10:30 10/19/19 10:29 Naloxone HCl (Narcan) 0.2 mg Q2M PRN IVP respritory depression 10/16/19 12:15 01/14/20 12:14 Ondansetron HCl (Zofran) 4 mg Q4H PRN IVP Nausea & Vomiting 10/11/19 17:30 11/09/19 17:29 10/18/19 08:23 Pantoprazole (Protonix) 40 mg Q12HR IVP 10/17/19 21:00 11/10/19 08:59 10/18/19 08:23 Polyethylene Glycol (Miralax) 17 gm BEDTIME ORAL 10/18/19 21:00 11/17/19 20:59 Potassium Phosphate 250 ml @ 62.5 mls/hr Q4H IVPB 10/18/19 09:00 10/18/19 16:59 10/18/19 08:23 Potassium Chloride 100 ml @ 100 mls/hr Q1HR IVPB 10/18/19 08:00 10/18/19 13:59 10/18/19 09:55 Mario Sawyer MD Oct 18, 2019 11:22
--- NOTE | 2019-10-18 11:28 | Surgery Progress Note ---
Surgery Progress Note Subjective Symptoms: improved Additional Comments afebrile HD stable leukocytosis ng removed started diet no n/v/f/c pain stable +flatus daughter at bedside. discussed care and plan Objective Last 24 Hour Vital Signs Date Time Temp Pulse Resp B/P (MAP) Pulse Ox O2 Delivery O2 Flow Rate FiO2 10/18/19 09:00 Room Air 10/18/19 08:00 98.4 93 18 140/80 (100) 96 10/18/19 04:00 97.7 93 20 136/73 (94) 95 10/18/19 00:00 98.6 102 24 145/74 (97) 94 10/17/19 20:47 Room Air 10/17/19 20:00 97.9 104 22 144/72 (96) 94 10/17/19 16:00 97.9 111 17 138/85 (102) 95 10/17/19 15:09 138/78 10/17/19 12:00 97.9 104 18 138/78 (98) 96 I&O Intake and Output 10/17/19 10/18/19 19:00 07:00 Intake Total 702.5 ml 560 ml Output Total 475 ml 1485 ml Balance 227.5 ml -925 ml IV Total 702.5 ml 200 ml Other 360 ml Output Urine Total 400 ml 1400 ml Gastric Drainage Total 75 ml 85 ml # Voids 7 Cardiovascular: RSR Respiratory: clear Abdomen: soft, distended, tenderness, present bowel sounds Extremities: no edema, no tenderness, no cyanosis Laboratory Tests Test 10/18/19 04:00 White Blood Count 15.3 K/UL (4.8-10.8) H Red Blood Count 3.55 M/UL (4.70-6.10) L Hemoglobin 11.3 G/DL (14.2-18.0) L Hematocrit 31.8 % (42.0-52.0) L Mean Corpuscular Volume 89 FL (80-99) Mean Corpuscular Hemoglobin 31.8 PG (27.0-31.0) H Mean Corpuscular Hemoglobin Concent 35.6 G/DL (32.0-36.0) Red Cell Distribution Width 10.9 % (11.6-14.8) L Platelet Count 192 K/UL (150-450) Mean Platelet Volume 6.5 FL (6.5-10.1) Neutrophils (%) (Auto) 84.1 % (45.0-75.0) H Lymphocytes (%) (Auto) 9.9 % (20.0-45.0) L Monocytes (%) (Auto) 5.3 % (1.0-10.0) Eosinophils (%) (Auto) 0.5 % (0.0-3.0) Basophils (%) (Auto) 0.2 % (0.0-2.0) Sodium Level 134 MMOL/L (136-145) L Potassium Level 2.9 MMOL/L (3.5-5.1) L Chloride Level 97 MMOL/L (98-107) L Carbon Dioxide Level 28 MMOL/L (21-32) Anion Gap 9 mmol/L (5-15) Blood Urea Nitrogen 6 mg/dL (7-18) L Creatinine 0.6 MG/DL (0.55-1.30) Estimat Glomerular Filtration Rate > 60 mL/min (>60) Glucose Level 140 MG/DL (74-106) H Uric Acid 3.5 MG/DL (2.6-7.2) Calcium Level 7.7 MG/DL (8.5-10.1) L Phosphorus Level 2.0 MG/DL (2.5-4.9) L Magnesium Level 1.9 MG/DL (1.8-2.4) Total Bilirubin 0.6 MG/DL (0.2-1.0) Aspartate Amino Transf (AST/SGOT) 22 U/L (15-37) Alanine Aminotransferase (ALT/SGPT) 45 U/L (12-78) Alkaline Phosphatase 78 U/L (46-116) Total Protein 5.8 G/DL (6.4-8.2) L Albumin 2.4 G/DL (3.4-5.0) L Globulin 3.4 g/dL Albumin/Globulin Ratio 0.7 (1.0-2.7) L Amylase Level 32 U/L (25-115) Lipase 94 U/L (73-393) Carcinoembryonic Antigen Pending Plan Problems: (1) Colon cancer (2) Pneumonia (3) Severe sepsis (4) Gallstone pancreatitis Assessment & Plan: 59-year-old male history of colon cancer chemo therapy resection doing well to recently developed arm pain nausea and vomiting. Identified to have severe acute gallstone pancreatitis. Abdomen tender but not in acute abdomen with peritonitis Currently no nausea vomiting leukocytosis lactic acidosis improving with resuscitation diet as tolerated IV fluids MRCP reviewed Trend labs We will follow with recommendations thank you for let me participate in patient' s care Given the severity of patient's acute severe gallstone pancreatitis would recommend cool down prior to cholecystectomy. Patient to have cholecystectomy but given the amount of pancreatic inflammation identified on CT and MRI would recommend allowing inflammation to settle and subside prior to surgical intervention. Patient can follow-up with his primary surgeon who performed multiple abdominal operations for his colon cancer to have procedure done or any surgeon within his network. Advance diet as tolerated. Okay to discharge from surgical standpoint. Pain management. Diet as tolerated Repeat CT identified. Acute severe pancreatitis small focus of potential necrosis unlikely infected. Continue antibiotics continue nonoperative management of acute severe pancreatitis Spoke to the daughter and the patient today. Recommend allowing acute inflammatory process to subside. And then can consider surgical intervention. Once improved okay for discharge outpatient follow-up Episode of emesis since remain n.p.o. with NG tube. KUB reviewed by myself. Likely minimal ileus. Discussed with GI. Continue NG decompression for now. Once improved will DC NG tube and resume oral diet. improved ng out diet started abx mild subsegmental basilar atelectasis, left more pronounced than right. No acute basilar infiltrate. Extensive peripancreatic edema system with severe, acute pancreatitis. No clear focal glandular necrosis. No loculated fluid collection. No hemorrhage or gas. Mild extrahepatic biliary dilation. Enhancing gallbladder wall. No radiopaque gallstone. Recommend correlation for elevated biliary markers in addition to pancreatic enzymes. Renal cysts and hypodensities that are too small to characterize. No hydronephrosis. Transverse colonic resection with intact anastomosis. No bowel obstruction. The appendix is unremarkable. Aortoiliac atherosclerosis without aneurysm. No acute fracture. Mild thoracolumbar spondylosis. IMPRESSION: Acute pancreatitis. Distended gallbladder and CBD. No radiopaque gallstone, but recommend clinical/laboratory correlation. Incidental findings as above. Gallbladder demonstrates filling defects consistent with gallstones. The gallbladder wall is mildly thickened and mildly edematous. The common hepatic duct is mildly ectatic, measuring up to 9 mm in diameter. The common bile duct is normal in caliber. No intraluminal filling defect or obstructing stone is demonstrated. There is somewhat low insertion of the cystic duct into the common hepatic duct The pancreas is enlarged and edematous, and considerable phlegmon is seen within upper abdominal fat, similar in distribution to that described on prior CT scan. No discrete walled off fluid collection demonstrated. The pancreatic duct is normal in caliber. No focal liver lesion demonstrated. The spleen, adrenals are unremarkable. The kidneys demonstrate cysts bilaterally. The included upper pelvis appears unremarkable. Impression: Evidence of acute pancreatitis, also described on recent CT scan. No discrete fluid collection to suggest abscess or early pseudocyst formation Cholelithiasis. Mild gallbladder wall thickening. This could be related to the adjacent pancreatic inflammation, or could indicate acute cholecystitis. Correlate with clinical findings, consider nuclear medicine hepatobiliary scan if clinically indicated Ectatic common hepatic duct demonstrated, significance/etiology uncertain. Normal caliber common bile duct. No definite downstream obstructive lesion Incidental finding of bilateral renal cysts (5) Pain Assessment & Plan: hand fx noted ortho input appreciated abd pain stable kub ordered and noted Yury Baxter Oct 18, 2019 11:28
[2019-10-18] MEDS ORDERED: Milk of Magnesia 30ml Ud ORAL PRN (11:45)
[2019-10-18] MEDS ORDERED: Milk of Magnesia 30ml Ud ORAL SCH (11:45)
[2019-10-18 12:00] VITALS: BP 151/77
--- NOTE | 2019-10-18 12:55 | Nephrology Progress Note ---
Assessment/Plan Problem List: (1) Electrolyte imbalance (2) Colon cancer (3) Gallstone pancreatitis (4) HTN (hypertension) (5) Anemia Assessment Severe hypokalemia Hyponatremia Anemia Hypertension History of diabetes mellitus Colon cancer Pneumonia Sepsis Gallstone pancreatitis BPH Plan More potassium and phosphorus supplement IV ordered Was started on clear liquid diet today IV fluid: Adjust to D5 normal saline with KCl rate of 50 cc an hour IV Protonix NG discontinued by GI Clonidine patch for blood pressure PRN enalapril for high blood pressure Monitor electrolytes Per orders Subjective ROS Limited/Unobtainable: No Constitutional: Reports: malaise Objective Objective Last 24 Hour Vital Signs Date Time Temp Pulse Resp B/P (MAP) Pulse Ox O2 Delivery O2 Flow Rate FiO2 10/18/19 12:00 96.1 96 20 151/77 (101) 95 10/18/19 09:00 Room Air 10/18/19 08:00 98.4 93 18 140/80 (100) 96 10/18/19 04:00 97.7 93 20 136/73 (94) 95 10/18/19 00:00 98.6 102 24 145/74 (97) 94 10/17/19 20:47 Room Air 10/17/19 20:00 97.9 104 22 144/72 (96) 94 10/17/19 16:00 97.9 111 17 138/85 (102) 95 10/17/19 15:09 138/78 Intake and Output 10/17/19 10/18/19 19:00 07:00 Intake Total 702.5 ml 560 ml Output Total 475 ml 1485 ml Balance 227.5 ml -925 ml IV Total 702.5 ml 200 ml Other 360 ml Output Urine Total 400 ml 1400 ml Gastric Drainage Total 75 ml 85 ml # Voids 7 Current Medications Medications (Trade) Dose Ordered Sig/Freida Route PRN Reason Start Time Stop Time Status Last Admin Dose Admin Acetaminophen (Tylenol) 500 mg Q6H PRN ORAL Temp >100.5 10/12/19 14:30 11/11/19 14:29 10/12/19 14:37 Acetaminophen (Tylenol) 500 mg Q6H PRN ORAL Mild Pain (Pain Scale 1-3) 10/12/19 14:30 11/11/19 14:29 Chlorhexidine Gluconate (Janett-Hex 2%) 1 applic DAILY@1999 TOPIC 10/17/19 20:00 01/15/20 19:59 10/17/19 20:03 Clonidine HCl (Catapres TTS-3) 1 patch QWEEK TDERMAL 10/17/19 14:00 01/15/20 13:59 10/17/19 15:09 Dextrose (Dextrose 50%) 25 ml Q30M PRN IV Hypoglycemia 10/11/19 14:00 01/09/20 10:59 Dextrose (Dextrose 50%) 50 ml Q30M PRN IV Hypoglycemia 10/11/19 14:00 01/09/20 10:59 Dextrose/ Electrolytes 1,000 ml @ 50 mls/hr Q20H IV 10/17/19 14:00 11/16/19 13:59 10/17/19 15:04 Docusate Sodium (Colace) 100 mg TWICE A DAY ORAL 10/18/19 18:00 11/17/19 17:59 Enalaprilat (Vasotec) 2.5 mg Q4H PRN IV SBP>165 10/17/19 17:00 11/16/19 16:59 Ertapenem 1 gm/ Sodium Chloride 55 ml @ 110 mls/hr Q24H IVPB 10/18/19 13:00 10/23/19 12:59 Heparin Sodium/ Sodium Chloride (Heparin 1000 units/500ml Premix) 1,000 unit PRN PRN IV PICC PLACEMENT ONLY 10/17/19 10:30 10/19/19 10:29 Hydromorphone HCl (Dilaudid) 1 mg Q3H PRN IVP Severe Pain 10/18/19 08:45 10/21/19 11:14 10/18/19 11:50 Insulin Aspart (NovoLOG) BIAC SUBQ 10/11/19 16:30 01/09/20 11:29 10/18/19 06:09 Lactobacillus Acidophilus (Culturelle) 1 tab THREE TIMES A DAY ORAL 10/15/19 13:00 01/13/20 12:59 10/17/19 08:33 Lidocaine HCl (Xylocaine 1% 30ml) 30 ml PRN PRN INJ PICC PLACEMENT ONLY 10/17/19 10:30 10/19/19 10:29 Magnesium Hydroxide (Mom) 30 ml DAILYPRN PRN ORAL Constipation 10/18/19 11:45 11/17/19 11:44 Magnesium Hydroxide (Mom) 30 ml ONCE ORAL 10/18/19 11:45 10/18/19 13:00 10/18/19 11:49 Naloxone HCl (Narcan) 0.2 mg Q2M PRN IVP respritory depression 10/16/19 12:15 01/14/20 12:14 Ondansetron HCl (Zofran) 4 mg Q4H PRN IVP Nausea & Vomiting 10/11/19 17:30 11/09/19 17:29 10/18/19 08:23 Pantoprazole (Protonix) 40 mg Q12HR IVP 10/17/19 21:00 11/10/19 08:59 10/18/19 08:23 Polyethylene Glycol (Miralax) 17 gm BEDTIME ORAL 10/18/19 21:00 11/17/19 20:59 Potassium Phosphate 250 ml @ 62.5 mls/hr Q4H IVPB 10/18/19 09:00 10/18/19 16:59 10/18/19 08:23 Potassium Chloride 100 ml @ 100 mls/hr Q1HR IVPB 10/18/19 08:00 10/18/19 13:59 10/18/19 11:21 Laboratory Tests 10/18/19 04:00: White Blood Count 15.3H, Red Blood Count 3.55L, Hemoglobin 11.3L, Hematocrit 31.8L, Mean Corpuscular Volume 89, Mean Corpuscular Hemoglobin 31.8H, Mean Corpuscular Hemoglobin Concent 35.6, Red Cell Distribution Width 10.9L, Platelet Count 192, Mean Platelet Volume 6.5, Neutrophils (%) (Auto) 84.1H, Lymphocytes (%) (Auto) 9.9L, Monocytes (%) (Auto) 5.3, Eosinophils (%) (Auto) 0.5, Basophils (%) (Auto) 0.2, Sodium Level 134L, Potassium Level 2.9L, Chloride Level 97L, Carbon Dioxide Level 28, Anion Gap 9, Blood Urea Nitrogen 6L , Creatinine 0.6, Estimat Glomerular Filtration Rate > 60, Glucose Level 140H, Uric Acid 3.5, Calcium Level 7.7L, Phosphorus Level 2.0L, Magnesium Level 1.9, Total Bilirubin 0.6, Aspartate Amino Transf (AST/SGOT) 22, Alanine Aminotransferase (ALT/SGPT) 45, Alkaline Phosphatase 78, Total Protein 5.8L, Albumin 2.4L, Globulin 3.4, Albumin/Globulin Ratio 0.7L, Amylase Level 32, Lipase 94, Carcinoembryonic Antigen [Pending] Height (Feet): 5 Height (Inches): 8.00 Weight (Pounds): 160 General Appearance: no apparent distress EENT: other - NG tube out Cardiovascular: tachycardia Respiratory/Chest: decreased breath sounds Abdomen: distended Fantasma Cast MD Oct 18, 2019 12:55
[2019-10-18] MEDS: Ertapenem 1 GM in NS 55 ML IVPB SCH (13:35)
[2019-10-18 15:56] VITALS: BP 137/82
--- NOTE | 2019-10-18 17:00 | Progress Note ---
DATE: 10/18/2019 SUBJECTIVE: This is a 59-year-old currently doing better. Abdominal pain is slightly better. The patient had NG tube low to intermittent suction. The patient has been walking. OBJECTIVE: VITAL SIGNS: Blood pressure 140/80, pulse 93, no fever. CHEST: Bilateral crackles. CARDIOVASCULAR: Regular rhythm. ABDOMEN: Distended. Decreased bowel sounds. EXTREMITIES: CCE. ASSESSMENT: 1. Ileus. 2. Small bowel obstruction. 3. History of colon cancer. PLAN: 1. We will continue NPO. 2. Continue NG tube suction. 3. Start TPN. 4. GI is on consult. Ko Ortega M.D. DR: Milton JOB#: [id number] CC:
[2019-10-18] MEDS: Docusate 100mg cap ORAL SCH ×2 (17:04→17:37)
[2019-10-18 20:00] VITALS: BP 128/66
[2019-10-18] MEDS ORDERED: Miralax 17gm pkt ORAL SCH (21:00)
[2019-10-18] MEDS: Dyna-Hex 2% Top Sol 2oz TOPIC SCH (21:09)
[2019-10-19] VITALS: BP 136/71
[2019-10-19 04:00] VITALS: BP 128/66
[2019-10-19 05:48] LABS: BASOPHILS % (AUTO) 0.3 % (0.0-2.0); EOSINOPHILS % (AUTO) 1.1 % (0.0-3.0); HEMOGLOBIN 11.1 G/DL (14.2-18.0); LYMPHOCYTES % (AUTO) 14.1 % (20.0-45.0); MEAN CORPUSCULAR VOLUME 90 FL (80-99); MONOCYTES % (AUTO) 6.3 % (1.0-10.0); NEUTROPHILS % (AUTO) 78.3 % (45.0-75.0); PLATELET COUNT 204 K/UL (150-450); RED BLOOD COUNT 3.55 M/UL (4.70-6.10); RED CELL DISTRIBUTION WIDTH 11.1 % (11.6-14.8); WHITE BLOOD COUNT 10.8 K/UL (4.8-10.8)
[2019-10-19] MEDS: NovoLOG Insulin Flexpen SUBQ SCH ×2 (06:25→17:50)
[2019-10-19 06:30] LABS: PHOSPHORUS 2.4 MG/DL (2.5-4.9)
[2019-10-19 06:48] LABS: ALANINE AMINOTRANSFERASE 45 U/L (12-78); ALBUMIN 2.5 G/DL (3.4-5.0); ALBUMIN/GLOBULIN RATIO 0.7 (1.0-2.7); ALKALINE PHOSPHATASE 85 U/L (46-116); ANION GAP 9 mmol/L (5-15); ASPARTATE AMINO TRANSFERASE 22 U/L (15-37); BILIRUBIN,TOTAL 0.6 MG/DL (0.2-1.0); BLOOD UREA NITROGEN 3 mg/dL (7-18); CALCIUM 8.1 MG/DL (8.5-10.1); CARBON DIOXIDE 29 MMOL/L (21-32); CHLORIDE 98 MMOL/L (98-107); CREATININE 0.7 MG/DL (0.55-1.30); POTASSIUM 3.4 MMOL/L (3.5-5.1); SODIUM 136 MMOL/L (136-145)
[2019-10-19 08:00] VITALS: BP 142/89
[2019-10-19] MEDS: Docusate 100mg cap ORAL SCH ×3 (09:00→17:51)
[2019-10-19] MEDS: Pantoprazole Inj IVP SCH (09:20)
[2019-10-19] MEDS: Lactobacillus-GG tablet ORAL SCH ×3 (09:20→17:39)
--- NOTE | 2019-10-19 09:40 | General Progress Note ---
Assessment/Plan Assessment/Plan: (1) Abdominal pain (2) Pancreatitis (3) H/o colon cancer (4) Ileus Patient to be continued on Dilaudid as needed D/w Dr. Waller and he concurred. Subjective Date patient seen: Oct 19, 2019 Time patient seen: 09:00 - am Allergies: Coded Allergies: No Known Allergies (Unverified , 10/10/19) Subjective REVIEW OF SYSTEMS: Denies rash, fever, chills, sweating, dizziness, drowsiness, blurred vision, ringing in ear, shortness of breath, chest pain, palpitations, or cough. No nausea, vomiting, diarrhea, or blood in stool or in the urine. No dysuria. He is complaining of abdominal pain. SUBJECTIVE: Patient is doing better and NG tube was removed. Started on diet as per GI. Pain has been stable on the Dilaudid and has no new complaints at this time. Objective Last 24 Hour Vital Signs Date Time Temp Pulse Resp B/P (MAP) Pulse Ox O2 Delivery O2 Flow Rate FiO2 10/19/19 09:00 Room Air 10/19/19 08:00 98.2 101 19 142/89 (106) 94 10/19/19 04:00 97.9 77 20 128/66 (86) 94 10/19/19 00:00 97.5 85 18 136/71 (92) 95 10/18/19 21:00 Room Air 10/18/19 20:00 97.7 94 22 128/66 (86) 94 10/18/19 15:56 98.2 88 20 137/82 (100) 95 10/18/19 12:00 96.1 96 20 151/77 (101) 95 Intake and Output 10/18/19 10/19/19 19:00 07:00 Intake Total 1465.0 ml 550 ml Output Total 450 ml Balance 1465.0 ml 100 ml Intake Oral 360 ml IV Total 1105.0 ml 550 ml Output Urine Total 450 ml # Voids 6 2 # Bowel Movements 1 Laboratory Tests 10/18/19 16:56: POC Whole Blood Glucose 157H 10/19/19 04:30: White Blood Count 10.8, Red Blood Count 3.55L, Hemoglobin 11.1L, Hematocrit 32.0L, Mean Corpuscular Volume 90, Mean Corpuscular Hemoglobin 31.3H, Mean Corpuscular Hemoglobin Concent 34.7, Red Cell Distribution Width 11.1L, Platelet Count 204, Mean Platelet Volume 6.8, Neutrophils (%) (Auto) 78.3H, Lymphocytes (%) (Auto) 14.1L, Monocytes (%) (Auto) 6.3, Eosinophils (%) (Auto) 1.1, Basophils (%) (Auto) 0.3, Sodium Level 136, Potassium Level 3.4L, Chloride Level 98, Carbon Dioxide Level 29, Anion Gap 9, Blood Urea Nitrogen 3L, Creatinine 0.7, Estimat Glomerular Filtration Rate > 60, Glucose Level 144H, Calcium Level 8.1L, Phosphorus Level 2.4L, Magnesium Level 1.6L, Total Bilirubin 0.6, Aspartate Amino Transf (AST/SGOT) 22, Alanine Aminotransferase ( ALT/SGPT) 45, Alkaline Phosphatase 85, Total Protein 6.1L, Albumin 2.5L, Globulin 3.6, Albumin/Globulin Ratio 0.7L 10/19/19 06:19: POC Whole Blood Glucose 153H Height (Feet): 5 Height (Inches): 8.00 Weight (Pounds): 151 Objective GENERAL: Alert, awake, and oriented. LUNGS: Decreased breath sounds bilaterally. HEART: S1 and S2 regular. ABDOMEN: Tenderness to palpation with surgical scar noted on midline of abdominal area. EXTREMITIES: No cyanosis. No clubbing. No edema. NEURO: No changes. Tucker Zamora Oct 19, 2019 09:40
--- NOTE | 2019-10-19 10:59 | Infectious Diseases Prog Note ---
Assessment/Plan Assessment/Plan antibiotics : ertapenem A 1. e.coli sepsis 2. acute pancreatitis improving 3. diabetes mellitus 4. hypertension 5. colon cancer P 1. ertapenem started, continue 4 more days 2. will follow up cultures Subjective Constitutional: Denies: fever, chills Respiratory: Denies: shortness of breath Gastrointestinal/Abdominal: Denies: nausea, vomiting, diarrhea Musculoskeletal: Reports: pain - decreased abdominal Allergies: Coded Allergies: No Known Allergies (Unverified , 10/10/19) Objective Last 24 Hour Vital Signs Date Time Temp Pulse Resp B/P (MAP) Pulse Ox O2 Delivery O2 Flow Rate FiO2 10/19/19 09:00 Room Air 10/19/19 08:00 98.2 101 19 142/89 (106) 94 10/19/19 04:00 97.9 77 20 128/66 (86) 94 10/19/19 00:00 97.5 85 18 136/71 (92) 95 10/18/19 21:00 Room Air 10/18/19 20:00 97.7 94 22 128/66 (86) 94 10/18/19 15:56 98.2 88 20 137/82 (100) 95 10/18/19 12:00 96.1 96 20 151/77 (101) 95 Height (Feet): 5 Height (Inches): 8.00 Weight (Pounds): 151 Respiratory/Chest: lungs clear Cardiovascular: normal rate, regular rhythm, no gallop/murmur Abdomen: soft, non tender Extremities: no edema, other - right subclavian, right arm PICC Laboratory Tests Test 10/18/19 16:56 10/19/19 04:30 10/19/19 06:19 POC Whole Blood Glucose 157 MG/DL (74-106) H 153 MG/DL (74-106) H White Blood Count 10.8 K/UL (4.8-10.8) Red Blood Count 3.55 M/UL (4.70-6.10) L Hemoglobin 11.1 G/DL (14.2-18.0) L Hematocrit 32.0 % (42.0-52.0) L Mean Corpuscular Volume 90 FL (80-99) Mean Corpuscular Hemoglobin 31.3 PG (27.0-31.0) H Mean Corpuscular Hemoglobin Concent 34.7 G/DL (32.0-36.0) Red Cell Distribution Width 11.1 % (11.6-14.8) L Platelet Count 204 K/UL (150-450) Mean Platelet Volume 6.8 FL (6.5-10.1) Neutrophils (%) (Auto) 78.3 % (45.0-75.0) H Lymphocytes (%) (Auto) 14.1 % (20.0-45.0) L Monocytes (%) (Auto) 6.3 % (1.0-10.0) Eosinophils (%) (Auto) 1.1 % (0.0-3.0) Basophils (%) (Auto) 0.3 % (0.0-2.0) Sodium Level 136 MMOL/L (136-145) Potassium Level 3.4 MMOL/L (3.5-5.1) L Chloride Level 98 MMOL/L (98-107) Carbon Dioxide Level 29 MMOL/L (21-32) Anion Gap 9 mmol/L (5-15) Blood Urea Nitrogen 3 mg/dL (7-18) L Creatinine 0.7 MG/DL (0.55-1.30) Estimat Glomerular Filtration Rate > 60 mL/min (>60) Glucose Level 144 MG/DL (74-106) H Calcium Level 8.1 MG/DL (8.5-10.1) L Phosphorus Level 2.4 MG/DL (2.5-4.9) L Magnesium Level 1.6 MG/DL (1.8-2.4) L Total Bilirubin 0.6 MG/DL (0.2-1.0) Aspartate Amino Transf (AST/SGOT) 22 U/L (15-37) Alanine Aminotransferase (ALT/SGPT) 45 U/L (12-78) Alkaline Phosphatase 85 U/L (46-116) Total Protein 6.1 G/DL (6.4-8.2) L Albumin 2.5 G/DL (3.4-5.0) L Globulin 3.6 g/dL Albumin/Globulin Ratio 0.7 (1.0-2.7) L Current Medications Medications (Trade) Dose Ordered Sig/Freida Route PRN Reason Start Time Stop Time Status Last Admin Dose Admin Acetaminophen (Tylenol) 500 mg Q6H PRN ORAL Temp >100.5 10/12/19 14:30 11/11/19 14:29 10/12/19 14:37 Acetaminophen (Tylenol) 500 mg Q6H PRN ORAL Mild Pain (Pain Scale 1-3) 10/12/19 14:30 11/11/19 14:29 Chlorhexidine Gluconate (Janett-Hex 2%) 1 applic DAILY@2000 TOPIC 10/17/19 20:00 01/15/20 19:59 10/18/19 21:09 Clonidine HCl (Catapres TTS-3) 1 patch QWEEK TDERMAL 10/17/19 14:00 01/15/20 13:59 10/17/19 15:09 Dextrose (Dextrose 50%) 25 ml Q30M PRN IV Hypoglycemia 10/11/19 14:00 01/09/20 10:59 Dextrose (Dextrose 50%) 50 ml Q30M PRN IV Hypoglycemia 10/11/19 14:00 01/09/20 10:59 Dextrose/ Electrolytes 1,000 ml @ 50 mls/hr Q20H IV 10/17/19 14:00 11/16/19 13:59 10/18/19 21:09 Docusate Sodium (Colace) 100 mg TWICE A DAY ORAL 10/18/19 18:00 11/17/19 17:59 10/18/19 17:37 Enalaprilat (Vasotec) 2.5 mg Q4H PRN IV SBP>165 10/17/19 17:00 11/16/19 16:59 Ertapenem 1 gm/ Sodium Chloride 55 ml @ 110 mls/hr Q24H IVPB 10/18/19 13:00 10/23/19 12:59 10/18/19 13:35 Hydromorphone HCl (Dilaudid) 1 mg Q3H PRN IVP Severe Pain 10/18/19 08:45 10/21/19 11:14 10/19/19 09:21 Insulin Aspart (NovoLOG) BIAC SUBQ 10/11/19 16:30 01/09/20 11:29 10/19/19 06:25 Lactobacillus Acidophilus (Culturelle) 1 tab THREE TIMES A DAY ORAL 10/15/19 13:00 01/13/20 12:59 10/19/19 09:20 Magnesium Hydroxide (Mom) 30 ml DAILYPRN PRN ORAL Constipation 10/18/19 11:45 11/17/19 11:44 Magnesium Sulfate 100 ml @ 100 mls/hr Q1H IVPB 10/19/19 10:45 10/19/19 14:44 Naloxone HCl (Narcan) 0.2 mg Q2M PRN IVP respritory depression 10/16/19 12:15 01/14/20 12:14 Ondansetron HCl (Zofran) 4 mg Q4H PRN IVP Nausea & Vomiting 10/11/19 17:30 11/09/19 17:29 10/18/19 15:21 Pantoprazole (Protonix) 40 mg Q12HR IVP 10/17/19 21:00 11/10/19 08:59 10/19/19 09:20 Polyethylene Glycol (Miralax) 17 gm BEDTIME ORAL 10/18/19 21:00 11/17/19 20:59 Potassium Phosphate 20 mm/ Sodium Chloride 281.6667 ml @ 46.944 m... ONCE ONCE IV 10/19/19 12:00 10/19/19 17:59 Mario Sawyer MD Oct 19, 2019 10:59
[2019-10-19 12:00] VITALS: BP 147/82
[2019-10-19] MEDS ORDERED: Potassium Phosphate 20 MM in NS 275 ML IV ONE (12:00)
--- NOTE | 2019-10-19 12:15 | Nephrology Progress Note ---
Assessment/Plan Problem List: (1) Electrolyte imbalance (2) Colon cancer (3) Gallstone pancreatitis (4) HTN (hypertension) (5) Anemia Assessment Severe hypokalemia Hyponatremia Anemia Hypertension History of diabetes mellitus Colon cancer Pneumonia Sepsis Gallstone pancreatitis BPH Plan More potassium and phosphorus supplement IV ordered Was started on clear liquid diet IV fluid: Adjust to D5 normal saline with KCl rate of 50 cc an hour IV Protonix NG discontinued by GI Clonidine patch for blood pressure PRN enalapril for high blood pressure Monitor electrolytes Per orders Subjective ROS Limited/Unobtainable: No Constitutional: Reports: malaise Objective Objective Last 24 Hour Vital Signs Date Time Temp Pulse Resp B/P (MAP) Pulse Ox O2 Delivery O2 Flow Rate FiO2 10/19/19 09:00 Room Air 10/19/19 08:00 98.2 101 19 142/89 (106) 94 10/19/19 04:00 97.9 77 20 128/66 (86) 94 10/19/19 00:00 97.5 85 18 136/71 (92) 95 10/18/19 21:00 Room Air 10/18/19 20:00 97.7 94 22 128/66 (86) 94 10/18/19 15:56 98.2 88 20 137/82 (100) 95 Intake and Output 10/18/19 10/19/19 18:59 06:59 Intake Total 1415.0 ml 600 ml Output Total 450 ml Balance 1415.0 ml 150 ml Intake Oral 360 ml IV Total 1055.0 ml 600 ml Output Urine Total 450 ml # Voids 6 2 # Bowel Movements 1 Laboratory Tests 10/18/19 16:56: POC Whole Blood Glucose 157H 10/19/19 04:30: White Blood Count 10.8, Red Blood Count 3.55L, Hemoglobin 11.1L, Hematocrit 32.0L, Mean Corpuscular Volume 90, Mean Corpuscular Hemoglobin 31.3H, Mean Corpuscular Hemoglobin Concent 34.7, Red Cell Distribution Width 11.1L, Platelet Count 204, Mean Platelet Volume 6.8, Neutrophils (%) (Auto) 78.3H, Lymphocytes (%) (Auto) 14.1L, Monocytes (%) (Auto) 6.3, Eosinophils (%) (Auto) 1.1, Basophils (%) (Auto) 0.3, Sodium Level 136, Potassium Level 3.4L, Chloride Level 98, Carbon Dioxide Level 29, Anion Gap 9, Blood Urea Nitrogen 3L, Creatinine 0.7, Estimat Glomerular Filtration Rate > 60, Glucose Level 144H, Calcium Level 8.1L, Phosphorus Level 2.4L, Magnesium Level 1.6L, Total Bilirubin 0.6, Aspartate Amino Transf (AST/SGOT) 22, Alanine Aminotransferase ( ALT/SGPT) 45, Alkaline Phosphatase 85, Total Protein 6.1L, Albumin 2.5L, Globulin 3.6, Albumin/Globulin Ratio 0.7L 10/19/19 06:19: POC Whole Blood Glucose 153H Height (Feet): 5 Height (Inches): 8.00 Weight (Pounds): 151 General Appearance: no apparent distress Cardiovascular: tachycardia Respiratory/Chest: decreased breath sounds Abdomen: distended Fantasma Cast MD Oct 19, 2019 12:15
--- NOTE | 2019-10-19 12:21 | General Progress Note ---
Assessment/Plan Assessment/Plan: Assessment - acute gallstone pancreatitis - 2.5 cm suspected early pancreatic necrosis - bowel distention / ileus - abd pain - cholelithiasis - leukocytosis - better - h/o colon CA Recommendations - abx - IVF - monitor labs -advance diet -dc miralax and protonix -add creon- possible dc for tomorrow - eventual lap hieu Subjective ROS Limited/Unobtainable: Yes Allergies: Coded Allergies: No Known Allergies (Unverified , 10/10/19) Objective Last 24 Hour Vital Signs Date Time Temp Pulse Resp B/P (MAP) Pulse Ox O2 Delivery O2 Flow Rate FiO2 10/19/19 09:00 Room Air 10/19/19 08:00 98.2 101 19 142/89 (106) 94 10/19/19 04:00 97.9 77 20 128/66 (86) 94 10/19/19 00:00 97.5 85 18 136/71 (92) 95 10/18/19 21:00 Room Air 10/18/19 20:00 97.7 94 22 128/66 (86) 94 10/18/19 15:56 98.2 88 20 137/82 (100) 95 Intake and Output 10/18/19 10/19/19 18:59 06:59 Intake Total 1415.0 ml 600 ml Output Total 450 ml Balance 1415.0 ml 150 ml Intake Oral 360 ml IV Total 1055.0 ml 600 ml Output Urine Total 450 ml # Voids 6 2 # Bowel Movements 1 Laboratory Tests 10/18/19 16:56: POC Whole Blood Glucose 157H 10/19/19 04:30: White Blood Count 10.8, Red Blood Count 3.55L, Hemoglobin 11.1L, Hematocrit 32.0L, Mean Corpuscular Volume 90, Mean Corpuscular Hemoglobin 31.3H, Mean Corpuscular Hemoglobin Concent 34.7, Red Cell Distribution Width 11.1L, Platelet Count 204, Mean Platelet Volume 6.8, Neutrophils (%) (Auto) 78.3H, Lymphocytes (%) (Auto) 14.1L, Monocytes (%) (Auto) 6.3, Eosinophils (%) (Auto) 1.1, Basophils (%) (Auto) 0.3, Sodium Level 136, Potassium Level 3.4L, Chloride Level 98, Carbon Dioxide Level 29, Anion Gap 9, Blood Urea Nitrogen 3L, Creatinine 0.7, Estimat Glomerular Filtration Rate > 60, Glucose Level 144H, Calcium Level 8.1L, Phosphorus Level 2.4L, Magnesium Level 1.6L, Total Bilirubin 0.6, Aspartate Amino Transf (AST/SGOT) 22, Alanine Aminotransferase ( ALT/SGPT) 45, Alkaline Phosphatase 85, Total Protein 6.1L, Albumin 2.5L, Globulin 3.6, Albumin/Globulin Ratio 0.7L 10/19/19 06:19: POC Whole Blood Glucose 153H Height (Feet): 5 Height (Inches): 8.00 Weight (Pounds): 151 General Appearance: alert EENT: normal ENT inspection Neck: supple Cardiovascular: normal rate Respiratory/Chest: decreased breath sounds Abdomen: normal bowel sounds, non tender, soft Extremities: non-tender Ken Justin MD Oct 19, 2019 12:20
[2019-10-19] MEDS: Pancrelipase Dr Cap ORAL SCH ×2 (12:55→17:39)
[2019-10-19 16:00] VITALS: BP 128/78
[2019-10-19] MEDS: Ertapenem 1 GM in NS 55 ML IVPB SCH (16:08)
--- NOTE | 2019-10-19 18:15 | Progress Note ---
DATE: 10/19/2019 SUBJECTIVE: This is a 59-year-old male came to the emergency room for having abdominal pain, nausea, vomiting. Patient was found to have acute pancreatitis. Patient also had elevated lipase, which is improving. Patient currently has a NG tube suction low to intermittent. Patient is clinically improved now. He is tolerating liquid diet. Abdominal pain is improving. Patient's stomach is also normal. GI is on consult. Patient is currently on soft diet. Patient also has recurrent hypokalemia. He is on KCl supplement. We will currently continue antibiotic. Continue to supplement potassium. Continue meanwhile TPN titrated down. Continue p.o. feeding. Advance the feeding. Discussed with GI and charge nurse. Ko Ortega M.D. DR: DAVID JOB#: [id number] CC:
[2019-10-19 20:00] VITALS: BP 121/72
--- NOTE | 2019-10-19 20:41 | Surgery Progress Note ---
Surgery Progress Note Subjective Symptoms: improved, tolerating diet Objective Last 24 Hour Vital Signs Date Time Temp Pulse Resp B/P (MAP) Pulse Ox O2 Delivery O2 Flow Rate FiO2 10/19/19 16:00 97.7 86 19 128/78 (95) 94 10/19/19 12:00 97.5 87 19 147/82 (103) 94 10/19/19 09:00 Room Air 10/19/19 08:00 98.2 101 19 142/89 (106) 94 10/19/19 04:00 97.9 77 20 128/66 (86) 94 10/19/19 00:00 97.5 85 18 136/71 (92) 95 10/18/19 21:00 Room Air I&O Intake and Output 10/18/19 10/19/19 19:00 07:00 Intake Total 1465.0 ml 550 ml Output Total 450 ml Balance 1465.0 ml 100 ml Intake Oral 360 ml IV Total 1105.0 ml 550 ml Output Urine Total 450 ml # Voids 6 2 # Bowel Movements 1 Cardiovascular: RSR Respiratory: clear Abdomen: soft, non-tender, present bowel sounds Extremities: no edema, no tenderness, no cyanosis Laboratory Tests Test 10/19/19 04:30 10/19/19 06:19 10/19/19 17:42 White Blood Count 10.8 K/UL (4.8-10.8) Red Blood Count 3.55 M/UL (4.70-6.10) L Hemoglobin 11.1 G/DL (14.2-18.0) L Hematocrit 32.0 % (42.0-52.0) L Mean Corpuscular Volume 90 FL (80-99) Mean Corpuscular Hemoglobin 31.3 PG (27.0-31.0) H Mean Corpuscular Hemoglobin Concent 34.7 G/DL (32.0-36.0) Red Cell Distribution Width 11.1 % (11.6-14.8) L Platelet Count 204 K/UL (150-450) Mean Platelet Volume 6.8 FL (6.5-10.1) Neutrophils (%) (Auto) 78.3 % (45.0-75.0) H Lymphocytes (%) (Auto) 14.1 % (20.0-45.0) L Monocytes (%) (Auto) 6.3 % (1.0-10.0) Eosinophils (%) (Auto) 1.1 % (0.0-3.0) Basophils (%) (Auto) 0.3 % (0.0-2.0) Sodium Level 136 MMOL/L (136-145) Potassium Level 3.4 MMOL/L (3.5-5.1) L Chloride Level 98 MMOL/L (98-107) Carbon Dioxide Level 29 MMOL/L (21-32) Anion Gap 9 mmol/L (5-15) Blood Urea Nitrogen 3 mg/dL (7-18) L Creatinine 0.7 MG/DL (0.55-1.30) Estimat Glomerular Filtration Rate > 60 mL/min (>60) Glucose Level 144 MG/DL (74-106) H Calcium Level 8.1 MG/DL (8.5-10.1) L Phosphorus Level 2.4 MG/DL (2.5-4.9) L Magnesium Level 1.6 MG/DL (1.8-2.4) L Total Bilirubin 0.6 MG/DL (0.2-1.0) Aspartate Amino Transf (AST/SGOT) 22 U/L (15-37) Alanine Aminotransferase (ALT/SGPT) 45 U/L (12-78) Alkaline Phosphatase 85 U/L (46-116) Total Protein 6.1 G/DL (6.4-8.2) L Albumin 2.5 G/DL (3.4-5.0) L Globulin 3.6 g/dL Albumin/Globulin Ratio 0.7 (1.0-2.7) L POC Whole Blood Glucose 153 MG/DL (74-106) H 184 MG/DL (74-106) H Plan Problems: (1) Colon cancer (2) Pneumonia (3) Severe sepsis (4) Gallstone pancreatitis Assessment & Plan: 59-year-old male history of colon cancer chemo therapy resection doing well to recently developed arm pain nausea and vomiting. Identified to have severe acute gallstone pancreatitis. Abdomen tender but not in acute abdomen with peritonitis Currently no nausea vomiting leukocytosis lactic acidosis improving with resuscitation diet as tolerated IV fluids MRCP reviewed Trend labs We will follow with recommendations thank you for let me participate in patient' s care Given the severity of patient's acute severe gallstone pancreatitis would recommend cool down prior to cholecystectomy. Patient to have cholecystectomy but given the amount of pancreatic inflammation identified on CT and MRI would recommend allowing inflammation to settle and subside prior to surgical intervention. Patient can follow-up with his primary surgeon who performed multiple abdominal operations for his colon cancer to have procedure done or any surgeon within his network. Advance diet as tolerated. Okay to discharge from surgical standpoint. Pain management. Diet as tolerated Repeat CT identified. Acute severe pancreatitis small focus of potential necrosis unlikely infected. Continue antibiotics continue nonoperative management of acute severe pancreatitis Spoke to the daughter and the patient today. Recommend allowing acute inflammatory process to subside. And then can consider surgical intervention. Once improved okay for discharge outpatient follow-up Episode of emesis since remain n.p.o. with NG tube. KUB reviewed by myself. Likely minimal ileus. Discussed with GI. Continue NG decompression for now. Once improved will DC NG tube and resume oral diet. improved ng out diet started abx mild subsegmental basilar atelectasis, left more pronounced than right. No acute basilar infiltrate. Extensive peripancreatic edema system with severe, acute pancreatitis. No clear focal glandular necrosis. No loculated fluid collection. No hemorrhage or gas. Mild extrahepatic biliary dilation. Enhancing gallbladder wall. No radiopaque gallstone. Recommend correlation for elevated biliary markers in addition to pancreatic enzymes. Renal cysts and hypodensities that are too small to characterize. No hydronephrosis. Transverse colonic resection with intact anastomosis. No bowel obstruction. The appendix is unremarkable. Aortoiliac atherosclerosis without aneurysm. No acute fracture. Mild thoracolumbar spondylosis. IMPRESSION: Acute pancreatitis. Distended gallbladder and CBD. No radiopaque gallstone, but recommend clinical/laboratory correlation. Incidental findings as above. Gallbladder demonstrates filling defects consistent with gallstones. The gallbladder wall is mildly thickened and mildly edematous. The common hepatic duct is mildly ectatic, measuring up to 9 mm in diameter. The common bile duct is normal in caliber. No intraluminal filling defect or obstructing stone is demonstrated. There is somewhat low insertion of the cystic duct into the common hepatic duct The pancreas is enlarged and edematous, and considerable phlegmon is seen within upper abdominal fat, similar in distribution to that described on prior CT scan. No discrete walled off fluid collection demonstrated. The pancreatic duct is normal in caliber. No focal liver lesion demonstrated. The spleen, adrenals are unremarkable. The kidneys demonstrate cysts bilaterally. The included upper pelvis appears unremarkable. Impression: Evidence of acute pancreatitis, also described on recent CT scan. No discrete fluid collection to suggest abscess or early pseudocyst formation Cholelithiasis. Mild gallbladder wall thickening. This could be related to the adjacent pancreatic inflammation, or could indicate acute cholecystitis. Correlate with clinical findings, consider nuclear medicine hepatobiliary scan if clinically indicated Ectatic common hepatic duct demonstrated, significance/etiology uncertain. Normal caliber common bile duct. No definite downstream obstructive lesion Incidental finding of bilateral renal cysts (5) Pain Assessment & Plan: hand fx noted ortho input appreciated abd pain stable kub ordered and noted Yury Baxter Oct 19, 2019 20:41
[2019-10-19] MEDS: Dyna-Hex 2% Top Sol 2oz TOPIC SCH (20:43)
[2019-10-20] VITALS (7 sets, daily range): BP systolic 122–135; BP diastolic 68–77
[2019-10-20] MEDS: NovoLOG Insulin Flexpen SUBQ SCH ×2 (05:36→16:28)
[2019-10-20 06:22] LABS: BASOPHILS % (AUTO) 0.4 % (0.0-2.0); EOSINOPHILS % (AUTO) 1.1 % (0.0-3.0); HEMATOCRIT 32.3 % (42.0-52.0); MEAN CORPUSCULAR VOLUME 91 FL (80-99); MONOCYTES % (AUTO) 8.4 % (1.0-10.0); NEUTROPHILS % (AUTO) 73.1 % (45.0-75.0); PLATELET COUNT 217 K/UL (150-450); RED BLOOD COUNT 3.54 M/UL (4.70-6.10); RED CELL DISTRIBUTION WIDTH 11.2 % (11.6-14.8); WHITE BLOOD COUNT 6.8 K/UL (4.8-10.8)
[2019-10-20 06:27] LABS: ALANINE AMINOTRANSFERASE 36 U/L (12-78); ALBUMIN 2.5 G/DL (3.4-5.0); ALBUMIN/GLOBULIN RATIO 0.7 (1.0-2.7); ALKALINE PHOSPHATASE 71 U/L (46-116); ANION GAP 7 mmol/L (5-15); ASPARTATE AMINO TRANSFERASE 21 U/L (15-37); BILIRUBIN,TOTAL 0.5 MG/DL (0.2-1.0); BLOOD UREA NITROGEN 2 mg/dL (7-18); CALCIUM 8.2 MG/DL (8.5-10.1); CARBON DIOXIDE 29 MMOL/L (21-32); CHLORIDE 102 MMOL/L (98-107); CREATININE 0.7 MG/DL (0.55-1.30); PHOSPHORUS 3.8 MG/DL (2.5-4.9); POTASSIUM 3.7 MMOL/L (3.5-5.1); SODIUM 138 MMOL/L (136-145)
[2019-10-20] MEDS: Pancrelipase Dr Cap ORAL SCH ×3 (08:06→17:16)
[2019-10-20] MEDS: Lactobacillus-GG tablet ORAL SCH ×3 (08:06→17:16)
[2019-10-20] MEDS: Docusate 100mg cap ORAL SCH ×3 (08:06→17:16)
--- NOTE | 2019-10-20 08:57 | General Progress Note ---
Assessment/Plan Assessment/Plan: (1) Abdominal pain (2) Pancreatitis (3) H/o colon cancer (4) Ileus Patient to be continued on Dilaudid as needed D/w Dr. Waller and he concurred. Subjective Date patient seen: Oct 20, 2019 Time patient seen: 08:30 - am Allergies: Coded Allergies: No Known Allergies (Unverified , 10/10/19) Subjective REVIEW OF SYSTEMS: Denies rash, fever, chills, sweating, dizziness, drowsiness, blurred vision, ringing in ear, shortness of breath, chest pain, palpitations, or cough. No nausea, vomiting, diarrhea, or blood in stool or in the urine. No dysuria. He is complaining of abdominal pain. SUBJECTIVE: Patient c/o pain since starting the diet and has been tolerating it on the Dilaudid. Objective Last 24 Hour Vital Signs Date Time Temp Pulse Resp B/P (MAP) Pulse Ox O2 Delivery O2 Flow Rate FiO2 10/20/19 08:30 Room Air 10/20/19 08:00 98.0 75 18 122/68 (86) 96 10/20/19 05:54 96.4 10/20/19 04:00 96.4 77 19 128/72 (90) 95 10/20/19 00:00 98.2 82 20 130/75 (93) 96 10/19/19 21:00 Room Air 10/19/19 20:00 98.2 77 19 121/72 (88) 97 10/19/19 16:00 97.7 86 19 128/78 (95) 94 10/19/19 12:00 97.5 87 19 147/82 (103) 94 10/19/19 09:00 Room Air Intake and Output 10/19/19 10/20/19 19:00 07:00 Intake Total 2006.691 ml 650 ml Output Total 950 ml Balance 2006.691 ml -300 ml Intake Oral 720 ml 650 ml IV Total 1286.691 ml Output Urine Total 950 ml # Voids 4 Laboratory Tests 10/19/19 17:42: POC Whole Blood Glucose 184H 10/19/19 22:46: POC Whole Blood Glucose [Pending] 10/20/19 05:20: White Blood Count 6.8, Red Blood Count 3.54L, Hemoglobin 11.0L, Hematocrit 32.3L , Mean Corpuscular Volume 91, Mean Corpuscular Hemoglobin 31.1H, Mean Corpuscular Hemoglobin Concent 34.1, Red Cell Distribution Width 11.2L, Platelet Count 217, Mean Platelet Volume 6.4L, Neutrophils (%) (Auto) 73.1, Lymphocytes (%) (Auto) 17.0L, Monocytes (%) (Auto) 8.4, Eosinophils (%) (Auto) 1.1, Basophils (%) (Auto) 0.4, Sodium Level 138, Potassium Level 3.7, Chloride Level 102, Carbon Dioxide Level 29, Anion Gap 7, Blood Urea Nitrogen 2L, Creatinine 0.7, Estimat Glomerular Filtration Rate > 60, Glucose Level 160H, Calcium Level 8.2L, Phosphorus Level 3.8, Magnesium Level 1.9, Total Bilirubin 0.5, Aspartate Amino Transf (AST/SGOT) 21, Alanine Aminotransferase (ALT/SGPT) 36, Alkaline Phosphatase 71, Total Protein 6.2L, Albumin 2.5L, Globulin 3.7, Albumin/Globulin Ratio 0.7L Height (Feet): 5 Height (Inches): 8.00 Weight (Pounds): 151 Objective GENERAL: Alert, awake, and oriented. LUNGS: Decreased breath sounds bilaterally. HEART: S1 and S2 regular. ABDOMEN: Tenderness to palpation with surgical scar noted on midline of abdominal area. EXTREMITIES: No cyanosis. No clubbing. No edema. NEURO: No changes. Tucker Zamora Oct 20, 2019 08:57
[2019-10-20] MEDS: HYDROcodone/Acetamin 10/325 tab ORAL PRN (10:49)
--- NOTE | 2019-10-20 11:37 | Infectious Diseases Prog Note ---
Assessment/Plan Assessment/Plan antibiotics : ertapenem A 1. e.coli sepsis 2. acute pancreatitis improving 3. diabetes mellitus 4. hypertension 5. colon cancer P 1. continue ertapenem 3 more days 2. will follow up cultures Subjective Constitutional: Denies: fever, chills Respiratory: Denies: shortness of breath, dry cough Gastrointestinal/Abdominal: Denies: nausea, vomiting, diarrhea Musculoskeletal: Reports: pain - decreased abdominal Allergies: Coded Allergies: No Known Allergies (Unverified , 10/10/19) Objective Last 24 Hour Vital Signs Date Time Temp Pulse Resp B/P (MAP) Pulse Ox O2 Delivery O2 Flow Rate FiO2 10/20/19 08:30 Room Air 10/20/19 08:00 98.0 75 18 122/68 (86) 96 10/20/19 05:54 96.4 10/20/19 04:00 96.4 77 19 128/72 (90) 95 10/20/19 00:00 98.2 82 20 130/75 (93) 96 10/19/19 21:00 Room Air 10/19/19 20:00 98.2 77 19 121/72 (88) 97 10/19/19 16:00 97.7 86 19 128/78 (95) 94 10/19/19 12:00 97.5 87 19 147/82 (103) 94 Height (Feet): 5 Height (Inches): 8.00 Weight (Pounds): 151 Respiratory/Chest: lungs clear Cardiovascular: normal rate, regular rhythm, no gallop/murmur Abdomen: tender Extremities: no edema, other - right subclavian catheter and right arm PICC Laboratory Tests Test 10/19/19 17:42 10/19/19 22:46 10/20/19 05:20 POC Whole Blood Glucose 184 MG/DL (74-106) H Pending White Blood Count 6.8 K/UL (4.8-10.8) Red Blood Count 3.54 M/UL (4.70-6.10) L Hemoglobin 11.0 G/DL (14.2-18.0) L Hematocrit 32.3 % (42.0-52.0) L Mean Corpuscular Volume 91 FL (80-99) Mean Corpuscular Hemoglobin 31.1 PG (27.0-31.0) H Mean Corpuscular Hemoglobin Concent 34.1 G/DL (32.0-36.0) Red Cell Distribution Width 11.2 % (11.6-14.8) L Platelet Count 217 K/UL (150-450) Mean Platelet Volume 6.4 FL (6.5-10.1) L Neutrophils (%) (Auto) 73.1 % (45.0-75.0) Lymphocytes (%) (Auto) 17.0 % (20.0-45.0) L Monocytes (%) (Auto) 8.4 % (1.0-10.0) Eosinophils (%) (Auto) 1.1 % (0.0-3.0) Basophils (%) (Auto) 0.4 % (0.0-2.0) Sodium Level 138 MMOL/L (136-145) Potassium Level 3.7 MMOL/L (3.5-5.1) Chloride Level 102 MMOL/L (98-107) Carbon Dioxide Level 29 MMOL/L (21-32) Anion Gap 7 mmol/L (5-15) Blood Urea Nitrogen 2 mg/dL (7-18) L Creatinine 0.7 MG/DL (0.55-1.30) Estimat Glomerular Filtration Rate > 60 mL/min (>60) Glucose Level 160 MG/DL (74-106) H Calcium Level 8.2 MG/DL (8.5-10.1) L Phosphorus Level 3.8 MG/DL (2.5-4.9) Magnesium Level 1.9 MG/DL (1.8-2.4) Total Bilirubin 0.5 MG/DL (0.2-1.0) Aspartate Amino Transf (AST/SGOT) 21 U/L (15-37) Alanine Aminotransferase (ALT/SGPT) 36 U/L (12-78) Alkaline Phosphatase 71 U/L (46-116) Total Protein 6.2 G/DL (6.4-8.2) L Albumin 2.5 G/DL (3.4-5.0) L Globulin 3.7 g/dL Albumin/Globulin Ratio 0.7 (1.0-2.7) L Current Medications Medications (Trade) Dose Ordered Sig/Freida Route PRN Reason Start Time Stop Time Status Last Admin Dose Admin Acetaminophen (Tylenol) 500 mg Q6H PRN ORAL Temp >100.5 10/12/19 14:30 11/11/19 14:29 10/12/19 14:37 Acetaminophen (Tylenol) 500 mg Q6H PRN ORAL Mild Pain (Pain Scale 1-3) 10/12/19 14:30 11/11/19 14:29 Acetaminophen/ Hydrocodone Bitart ([place] 10/325) 1 tab Q4H PRN ORAL Moderate Pain (Pain Scale 4-6) 10/20/19 10:30 10/27/19 10:29 10/20/19 10:49 Amylase/Lipase/ Protease (Zenpep) 2 ea THREE TIMES A DAY ORAL 10/19/19 13:00 01/17/20 12:59 10/20/19 08:06 Chlorhexidine Gluconate (Janett-Hex 2%) 1 applic DAILY@2000 TOPIC 10/17/19 20:00 01/15/20 19:59 10/19/19 20:43 Clonidine HCl (Catapres TTS-3) 1 patch QWEEK TDERMAL 10/17/19 14:00 01/15/20 13:59 10/17/19 15:09 Dextrose (Dextrose 50%) 25 ml Q30M PRN IV Hypoglycemia 10/11/19 14:00 01/09/20 10:59 Dextrose (Dextrose 50%) 50 ml Q30M PRN IV Hypoglycemia 10/11/19 14:00 01/09/20 10:59 Dextrose/ Electrolytes 1,000 ml @ 50 mls/hr Q20H IV 10/17/19 14:00 11/16/19 13:59 10/19/19 21:59 Docusate Sodium (Colace) 100 mg TID ORAL 10/19/19 13:00 11/17/19 17:59 10/20/19 08:06 Enalaprilat (Vasotec) 2.5 mg Q4H PRN IV SBP>165 10/17/19 17:00 11/16/19 16:59 Ertapenem 1 gm/ Sodium Chloride 55 ml @ 110 mls/hr Q24H IVPB 10/18/19 13:00 10/23/19 12:59 10/19/19 16:08 Hydromorphone HCl (Dilaudid) 1 mg Q6H PRN IVP Severe Pain 10/20/19 10:45 10/27/19 10:44 Insulin Aspart (NovoLOG) BIAC SUBQ 10/11/19 16:30 01/09/20 11:29 10/20/19 05:36 Lactobacillus Acidophilus (Culturelle) 1 tab THREE TIMES A DAY ORAL 10/15/19 13:00 01/13/20 12:59 10/20/19 08:06 Magnesium Hydroxide (Mom) 30 ml DAILYPRN PRN ORAL Constipation 10/18/19 11:45 11/17/19 11:44 Naloxone HCl (Narcan) 0.2 mg Q2M PRN IVP respritory depression 10/16/19 12:15 01/14/20 12:14 Ondansetron HCl (Zofran) 4 mg Q4H PRN IVP Nausea & Vomiting 10/11/19 17:30 11/09/19 17:29 10/19/19 22:13 Pantoprazole (Protonix) 40 mg BID ORAL 10/19/19 18:00 11/18/19 17:59 10/20/19 08:06 Mario Sawyer MD Oct 20, 2019 11:37
[2019-10-20] MEDS: Ertapenem 1 GM in NS 55 ML IVPB SCH (12:17)
--- NOTE | 2019-10-20 12:23 | General Progress Note ---
Assessment/Plan Assessment/Plan: Assessment - acute gallstone pancreatitis - 2.5 cm suspected early pancreatic necrosis - bowel distention / ileus - abd pain - cholelithiasis - leukocytosis - better - h/o colon CA Recommendations - abx - IVF - monitor labs -advance diet -on creon- possible dc for tomorrow - eventual lap hieu Subjective ROS Limited/Unobtainable: Yes Allergies: Coded Allergies: No Known Allergies (Unverified , 10/10/19) Objective Last 24 Hour Vital Signs Date Time Temp Pulse Resp B/P (MAP) Pulse Ox O2 Delivery O2 Flow Rate FiO2 10/20/19 12:01 97.5 86 19 130/77 (94) 97 10/20/19 08:30 Room Air 10/20/19 08:00 98.0 75 18 122/68 (86) 96 10/20/19 05:54 96.4 10/20/19 04:00 96.4 77 19 128/72 (90) 95 10/20/19 00:00 98.2 82 20 130/75 (93) 96 10/19/19 21:00 Room Air 10/19/19 20:00 98.2 77 19 121/72 (88) 97 10/19/19 16:00 97.7 86 19 128/78 (95) 94 Intake and Output 10/19/19 10/20/19 19:00 07:00 Intake Total 2006.691 ml 700 ml Output Total 950 ml Balance 2006.691 ml -250 ml Intake Oral 720 ml 650 ml IV Total 1286.691 ml 50 ml Output Urine Total 950 ml # Voids 4 Laboratory Tests 10/19/19 17:42: POC Whole Blood Glucose 184H 10/19/19 22:46: POC Whole Blood Glucose [Pending] 10/20/19 05:20: White Blood Count 6.8, Red Blood Count 3.54L, Hemoglobin 11.0L, Hematocrit 32.3L , Mean Corpuscular Volume 91, Mean Corpuscular Hemoglobin 31.1H, Mean Corpuscular Hemoglobin Concent 34.1, Red Cell Distribution Width 11.2L, Platelet Count 217, Mean Platelet Volume 6.4L, Neutrophils (%) (Auto) 73.1, Lymphocytes (%) (Auto) 17.0L, Monocytes (%) (Auto) 8.4, Eosinophils (%) (Auto) 1.1, Basophils (%) (Auto) 0.4, Sodium Level 138, Potassium Level 3.7, Chloride Level 102, Carbon Dioxide Level 29, Anion Gap 7, Blood Urea Nitrogen 2L, Creatinine 0.7, Estimat Glomerular Filtration Rate > 60, Glucose Level 160H, Calcium Level 8.2L, Phosphorus Level 3.8, Magnesium Level 1.9, Total Bilirubin 0.5, Aspartate Amino Transf (AST/SGOT) 21, Alanine Aminotransferase (ALT/SGPT) 36, Alkaline Phosphatase 71, Total Protein 6.2L, Albumin 2.5L, Globulin 3.7, Albumin/Globulin Ratio 0.7L Height (Feet): 5 Height (Inches): 8.00 Weight (Pounds): 151 General Appearance: alert EENT: normal ENT inspection Neck: supple Cardiovascular: normal rate Respiratory/Chest: decreased breath sounds Abdomen: normal bowel sounds, non tender, soft Ken Justin MD Oct 20, 2019 12:23
--- NOTE | 2019-10-20 12:59 | Nephrology Progress Note ---
Assessment/Plan Problem List: (1) Electrolyte imbalance (2) Colon cancer (3) Gallstone pancreatitis (4) HTN (hypertension) (5) Anemia Assessment Severe hypokalemia Hyponatremia Anemia Hypertension History of diabetes mellitus Colon cancer Pneumonia Sepsis Gallstone pancreatitis BPH Plan More potassium and phosphorus supplement IV ordered Was started on clear liquid diet IV fluid: Adjust to D5 normal saline with KCl rate of 50 cc an hour IV Protonix NG discontinued by GI Clonidine patch for blood pressure PRN enalapril for high blood pressure Monitor electrolytes Per orders Subjective ROS Limited/Unobtainable: No Constitutional: Reports: malaise Objective Objective Last 24 Hour Vital Signs Date Time Temp Pulse Resp B/P (MAP) Pulse Ox O2 Delivery O2 Flow Rate FiO2 10/20/19 12:01 97.5 86 19 130/77 (94) 97 10/20/19 08:30 Room Air 10/20/19 08:00 98.0 75 18 122/68 (86) 96 10/20/19 05:54 96.4 10/20/19 04:00 96.4 77 19 128/72 (90) 95 10/20/19 00:00 98.2 82 20 130/75 (93) 96 10/19/19 21:00 Room Air 10/19/19 20:00 98.2 77 19 121/72 (88) 97 10/19/19 16:00 97.7 86 19 128/78 (95) 94 Intake and Output 10/19/19 10/20/19 19:00 07:00 Intake Total 2006.691 ml 700 ml Output Total 950 ml Balance 2006.691 ml -250 ml Intake Oral 720 ml 650 ml IV Total 1286.691 ml 50 ml Output Urine Total 950 ml # Voids 4 Laboratory Tests 10/19/19 17:42: POC Whole Blood Glucose 184H 10/19/19 22:46: POC Whole Blood Glucose [Pending] 10/20/19 05:20: White Blood Count 6.8, Red Blood Count 3.54L, Hemoglobin 11.0L, Hematocrit 32.3L , Mean Corpuscular Volume 91, Mean Corpuscular Hemoglobin 31.1H, Mean Corpuscular Hemoglobin Concent 34.1, Red Cell Distribution Width 11.2L, Platelet Count 217, Mean Platelet Volume 6.4L, Neutrophils (%) (Auto) 73.1, Lymphocytes (%) (Auto) 17.0L, Monocytes (%) (Auto) 8.4, Eosinophils (%) (Auto) 1.1, Basophils (%) (Auto) 0.4, Sodium Level 138, Potassium Level 3.7, Chloride Level 102, Carbon Dioxide Level 29, Anion Gap 7, Blood Urea Nitrogen 2L, Creatinine 0.7, Estimat Glomerular Filtration Rate > 60, Glucose Level 160H, Calcium Level 8.2L, Phosphorus Level 3.8, Magnesium Level 1.9, Total Bilirubin 0.5, Aspartate Amino Transf (AST/SGOT) 21, Alanine Aminotransferase (ALT/SGPT) 36, Alkaline Phosphatase 71, Total Protein 6.2L, Albumin 2.5L, Globulin 3.7, Albumin/Globulin Ratio 0.7L Height (Feet): 5 Height (Inches): 8.00 Weight (Pounds): 151 General Appearance: no apparent distress Cardiovascular: normal rate Respiratory/Chest: decreased breath sounds Abdomen: distended Fantasma Cast MD Oct 20, 2019 12:59
--- NOTE | 2019-10-20 14:07 | Surgery Progress Note ---
Surgery Progress Note Subjective Symptoms: improved, tolerating diet, voiding well, passing flatus, BM, pain decreased Objective Last 24 Hour Vital Signs Date Time Temp Pulse Resp B/P (MAP) Pulse Ox O2 Delivery O2 Flow Rate FiO2 10/20/19 12:01 97.5 86 19 130/77 (94) 97 10/20/19 08:30 Room Air 10/20/19 08:00 98.0 75 18 122/68 (86) 96 10/20/19 05:54 96.4 10/20/19 04:00 96.4 77 19 128/72 (90) 95 10/20/19 00:00 98.2 82 20 130/75 (93) 96 10/19/19 21:00 Room Air 10/19/19 20:00 98.2 77 19 121/72 (88) 97 10/19/19 16:00 97.7 86 19 128/78 (95) 94 I&O Intake and Output 10/19/19 10/20/19 19:00 07:00 Intake Total 2006.691 ml 700 ml Output Total 950 ml Balance 2006.691 ml -250 ml Intake Oral 720 ml 650 ml IV Total 1286.691 ml 50 ml Output Urine Total 950 ml # Voids 4 Cardiovascular: RSR Respiratory: clear Abdomen: soft, non-tender, present bowel sounds, non-distended Extremities: no edema, no tenderness, no cyanosis Laboratory Tests Test 10/19/19 17:42 10/19/19 22:46 10/20/19 05:20 POC Whole Blood Glucose 184 MG/DL (74-106) H Pending White Blood Count 6.8 K/UL (4.8-10.8) Red Blood Count 3.54 M/UL (4.70-6.10) L Hemoglobin 11.0 G/DL (14.2-18.0) L Hematocrit 32.3 % (42.0-52.0) L Mean Corpuscular Volume 91 FL (80-99) Mean Corpuscular Hemoglobin 31.1 PG (27.0-31.0) H Mean Corpuscular Hemoglobin Concent 34.1 G/DL (32.0-36.0) Red Cell Distribution Width 11.2 % (11.6-14.8) L Platelet Count 217 K/UL (150-450) Mean Platelet Volume 6.4 FL (6.5-10.1) L Neutrophils (%) (Auto) 73.1 % (45.0-75.0) Lymphocytes (%) (Auto) 17.0 % (20.0-45.0) L Monocytes (%) (Auto) 8.4 % (1.0-10.0) Eosinophils (%) (Auto) 1.1 % (0.0-3.0) Basophils (%) (Auto) 0.4 % (0.0-2.0) Sodium Level 138 MMOL/L (136-145) Potassium Level 3.7 MMOL/L (3.5-5.1) Chloride Level 102 MMOL/L (98-107) Carbon Dioxide Level 29 MMOL/L (21-32) Anion Gap 7 mmol/L (5-15) Blood Urea Nitrogen 2 mg/dL (7-18) L Creatinine 0.7 MG/DL (0.55-1.30) Estimat Glomerular Filtration Rate > 60 mL/min (>60) Glucose Level 160 MG/DL (74-106) H Calcium Level 8.2 MG/DL (8.5-10.1) L Phosphorus Level 3.8 MG/DL (2.5-4.9) Magnesium Level 1.9 MG/DL (1.8-2.4) Total Bilirubin 0.5 MG/DL (0.2-1.0) Aspartate Amino Transf (AST/SGOT) 21 U/L (15-37) Alanine Aminotransferase (ALT/SGPT) 36 U/L (12-78) Alkaline Phosphatase 71 U/L (46-116) Total Protein 6.2 G/DL (6.4-8.2) L Albumin 2.5 G/DL (3.4-5.0) L Globulin 3.7 g/dL Albumin/Globulin Ratio 0.7 (1.0-2.7) L Plan Problems: (1) Colon cancer (2) Pneumonia (3) Severe sepsis (4) Gallstone pancreatitis Assessment & Plan: 59-year-old male history of colon cancer chemo therapy resection doing well to recently developed arm pain nausea and vomiting. Identified to have severe acute gallstone pancreatitis. Abdomen tender but not in acute abdomen with peritonitis Currently no nausea vomiting leukocytosis lactic acidosis improving with resuscitation diet as tolerated IV fluids MRCP reviewed Trend labs We will follow with recommendations thank you for let me participate in patient' s care Given the severity of patient's acute severe gallstone pancreatitis would recommend cool down prior to cholecystectomy. Patient to have cholecystectomy but given the amount of pancreatic inflammation identified on CT and MRI would recommend allowing inflammation to settle and subside prior to surgical intervention. Patient can follow-up with his primary surgeon who performed multiple abdominal operations for his colon cancer to have procedure done or any surgeon within his network. Advance diet as tolerated. Okay to discharge from surgical standpoint. Pain management. Diet as tolerated Repeat CT identified. Acute severe pancreatitis small focus of potential necrosis unlikely infected. Continue antibiotics continue nonoperative management of acute severe pancreatitis Spoke to the daughter and the patient today. Recommend allowing acute inflammatory process to subside. And then can consider surgical intervention. Once improved okay for discharge outpatient follow-up Episode of emesis since remain n.p.o. with NG tube. KUB reviewed by myself. Likely minimal ileus. Discussed with GI. Continue NG decompression for now. Once improved will DC NG tube and resume oral diet. improved ng out diet started abx mild subsegmental basilar atelectasis, left more pronounced than right. No acute basilar infiltrate. Extensive peripancreatic edema system with severe, acute pancreatitis. No clear focal glandular necrosis. No loculated fluid collection. No hemorrhage or gas. Mild extrahepatic biliary dilation. Enhancing gallbladder wall. No radiopaque gallstone. Recommend correlation for elevated biliary markers in addition to pancreatic enzymes. Renal cysts and hypodensities that are too small to characterize. No hydronephrosis. Transverse colonic resection with intact anastomosis. No bowel obstruction. The appendix is unremarkable. Aortoiliac atherosclerosis without aneurysm. No acute fracture. Mild thoracolumbar spondylosis. IMPRESSION: Acute pancreatitis. Distended gallbladder and CBD. No radiopaque gallstone, but recommend clinical/laboratory correlation. Incidental findings as above. Gallbladder demonstrates filling defects consistent with gallstones. The gallbladder wall is mildly thickened and mildly edematous. The common hepatic duct is mildly ectatic, measuring up to 9 mm in diameter. The common bile duct is normal in caliber. No intraluminal filling defect or obstructing stone is demonstrated. There is somewhat low insertion of the cystic duct into the common hepatic duct The pancreas is enlarged and edematous, and considerable phlegmon is seen within upper abdominal fat, similar in distribution to that described on prior CT scan. No discrete walled off fluid collection demonstrated. The pancreatic duct is normal in caliber. No focal liver lesion demonstrated. The spleen, adrenals are unremarkable. The kidneys demonstrate cysts bilaterally. The included upper pelvis appears unremarkable. Impression: Evidence of acute pancreatitis, also described on recent CT scan. No discrete fluid collection to suggest abscess or early pseudocyst formation Cholelithiasis. Mild gallbladder wall thickening. This could be related to the adjacent pancreatic inflammation, or could indicate acute cholecystitis. Correlate with clinical findings, consider nuclear medicine hepatobiliary scan if clinically indicated Ectatic common hepatic duct demonstrated, significance/etiology uncertain. Normal caliber common bile duct. No definite downstream obstructive lesion Incidental finding of bilateral renal cysts pain resolving tolerating diet much improved hand improved d/c f/u outpt with pcp and surgeon (5) Pain Assessment & Plan: hand fx noted ortho input appreciated abd pain stable kub ordered and noted Yury Baxter Oct 20, 2019 14:07
--- NOTE | 2019-10-20 16:45 | Progress Note ---
DATE: 10/20/2019 SUBJECTIVE: This is a 59-year-old male currently doing better, but is still asking pain medication every 3 hours. The patient is in bed, tolerating liquid diet. Discussed with daughter who was on bedside. Discussed with also . The patient needs to go see outpatient his primary care doctor as well as Surgery for cholecystectomy. The patient is physically doing better. OBJECTIVE: VITAL SIGNS: Blood pressure is 122/68, pulse 75, temperature 98. ABDOMEN: Mild tenderness on palpation, but good bowel sounds. ASSESSMENT: 1. History of acute pancreatitis, resolving. 2. History of cholecystectomy. 3. History of colon CA. PLAN: Diet, soft diet. We will change his pain medication. We will change the Dilaudid to every 6 hours p.r.n. and adding [place]. Discharge plan home for pain management. Discussed with the daughter, who was on bedside. Mercedes Rodriguez RP JOB#: [id number] CC:
[2019-10-20] MEDS: Dyna-Hex 2% Top Sol 2oz TOPIC SCH (21:05)
[2019-10-21 04:00] VITALS: BP 130/71
[2019-10-21] MEDS: NovoLOG Insulin Flexpen SUBQ SCH ×2 (05:33→16:30)
[2019-10-21 08:00] VITALS: BP 122/68
[2019-10-21] MEDS: Docusate 100mg cap ORAL SCH ×2 (08:19→13:12)
[2019-10-21] MEDS: Lactobacillus-GG tablet ORAL SCH ×2 (08:19→13:12)
[2019-10-21] MEDS: Pancrelipase Dr Cap ORAL SCH ×2 (08:19→13:12)
--- NOTE | 2019-10-21 10:11 | General Progress Note ---
Assessment/Plan Assessment/Plan: (1) Abdominal pain (2) Pancreatitis (3) H/o colon cancer (4) Ileus Patient to be discontinued off Dilaudid and continued [place] 10/325mg PO 1 tab Q4H PRN pain An Rx for [place] 10/325mg 15 tabs was written for patient in anticipation for discharge. D/w Dr. Waller and he concurred. Subjective Date patient seen: Oct 21, 2019 Time patient seen: 09:30 - am Allergies: Coded Allergies: No Known Allergies (Unverified , 10/10/19) Subjective REVIEW OF SYSTEMS: Denies rash, fever, chills, sweating, dizziness, drowsiness, blurred vision, ringing in ear, shortness of breath, chest pain, palpitations, or cough. No nausea, vomiting, diarrhea, or blood in stool or in the urine. No dysuria. He is complaining of abdominal pain. SUBJECTIVE: Patient reports that the pain has been better and is eating. D/w him about discontinuing the Dilaudid and continuing the [place]. He seems to understand. Objective Last 24 Hour Vital Signs Date Time Temp Pulse Resp B/P (MAP) Pulse Ox O2 Delivery O2 Flow Rate FiO2 10/21/19 08:00 97.8 81 20 122/68 (86) 100 10/21/19 05:11 97.6 10/21/19 04:00 97.8 87 20 130/71 (90) 98 10/20/19 23:52 97.6 85 20 128/74 (92) 97 10/20/19 21:00 Room Air 10/20/19 20:00 97.3 82 20 132/71 (91) 98 10/20/19 16:00 97.7 83 20 135/73 (93) 97 10/20/19 12:01 97.5 86 19 130/77 (94) 97 Intake and Output 10/20/19 10/21/19 19:00 07:00 Intake Total 2205 ml 1350 ml Output Total 750 ml Balance 2205 ml 600 ml Intake Oral 1600 ml 900 ml IV Total 605 ml 450 ml Output Urine Total 750 ml # Voids 6 # Bowel Movements 1 Laboratory Tests 10/20/19 16:27: POC Whole Blood Glucose 136H Height (Feet): 5 Height (Inches): 8.00 Weight (Pounds): 151 Objective GENERAL: Alert, awake, and oriented. LUNGS: Decreased breath sounds bilaterally. HEART: S1 and S2 regular. ABDOMEN: Tenderness to palpation with surgical scar noted on midline of abdominal area. EXTREMITIES: No cyanosis. No clubbing. No edema. NEURO: No changes. Tucker Zamora Oct 21, 2019 10:11
--- NOTE | 2019-10-21 10:12 | General Progress Note ---
Assessment/Plan Assessment/Plan: Assessment - acute gallstone pancreatitis - 2.5 cm suspected early pancreatic necrosis - bowel distention / ileus - abd pain - cholelithiasis - leukocytosis - better - h/o colon CA Recommendations - abx - IVF - monitor labs -advance diet -on creon- -pending possible dc - eventual lap hieu Subjective ROS Limited/Unobtainable: Yes Allergies: Coded Allergies: No Known Allergies (Unverified , 10/10/19) Objective Last 24 Hour Vital Signs Date Time Temp Pulse Resp B/P (MAP) Pulse Ox O2 Delivery O2 Flow Rate FiO2 10/21/19 08:00 97.8 81 20 122/68 (86) 100 10/21/19 05:11 97.6 10/21/19 04:00 97.8 87 20 130/71 (90) 98 10/20/19 23:52 97.6 85 20 128/74 (92) 97 10/20/19 21:00 Room Air 10/20/19 20:00 97.3 82 20 132/71 (91) 98 10/20/19 16:00 97.7 83 20 135/73 (93) 97 10/20/19 12:01 97.5 86 19 130/77 (94) 97 Intake and Output 10/20/19 10/21/19 19:00 07:00 Intake Total 2205 ml 1350 ml Output Total 750 ml Balance 2205 ml 600 ml Intake Oral 1600 ml 900 ml IV Total 605 ml 450 ml Output Urine Total 750 ml # Voids 6 # Bowel Movements 1 Laboratory Tests 10/20/19 16:27: POC Whole Blood Glucose 136H Height (Feet): 5 Height (Inches): 8.00 Weight (Pounds): 151 General Appearance: alert EENT: normal ENT inspection Neck: supple Cardiovascular: normal rate Respiratory/Chest: decreased breath sounds Abdomen: normal bowel sounds, non tender, soft Extremities: non-tender Ken Justin MD Oct 21, 2019 10:12
--- NOTE | 2019-10-21 10:24 | Nephrology Progress Note ---
Assessment/Plan Problem List: (1) Electrolyte imbalance (2) Colon cancer (3) Gallstone pancreatitis (4) HTN (hypertension) (5) Anemia Assessment Severe hypokalemia Hyponatremia Anemia Hypertension History of diabetes mellitus Colon cancer Pneumonia Sepsis Gallstone pancreatitis BPH Plan Remains stable from renal standpoint to view potassium and phosphorus as needed Diet is advanced Will DC IV fluid Change IV Protonix to p.o. DC clonidine patch PRN clonidine for high blood pressure Monitor electrolytes Per orders Subjective ROS Limited/Unobtainable: No Constitutional: Reports: other - Feels stronger Objective Objective Last 24 Hour Vital Signs Date Time Temp Pulse Resp B/P (MAP) Pulse Ox O2 Delivery O2 Flow Rate FiO2 10/21/19 08:00 97.8 81 20 122/68 (86) 100 10/21/19 05:11 97.6 10/21/19 04:00 97.8 87 20 130/71 (90) 98 10/20/19 23:52 97.6 85 20 128/74 (92) 97 10/20/19 21:00 Room Air 10/20/19 20:00 97.3 82 20 132/71 (91) 98 10/20/19 16:00 97.7 83 20 135/73 (93) 97 10/20/19 12:01 97.5 86 19 130/77 (94) 97 Intake and Output 10/20/19 10/21/19 18:59 06:59 Intake Total 2205 ml 1400 ml Output Total 750 ml Balance 2205 ml 650 ml Intake Oral 1600 ml 900 ml IV Total 605 ml 500 ml Output Urine Total 750 ml # Voids 6 # Bowel Movements 1 Laboratory Tests 10/20/19 16:27: POC Whole Blood Glucose 136H Height (Feet): 5 Height (Inches): 8.00 Weight (Pounds): 151 General Appearance: no apparent distress Cardiovascular: normal rate Respiratory/Chest: lungs clear Abdomen: distended Fantasma Cast MD Oct 21, 2019 10:24
[2019-10-21 12:00] VITALS: BP 125/65
--- NOTE | 2019-10-21 12:51 | Infectious Diseases Prog Note ---
Assessment/Plan Assessment/Plan A 1. E.coli sepsis 2. acute pancreatitis 3. diabetes mellitus 4. hypertension 5. colon cancer P 1. continue Ertapenem X2 days 2. Case was D/W daughter Subjective ROS Limited/Unobtainable: Yes Constitutional: Reports: no symptoms Respiratory: Reports: no symptoms Genitourinary: Reports: no symptoms Allergies: Coded Allergies: No Known Allergies (Unverified , 10/10/19) Objective Last 24 Hour Vital Signs Date Time Temp Pulse Resp B/P (MAP) Pulse Ox O2 Delivery O2 Flow Rate FiO2 10/21/19 08:00 97.8 81 20 122/68 (86) 100 10/21/19 05:11 97.6 10/21/19 04:00 97.8 87 20 130/71 (90) 98 10/20/19 23:52 97.6 85 20 128/74 (92) 97 10/20/19 21:00 Room Air 10/20/19 20:00 97.3 82 20 132/71 (91) 98 10/20/19 16:00 97.7 83 20 135/73 (93) 97 Height (Feet): 5 Height (Inches): 8.00 Weight (Pounds): 151 General Appearance: no acute distress HEENT: mucous membranes moist Respiratory/Chest: lungs clear Cardiovascular: normal rate, other - R arm PICC line Extremities: no edema Neurologic/Psychiatric: alert, oriented x 3, responsive Laboratory Tests Test 10/20/19 16:27 POC Whole Blood Glucose 136 MG/DL (74-106) H Current Medications Medications (Trade) Dose Ordered Sig/Freida Route PRN Reason Start Time Stop Time Status Last Admin Dose Admin Acetaminophen (Tylenol) 500 mg Q6H PRN ORAL Temp >100.5 10/12/19 14:30 11/11/19 14:29 10/12/19 14:37 Acetaminophen (Tylenol) 500 mg Q6H PRN ORAL Mild Pain (Pain Scale 1-3) 10/12/19 14:30 11/11/19 14:29 Acetaminophen/ Hydrocodone Bitart (Duvall 10/325) 1 tab Q4H PRN ORAL Moderate Pain (Pain Scale 4-6) 10/20/19 10:30 10/27/19 10:29 10/20/19 10:49 Amylase/Lipase/ Protease (Zenpep) 2 ea THREE TIMES A DAY ORAL 10/19/19 13:00 01/17/20 12:59 10/21/19 08:19 Chlorhexidine Gluconate (Janett-Hex 2%) 1 applic DAILY@2000 TOPIC 10/17/19 20:00 01/15/20 19:59 10/20/19 21:05 Clonidine HCl (Catapres TTS-3) 1 patch QWEEK TDERMAL 10/17/19 14:00 01/15/20 13:59 10/17/19 15:09 Dextrose (Dextrose 50%) 25 ml Q30M PRN IV Hypoglycemia 10/11/19 14:00 01/09/20 10:59 Dextrose (Dextrose 50%) 50 ml Q30M PRN IV Hypoglycemia 10/11/19 14:00 01/09/20 10:59 Dextrose/ Electrolytes 1,000 ml @ 50 mls/hr Q20H IV 10/17/19 14:00 11/16/19 13:59 10/20/19 21:05 Docusate Sodium (Colace) 100 mg TID ORAL 10/19/19 13:00 11/17/19 17:59 10/21/19 08:19 Enalaprilat (Vasotec) 2.5 mg Q4H PRN IV SBP>165 10/17/19 17:00 11/16/19 16:59 Ertapenem 1 gm/ Sodium Chloride 55 ml @ 110 mls/hr Q24H IVPB 10/18/19 13:00 10/23/19 23:59 10/20/19 12:17 Insulin Aspart (NovoLOG) BIAC SUBQ 10/11/19 16:30 01/09/20 11:29 10/21/19 05:33 Lactobacillus Acidophilus (Culturelle) 1 tab THREE TIMES A DAY ORAL 10/15/19 13:00 01/13/20 12:59 10/21/19 08:19 Magnesium Hydroxide (Mom) 30 ml DAILYPRN PRN ORAL Constipation 10/18/19 11:45 11/17/19 11:44 Naloxone HCl (Narcan) 0.2 mg Q2M PRN IVP respritory depression 10/16/19 12:15 01/14/20 12:14 Ondansetron HCl (Zofran) 4 mg Q4H PRN IVP Nausea & Vomiting 10/11/19 17:30 11/09/19 17:29 10/19/19 22:13 Pantoprazole (Protonix) 40 mg BID ORAL 10/19/19 18:00 11/18/19 17:59 10/21/19 08:19 Cullen Lobo MD Oct 21, 2019 12:51
[2019-10-21] MEDS: HYDROcodone/Acetamin 10/325 tab ORAL PRN (13:11)
[2019-10-21] MEDS: Ertapenem 1 GM in NS 55 ML IVPB SCH (13:12)
--- NOTE | 2019-10-21 14:20 | Surgery Progress Note ---
Surgery Progress Note Subjective Symptoms: improved, tolerating diet, voiding well Objective Last 24 Hour Vital Signs Date Time Temp Pulse Resp B/P (MAP) Pulse Ox O2 Delivery O2 Flow Rate FiO2 10/21/19 12:00 98.5 85 20 125/65 (85) 100 10/21/19 09:00 Room Air 10/21/19 08:00 97.8 81 20 122/68 (86) 100 10/21/19 05:11 97.6 10/21/19 04:00 97.8 87 20 130/71 (90) 98 10/20/19 23:52 97.6 85 20 128/74 (92) 97 10/20/19 21:00 Room Air 10/20/19 20:00 97.3 82 20 132/71 (91) 98 10/20/19 16:00 97.7 83 20 135/73 (93) 97 I&O Intake and Output 10/20/19 10/21/19 19:00 07:00 Intake Total 2205 ml 1350 ml Output Total 750 ml Balance 2205 ml 600 ml Intake Oral 1600 ml 900 ml IV Total 605 ml 450 ml Output Urine Total 750 ml # Voids 6 # Bowel Movements 1 Cardiovascular: RSR Respiratory: clear Abdomen: soft, non-tender, present bowel sounds Extremities: no edema, no tenderness, no cyanosis Laboratory Tests Test 10/20/19 16:27 POC Whole Blood Glucose 136 MG/DL (74-106) H Plan Problems: (1) Colon cancer (2) Pneumonia (3) Severe sepsis (4) Gallstone pancreatitis Assessment & Plan: 59-year-old male history of colon cancer chemo therapy resection doing well to recently developed arm pain nausea and vomiting. Identified to have severe acute gallstone pancreatitis. Abdomen tender but not in acute abdomen with peritonitis Currently no nausea vomiting leukocytosis lactic acidosis improving with resuscitation diet as tolerated IV fluids MRCP reviewed Trend labs We will follow with recommendations thank you for let me participate in patient' s care Given the severity of patient's acute severe gallstone pancreatitis would recommend cool down prior to cholecystectomy. Patient to have cholecystectomy but given the amount of pancreatic inflammation identified on CT and MRI would recommend allowing inflammation to settle and subside prior to surgical intervention. Patient can follow-up with his primary surgeon who performed multiple abdominal operations for his colon cancer to have procedure done or any surgeon within his network. Advance diet as tolerated. Okay to discharge from surgical standpoint. Pain management. Diet as tolerated Repeat CT identified. Acute severe pancreatitis small focus of potential necrosis unlikely infected. Continue antibiotics continue nonoperative management of acute severe pancreatitis Spoke to the daughter and the patient today. Recommend allowing acute inflammatory process to subside. And then can consider surgical intervention. Once improved okay for discharge outpatient follow-up Episode of emesis since remain n.p.o. with NG tube. KUB reviewed by myself. Likely minimal ileus. Discussed with GI. Continue NG decompression for now. Once improved will DC NG tube and resume oral diet. improved ng out diet started abx mild subsegmental basilar atelectasis, left more pronounced than right. No acute basilar infiltrate. Extensive peripancreatic edema system with severe, acute pancreatitis. No clear focal glandular necrosis. No loculated fluid collection. No hemorrhage or gas. Mild extrahepatic biliary dilation. Enhancing gallbladder wall. No radiopaque gallstone. Recommend correlation for elevated biliary markers in addition to pancreatic enzymes. Renal cysts and hypodensities that are too small to characterize. No hydronephrosis. Transverse colonic resection with intact anastomosis. No bowel obstruction. The appendix is unremarkable. Aortoiliac atherosclerosis without aneurysm. No acute fracture. Mild thoracolumbar spondylosis. IMPRESSION: Acute pancreatitis. Distended gallbladder and CBD. No radiopaque gallstone, but recommend clinical/laboratory correlation. Incidental findings as above. Gallbladder demonstrates filling defects consistent with gallstones. The gallbladder wall is mildly thickened and mildly edematous. The common hepatic duct is mildly ectatic, measuring up to 9 mm in diameter. The common bile duct is normal in caliber. No intraluminal filling defect or obstructing stone is demonstrated. There is somewhat low insertion of the cystic duct into the common hepatic duct The pancreas is enlarged and edematous, and considerable phlegmon is seen within upper abdominal fat, similar in distribution to that described on prior CT scan. No discrete walled off fluid collection demonstrated. The pancreatic duct is normal in caliber. No focal liver lesion demonstrated. The spleen, adrenals are unremarkable. The kidneys demonstrate cysts bilaterally. The included upper pelvis appears unremarkable. Impression: Evidence of acute pancreatitis, also described on recent CT scan. No discrete fluid collection to suggest abscess or early pseudocyst formation Cholelithiasis. Mild gallbladder wall thickening. This could be related to the adjacent pancreatic inflammation, or could indicate acute cholecystitis. Correlate with clinical findings, consider nuclear medicine hepatobiliary scan if clinically indicated Ectatic common hepatic duct demonstrated, significance/etiology uncertain. Normal caliber common bile duct. No definite downstream obstructive lesion Incidental finding of bilateral renal cysts pain resolving tolerating diet much improved hand improved d/c f/u outpt with pcp and surgeon (5) Pain Assessment & Plan: hand fx noted ortho input appreciated abd pain stable kub ordered and noted Yury Baxter Oct 21, 2019 14:20
[2019-10-21 16:00] VITALS: BP 142/85
--- NOTE | 2019-10-21 18:00 | Progress Note ---
DATE: 10/21/2019 SUBJECTIVE: This is a 59-year-old male currently comfortable. Underwent colonoscopy, was negative. Tolerated procedure well and also tolerating diet. OBJECTIVE: VITAL SIGNS: Blood pressure 125/65, pulse 85, temperature 98.5. CHEST: Bilaterally clear. CARDIOVASCULAR: Regular rhythm. No gallop. No murmur. ABDOMEN: Soft. EXTREMITIES: CCE. ASSESSMENT: 1. Anemia. 2. Chronic pain. 3. Depression. 4. Anxiety. PLAN: We will add iron and folic acid and stool softener. Continue current treatment. Ko Ortega M.D. DR: DAVID JOB#: [id number] CC:
[2019-10-21] MEDS ORDERED: Metoprolol Tartrate 12.5mg TAB ORAL SCH (21:00)
--- NOTE | 2019-10-23 16:45 | Discharge Summary ---
Discharge Summary Discharge Summary _ DATE OF ADMISSION: 10/10/2019 DATE OF DISCHARGE: 10/21/2019 DISCHARGED BY: Dr. Ko Ortega CONSULTANTS: Dr. Yury Sawyer BRIEF HOSPITAL COURSE: Patient is a 59-year-old male who presented to ED due to recurrent nausea, vomiting and abdominal pain. He has medical history significant for colon CA with multiple surgeries. Upon evaluation at the ED, blood work showed leukocytosis with WBC at 11. Hemoglobin and hematocrit were stable. Electrolytes were normal. Lipase was elevated to 14,822. LFTs and bilirubin elevated. Lactic acid was 2.5. CT of the abdomen and pelvis showed distended gallbladder with acute pancreatitis. Patient was given broad-spectrum antibiotics. Repeat lactic acid was 9.9. Rapid COVID was negative. Patient was then admitted to SDU for evaluation of gallstone pancreatitis and sepsis. Patient was placed on n.p.o. He was given PPI. He was given IV hydration. He underwent surgical evaluation. Abdomen was tender but not in acute abdomen with peritonitis. He was started empirically on Zosyn. Patient had left hand pain. Imaging study showed nondisplaced base of the fourth metacarpal fracture. Patient has a soft compression wrap on the left hand. Orthopedic was consulted. Patient was placed in wrist extension brace for comfort. He was advised it will take up to 6 weeks for the fracture to heal. He was advised to start active flexion extension activities of the left hand as outpatient. In about 4 to 6 weeks, he will need repeat imaging studies and physical therapy. MRCP showed evidence of acute pancreatitis. No discrete fluid collection to suggest abscess or early pseudocyst formation. Cholelithiasis. Mild gallbladder wall thickening. Normal caliber common bile duct. No definite downstream obstruction. Plans for ERCP was placed on hold. Patient was continued on bowel rest. He was started on ice chips. Blood culture showed growth of E. coli. Zosyn was discontinued. Patient was given ceftriaxone. Diet was slowly advanced. He had improvement in LFTs. Given severity of patient's acute severe gallstone pancreatitis, he was recommended to cool down prior to cholecystectomy. Given the amount of pancreatic inflammation identified on CT and MRI, would allow inflammation to settle and subside prior to surgical intervention. Diet was advanced as tolerated. He was given pain management. Repeat CT scan showed severe pancreatitis with potential focus of necrosis but no active infectious process identified. Continue antibiotic treatment. Patient had an episode of emesis. KUB showed possible minimal ileus. Patient was placed back on n.p.o. NGT was inserted. Electrolytes were repleted. PICC line was inserted to the right arm. Antibiotic was changed to ertapenem. NGT was removed. Patient was restarted on diet. Patient had severe hypokalemia. He was given potassium and phosphorus IV supplement. Patient was tolerating diet well, voiding well and was passing flatus and BM. Pain decreased. IV pain medications was changed to p.o. Patient was eventually discharged home. Advised to follow-up with PCP surgeon for an eventual cholecystectomy. FINAL DIAGNOSES: E. coli sepsis Acute gallstone pancreatitis Bowel distention/ileus Diabetes mellitus Hypertension Anemia Hyponatremia Hypokalemia BPH Chronic pain Anxiety Depression History of colon cancer DISPOSITION: Patient was discharged home with home health. DISCHARGE MEDICATIONS: Refer to Discharge Medication List. DISCHARGE INSTRUCTIONS: Follow-up in a week. I have been assigned to complete a discharge summary on this account, I was not involved with the patient's management.--MARRY Davies Jacqueline Robles NP Oct 23, 2019 16:45
== END 2019-10-21 16:43 | disposition home health service (06) | DRG 720 ==
LOC: EDBD 16:07 → EMR 16:50 → EDBEDREQ 18:47 → OBSVTOIN 19:20 → 2W 19:20 → EDBEDREQ 19:24 → EDBEDREQSVC 19:52 → EDBEDREQ 20:10 → 4E 10-11 13:45
PROC: B518ZZA Fluoroscopy of Superior Vena Cava, Guidance (ICD-10-PCS; principal; 2019-10-17)
PROC: 02HV33Z Insertion of Infusion Device into Superior Vena Cava, Percutaneous Approach (ICD-10-PCS; principal; 2019-10-17)
DX: A41.51 Sepsis due to Escherichia coli [E. coli] (principal); K85.11 Biliary acute pancreatitis with uninfected necrosis; J18.9 Pneumonia, unspecified organism; E87.2 Acidosis; R65.20 Severe sepsis without septic shock; E87.1 Hypo-osmolality and hyponatremia; K56.7 Ileus, unspecified; E87.6 Hypokalemia; N40.0 Benign prostatic hyperplasia without lower urinary tract symptoms; S62.345A Nondisplaced fracture of base of fourth metacarpal bone, left hand, initial encounter for closed fracture; X58.XXXA Exposure to other specified factors, initial encounter; Y92.9 Unspecified place or not applicable; D64.9 Anemia, unspecified; Z85.038 Personal history of other malignant neoplasm of large intestine; E11.9 Type 2 diabetes mellitus without complications; I10 Essential (primary) hypertension; E78.5 Hyperlipidemia, unspecified; G89.29 Other chronic pain
CPT/HCPCS: 36415; 36569; 71045; 74018; 74177; 74181; 76937; 80048; 80053; 80061; 80076; 81003; 82150; 82248; 82378; 82607; 82728; 82746; 82962; 82977; 83036; 83540; 83550; 83605; 83690; 83735; 84100; 84550; 85007; 85025; 85610; 85651; 85730; 86140; 86850; 86900; 86901; 87040; 87181; 93005; 96361; 96365; 96367; 96375; 99284; J1815; J2405; J7030; J8499; U0002